=== PATIENT | female | born 1945 | race Caucasian/White ===

== ENCOUNTER 2016-05-30 06:30 | Emergency (ER) | payer OTHER ==
[~2016-05-30] VITALS: Ht 144.8 cm; Wt 53.5 kg
[~2016-05-30 06:30] MED LIST: AMLODIPINE BESY10 M1 PO; AMOXICILLI250 MG/51 PO; ARICEPT10 M1 PO; ATORVASTATIN CA20 MG PO; ATORVASTATIN CA40 MG PO; AUGMENTIN 500M500 MG PO; CLINDAMYCIN HC300 M1 PO; CLONAZEPAM0.5 MG PO; DEPAKENE250 MG/5 M PO; DONEPEZIL HYDRO10 MG PO; DONEPEZIL HYDROC5 MG PO; ESCITALOPRAM20 MG PO; FLONASE ALLERG9.9 ML NAS; HALDOL 1MG TABLE1 MG PO; HALOPERIDOL1 M1 PO; HALOPERIDOL2 M1 PO; HCTZ; HYZAAR 12.5 MG-1 TAB PO; KEFLEX500 MG PO; KLONOPIN0.5 M1 PO; LEXAPRO10 M1 PO; LEXAPRO5 MG/5 ML PO; LIORESAL 10MG T10 MG PO; LIPITOR40 M1 PO; LOSARTAN; MIRALAX17 G1 PO; NORTRIPTYLINE H25 MG; OXYCODONE5 M1 PO; PERCOCET 325 MG1 TA2 PO; PERI-COLACE 501 TAB PO; RISPERIDONE0.25 MG; SENNOSIDES-DOC1 EACH PO; VITAMIN B122500 MC1 PO; VITAMIN B12500 MCG PO; VITAMIN D3400 UNI1 PO
[2016-05-30] MEDS ORDERED: TRAMADOL HCL50 M1 PO (08:04)
[2016-05-30] MEDS ORDERED: LINZESS145 MC1 PO (08:05)
--- NOTE | 2016-05-30 09:05 | RADIOLOGY REPORT ---
EXAMINATION: XR PORTABLE CHEST CLINICAL INFORMATION: 71-year-old female with cough. Symptoms of bronchitis. COMPARISON: Chest x-ray done 04/12/2016. TECHNIQUE: AP portable semierect view of the chest. Exam is somewhat limited by the fact the patient could not lift her head which overlies one half of the left hemithorax. FINDINGS: The heart is top normal in size. The visualized lungs are clear of active disease. There is no apparent pleural effusion. IMPRESSION: Limited exam. No active disease.
[2016-05-30 09:18] VITALS: BP 115/56
[2016-05-30] MEDS ORDERED: AMOXICILLI400 MG/51 PO (09:29)
[2016-05-30] MEDS ORDERED: AFRIN30 ML NASB (09:29)
[2016-05-30] MEDS ORDERED: ROBITUSSIN COU118 M1 PO (09:29)
--- NOTE | 2016-05-30 09:29 | ED INFLUENZA/URI COMPLAINT ---
History of Present Illness General Chief Complaint: General Adult Stated Complaint: BIBA BAD COUGH Source: family, old records Exam Limitations: not alert/orientated, clinical condition Vital Signs & Intake/Output Vital Signs & Intake/Output Vital Signs Date Time Temp Pulse Resp B/P Pulse O2 O2 Flow FiO2 Ox Delivery Rate 05/30 0918 96.5 57 16 115/56 95 Room Air 05/30 0639 97.1 63 16 142/65 95 Room Air Allergies Coded Allergies: NO KNOWN ALLERGIES (04/12/16) Reconcile Medications Amlodipine Besylate (Amlodipine) 10 MG TABLET 1 TAB PO DAILY HEART HEALTH ( Reported) Amoxicillin 400 MG/5 ML SUSP.RECON 10 ML PO BID sinusitis Atorvastatin Calcium (Lipitor) 40 MG TABLET 1 TAB PO QPM CHOLESTEROL ( Reported) CHOLECALCIFEROL (VITAMIN D3) (Vitamin D3) 400 UNIT TAB.CHEW 1 TAB PO DAILY SUPPLEMENT (Reported) Clonazepam (Klonopin) 0.5 MG TABLET 1 TAB PO BID ANXIETY (Reported) Cyanocobalamin (Vitamin B12) 500 MCG TAB 1 TAB PO DAILY SUPPLEMENT (Reported) Donepezil HCl (Aricept) 10 MG TABLET 1 TAB PO QPM DEMENTIA (Reported) Escitalopram Oxalate (Lexapro) 10 MG TABLET 1 TAB PO QAM DEPRESSION/ANXIETY ( Reported) Guaifenesin/Dextromethorphan (Robitussin Cough-Chest Dm Liq) 200 MG-10 MG/5 ML LIQUID 10 ML PO Q6P PRN cough Haloperidol 1 MG TABLET 1 TAB PO BID AGITATION (Reported) Linaclotide (Linzess) 145 MCG CAPSULE 1 CAP PO DAILY GI (Reported) Oxymetazoline HCl (Afrin) 0.05 % SPRAY 2 SPRAY NASB BID sinusitis Sennosides/Docusate Sodium (Sennosides-Docusate Sodium Tab) 8.6 MG-50 MG TABLET 1 TAB PO QPM CONSTIPATION (Reported) Tramadol HCl 50 MG TABLET 1 TAB PO BIDP PRN PAIN (Reported) Valproic Acid (Depakene 250MG/5ML UNIT DOSE CUP) 250 MG/5 ML (5 ML) SOLUTION 1 TSP PO BID SEIZURES (Reported) Triage Note: PT BIBA FROM HOME FOR COUGH THAT HAS LASTED A COUPLE WEEKS NOW BUT HAS WORSENED OVER THE LAST COUPLE DAYS. PT HAS HX OF CVA AND PARALYZED ON LEFT SIDE. UPON ARRIVAL PT ALERT, ANSWERS TO SOME QUESTIONS. Triage Nurses Notes Reviewed? yes Onset: 1 month Duration: week(s):, waxing and waning Timing: recent history Severity: moderate Prior Episodes/Possible Cause: illness exposure No Modifying Factors: none Associated Symptoms: cough, nasal congestion, nasal drainage LMP (ages 10-50): post menopausal : No Patient currently breastfeeds: No HPI: 1 month prior to admission reports patient is had episodic cough worse at night preceded by nasal congestion and sneezing. There has been no fever chills nausea vomiting diarrhea abdominal pain chest pain shortness breath headache dysuria rash bleeding. Past History Travel History Traveled to [place] past 21 day No Medical History Any Pertinent Medical History? see below for history Neurological: CVA, dementia, seizure, CVA, LEFT HEMIPARESIS EENT: NONE Cardiovascular: hypertension, hyperlipidemia Respiratory: NONE Gastrointestinal: constipation Hepatic: NONE Renal: NONE Musculoskeletal: NONE Psychiatric: anxiety, depression Endocrine: NONE Blood Disorders: NONE Cancer(s): NONE INTER COM SERVICER/Reproductive: NONE History of MRSA: No History of VRE: No History of CDIFF: No Surgical History Surgical History: non-contributory Psychosocial History Who do you live with Spouse Services at Home Home Health Aide, Nursing What is your primary language Latvian Tobacco Use: Never used Family History Family History, If Any: BROTHER (pilonidal abscess). Hx Contributory? No Review of Systems Review of Systems Constitutional: Reports: no symptoms. EENTM: Reports: no symptoms. Respiratory: Reports: see HPI, cough. Cardiovascular: Reports: no symptoms. GI: Reports: no symptoms. Genitourinary: Reports: no symptoms. Musculoskeletal: Reports: no symptoms. Skin: Reports: no symptoms. Neurological/Psychological: Reports: no symptoms. Hematologic/Endocrine: Reports: no symptoms. Immunologic/Allergic: Reports: no symptoms. All Other Systems: Reviewed and Negative Physical Exam Physical Exam General Appearance: well developed/nourished, awake, comfortable Head: atraumatic, normal appearance Eyes: Bilateral: normal appearance, PERRL, EOMI. Ears, Nose, Throat: moist mucous membrane, nasal congestion Neck: normal inspection, supple, full range of motion, trachea midline, no midline tenderness Respiratory: normal breath sounds, chest non-tender, no respiratory distress, quiet respiration, lungs clear Cardiovascular: regular rate/rhythm, normal peripheral pulses, norml femoral pulses equa Peripheral Pulses: 4+ carotid (R), 4+ carotid (L) Gastrointestinal: normal bowel sounds, soft, non-tender, no organomegaly Back: normal inspection, normal range of motion Extremities: normal inspection, normal capillary refill, normal range of motion, no edema Neurologic/Psych: no motor/sensory deficits, awake, alert, nutritionist public health II-XII nml as tested, motor/sensory deficits Reflexes: 2+: bicep (R), bicep (L). Skin: intact, normal color, warm/dry Lymphatic: no anterior cervical clovis Core Measures Severe Sepsis Present: No Septic Shock Present: No Progress Differential Diagnosis: influenza, otitis, pneumonia, pharyngitis, sinusitis Plan of Care: antibiotics afrin antitussive Diagnostic Imaging: Viewed by Me: Radiology Read. Discussed w/RAD: Radiology Read. CXR Impression: no acute abnormality Initial ED EKG: none Departure Departure Time of Disposition: 923 Disposition: HOME OR SELF CARE Condition: Stable Clinical Impression Primary Impression: Sinusitis Qualifiers: Sinusitis location: unspecified location Chronicity: acute Recurrence: not specified as recurrent Qualified Code: J01.90 - Acute sinusitis, unspecified Referrals: JESSICA PULIDO MD (PCP/Family) Departure Forms: Customer Survey General Discharge Information Prescriptions: Current Visit Scripts Amoxicillin 10 ML PO BID #200 ML Oxymetazoline HCl (Afrin) 2 SPRAY NASB BID #30 ML Guaifenesin/Dextromethorphan (Robitussin Cough-Chest Dm Liq) 10 ML PO Q6P PRN cough #240 ML Ref 1
== END 2016-05-30 09:41 ==
LOC: ERH 06:30
DX: J32.9 Chronic sinusitis, unspecified (principal)

== ENCOUNTER 2016-07-07 22:24 | Inpatient (IN) | payer OTHER ==
[~2016-07-07] VITALS: Ht 157.5 cm; Wt 45.4 kg
[~2016-07-07 22:24] MED LIST changes: +AFRIN30 ML NASB; +AMOXICILLI400 MG/51 PO; +LINZESS145 MC1 PO; +ROBITUSSIN COU118 M1 PO; +TRAMADOL HCL50 M1 PO
--- NOTE | 2016-07-07 22:40 | ED DYSPNEA/ASTHMA COMPLAINT ---
History of Present Illness General Chief Complaint: General Adult Stated Complaint: BIBA, COUGH, VOMITING Source: patient, EMS Exam Limitations: clinical condition Vital Signs & Intake/Output Vital Signs & Intake/Output Vital Signs Date Time Temp Pulse Resp B/P Pulse O2 O2 Flow FiO2 Ox Delivery Rate 07/08 0241 98.3 63 20 113/53 98 Room Air 07/07 2304 95 Nasal 2.0L Cannula 07/07 2250 97 Nasal 2.0L Cannula 07/077 99.8 84 20 164/70 94 Nasal 2.0L Cannula Allergies Coded Allergies: NO KNOWN ALLERGIES (04/12/16) Reconcile Medications Amlodipine Besylate (Amlodipine) 10 MG TABLET 1 TAB PO DAILY HEART HEALTH ( Reported) Amoxicillin 400 MG/5 ML SUSP.RECON 10 ML PO BID sinusitis Atorvastatin Calcium (Lipitor) 40 MG TABLET 1 TAB PO QPM CHOLESTEROL ( Reported) CHOLECALCIFEROL (VITAMIN D3) (Vitamin D3) 400 UNIT TAB.CHEW 1 TAB PO DAILY SUPPLEMENT (Reported) Clonazepam (Klonopin) 0.5 MG TABLET 1 TAB PO BID ANXIETY (Reported) Cyanocobalamin (Vitamin B12) 500 MCG TAB 1 TAB PO DAILY SUPPLEMENT (Reported) Donepezil HCl (Aricept) 10 MG TABLET 1 TAB PO QPM DEMENTIA (Reported) Escitalopram Oxalate (Lexapro) 10 MG TABLET 1 TAB PO QAM DEPRESSION/ANXIETY ( Reported) Guaifenesin/Dextromethorphan (Robitussin Cough-Chest Dm Liq) 200 MG-10 MG/5 ML LIQUID 10 ML PO Q6P PRN cough Haloperidol 1 MG TABLET 1 TAB PO BID AGITATION (Reported) Linaclotide (Linzess) 145 MCG CAPSULE 1 CAP PO DAILY GI (Reported) Oxymetazoline HCl (Afrin) 0.05 % SPRAY 2 SPRAY NASB BID sinusitis Sennosides/Docusate Sodium (Sennosides-Docusate Sodium Tab) 8.6 MG-50 MG TABLET 1 TAB PO QPM CONSTIPATION (Reported) Tramadol HCl 50 MG TABLET 1 TAB PO BIDP PRN PAIN (Reported) Valproic Acid (Depakene 250MG/5ML UNIT DOSE CUP) 250 MG/5 ML (5 ML) SOLUTION 1 TSP PO BID SEIZURES (Reported) Triage Nurses Notes Reviewed? yes Onset: Gradual Duration: day(s): Timing: recent history Severity: moderate Activities at Onset: none Prior Episodes/Possible Cause: occasional episodes Modifying Factors: Improves With: rest. Associated Symptoms: cough HPI: 71-year-old woman history of stroke and aspiration pneumonia presents with cough dyspnea and hypoxia. Her son states that she has been to the emergency department 3 times. She has been on oral antibiotics. She continues to cough to the point where she becomes short of breath. 911 was called. Her O2 sat was 90% in the field. Her son states that she has been increasingly lethargic, with decreased oral intake. She also has a cough productive of some phlegm. She has no fever, nausea, vomiting, diarrhea. Past History Travel History Traveled to [place] past 21 day No Medical History Any Pertinent Medical History? 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 Hx Contributory? No Review of Systems Review of Systems Constitutional: Reports: no symptoms. EENTM: Reports: no symptoms. Respiratory: Reports: no symptoms. Cardiovascular: Reports: no symptoms. GI: Reports: no symptoms. Genitourinary: Reports: no symptoms. Musculoskeletal: Reports: no symptoms. Skin: Reports: no symptoms. Neurological/Psychological: Reports: no symptoms. Hematologic/Endocrine: Reports: no symptoms. Immunologic/Allergic: Reports: no symptoms. All Other Systems: Reviewed and Negative Physical Exam Physical Exam General Appearance: well developed/nourished, mild distress Head: atraumatic, normal appearance Eyes: Bilateral: normal appearance. Ears, Nose, Throat: normal pharynx Neck: normal inspection Respiratory: rhonchi Cardiovascular: regular rate/rhythm Gastrointestinal: normal bowel sounds, soft, non-tender, no organomegaly Extremities: normal inspection, normal capillary refill, normal range of motion, no edema Neurologic/Psych: left-sided milagros-paracystic with contraction of the left hand. Skin: intact, normal color, warm/dry Core Measures ACS in differential dx? No Severe Sepsis Present: No Septic Shock Present: No Progress Differential Diagnosis: asthma, AMI, bronchitis, CHF, COPD, pneumonia Plan of Care: Orders Procedure Date/time Status Nothing by Mouth 07/08 B Active CBC WITHOUT DIFFERENTIAL 07/08 06 Active BASIC ELECTROLYTES PLUS BUN&CR 07/08 06 Active URINALYSIS 07/08 0221 Active Patient Data 07/08 0217 Active Pathway - chart 07/08 0206 Active House Staff 07/08 0206 Active Patient Data 07/08 0206 Active RAPID VIRAL INFLUENZA A 07/08 0206 Active STREP PNEUMO URINARY ANTIGEN 07/08 0206 Active LEGIONELLA URINARY ANTIGEN 07/08 0206 Active LOWER RESPIRATORY CULTURE 07/08 0206 Active Patient Data 07/08 0131 Active Saline Lock 07/08 0129 Active Misc Message 07/08 0129 Active ED Holding Orders 07/08 0129 Active Admit to inpatient 07/08 0129 Active Vital Signs 07/08 0129 Active Code Status 07/08 0129 Active SWALLOW EVALUATION 07/08 UNK Active VTE Mechanical Prophylaxis 07/[address] CHEST W IV CONTRAST 07/08 UNK Active BLOOD CULTURE 07/07 2245 Active BLOOD CULTURE 07/07 2241 Active TROPONIN LEVEL 07/07 2241 Complete COMPREHENSIVE METABOLIC PANEL 07/07 2241 Complete CBC WITHOUT DIFFERENTIAL 07/07 2241 Complete Current Medications Sig/Claudette Start time Last Medication Dose Stop Time Status Admin Atorvastatin Calcium 40 MG QPM 07/08 2200 AC (Lipitor) Donepezil HCl 10 MG QPM 07/08 2200 UNVr (Aricept) Senna/Docusate Sodium 1 TAB QPM 07/08 2200 AC (Senokot S) Amlodipine Besylate 10 MG DAILY 07/08 1000 UNVr (Norvasc) Enoxaparin Sodium 40 MG DAILY 07/08 1000 UNVr (Lovenox) Escitalopram Oxalate 10 MG QAM 07/08 1000 UNVr (Lexapro) Sodium Chloride 1,000 ML Q13H 07/08 0230 UNVr (Normal Saline 0.9%) Acetaminophen 1,000 MG Q6P PRN 07/08 0215 AC (Ofirmev) N/A 1 UNIT (No Carrier) Acetaminophen 650 MG Q6P PRN 07/08 0145 AC (Tylenol) Docusate Sodium 100 MG DAILY NEEDED PRN 07/08 144 AC (Colace) Ibuprofen 600 MG Q6P PRN 07/08 144 UNVr (Motrin) Clonazepam 0.5 MG BID 07/08 140 AC (KlonoPIN) 07/16 139 Valproic Acid 250 MG BID 07/08 140 UNVr (Depakene) Laboratory Tests 07/08/16 0014: Anion Gap 10, Estimated GFR 55 L, BUN/Creatinine Ratio 24.0, Glucose 98, Calcium 9.1, Total Bilirubin 0.5, AST 17, ALT 20, Alkaline Phosphatase 97, Troponin I < 0.01, Total Protein 7.4, Albumin 3.5, Globulin 3.9, Albumin/ Globulin Ratio 0.9 L 07/07/16 2345: CBC w Diff NO MAN DIFF REQ, RBC 4.50, MCV 94.7, MCH 32.5 H, RDW 14.1, MPV 9.3, Gran % 85.8 H, Lymphocytes % 6.5 L, Monocytes % 7.4, Eosinophils % 0.3, Basophils % 0 L, Absolute Granulocytes 13.1 H, Absolute Lymphocytes 1.0 L, Absolute Monocytes 1.1 H, Absolute Eosinophils 0, Absolute Basophils 0, PUBS MCHC 34.3 Microbiology 07/08 0249 NASOPHARYN: Influenza Virus A & B Rapid Smear - RECD 07/08 020 URINE ROUT: Legionella Antigen - ORD 07/08 020 URINE ROUT: Streptococcus pneumoniae Antigen (M - ORD 07/08 0206 LOWER RESP: Respiratory Culture - COLB 07/08 020 LOWER RESP: Gram Stain - COLB 07/07 2345 BLOOD: Blood Culture - RECD 07/07 2241 BLOOD: Blood Culture - ORD Diagnostic Imaging: Viewed by Me: Radiology Read. Discussed w/RAD: Radiology Read. CXR Impression: no acute abnormality, no infiltrates, normal size heart, normal mediastinum Initial ED EKG: normal axis, normal intervals, normal p-waves, normal QRS complex, normal sinus rhythm Departure Departure Disposition: STILL A PATIENT Condition: Stable Clinical Impression Primary Impression: Hypoxia Secondary Impressions: Pneumonia Referrals: JESSICA PULIDO MD (PCP/Family) Departure Forms: Customer Survey General Discharge Information Admission Note Spoke With: JESSICA PULIDO MD Documentation of Exam: Documentation of any treatments & extenuating circumstances including Concerns Regarding Discharge (functional status, medication knowledge or non-compliance, living conditions, etc.) that warrant an admission rather than observation: pt with hypoxia to 89-90% on room air, corrects to 95% on 2-3l nc... pt with significant phlegmatous cough. Although cxr is benign, I believe she has aspiration pneumonia vs community acquired pneumonia... pt safe for gen med, iv abx, 02 support. Critical Care Note Critical Care Note Critical Care Time: non-applicable
--- NOTE | 2016-07-07 22:42 | NUR ---
71 YEAR OLD FEMALE BIBA FROM HOME C/O COUGH AND CONGESTION WORSENING THE PAST FEW DAYS. PER EMS PT WAS FOUND TO BE 88% ON RA. PT ARRIVES TO ED ALERT BUT NONVERBAL PER BASELINE. O2 95% ON NC 2L. PT SPOUSE TO BEDSIDE, DR. JIMENEZ IN FOR EVAL.
--- NOTE | 2016-07-07 23:03 | NUR ---
RT TO BEDSIDE FOR DUONEB.
--- NOTE | 2016-07-07 23:12 | RADIOLOGY REPORT ---
EXAMINATION: XR PORTABLE CHEST CLINICAL INFORMATION: Dyspnea. COMPARISON: Chest x-ray 04/12/2016. 05/30/2016 TECHNIQUE: Portable AP portable view of the chest was obtained. 10:47 PM FINDINGS: Lung apices are obscured centrally by the patient's chin. The visualized lungs are normally aerated. No infiltrate. No pleural effusion. The cardiac and the mediastinal contours are normal. There is no pulmonary vascular congestion. IMPRESSION: No acute change of the chest.
--- NOTE | 2016-07-07 23:51 | NUR ---
IV INSERTED. LABS DRAWN-SST,LAV,BLUE 1ST SET BL CULT ALL SENT
[2016-07-08 00:01] LABS: ABSOLUTE BASOPHIL COUNT 0 /CUMM (0.0-0.2); ABSOLUTE EOSINOPHIL COUNT 0 /CUMM (0.0-0.7); ABSOLUTE GRANULOCYTE CT 13.1 /CUMM (1.4-6.5); ABSOLUTE MONOCYTE COUNT 1.1 /CUMM (0.10-0.60); BASOPHIL % 0 % (0.0-2.0); EOSINOPHIL % 0.3 % (0-5); HEMATOCRIT 42.6 % (37-47); MEAN CORPUSCULAR HGB 32.5 PG (27.0-31.0); MEAN CORPUSCULAR HGB CONC 34.3 G/DL (33.0-37.0); MEAN CORPUSCULAR VOLUME 94.7 FL (81.0-99.0); MEAN PLATELET VOLUME 9.3 FL (7.4-10.4); PLATELET COUNT 282 /CUMM (130-400); RBC DISTRIBUTION WIDTH 14.1 % (11.5-14.5); WHITE BLOOD CELL COUNT 15.2 /CUMM (4.8-10.8)
[2016-07-08 00:12] LABS: GRANULOCYTE % 85.8 % (42.2-75.2)
--- NOTE | 2016-07-08 00:15 | NUR ---
SST REDRAWN AND SENT TO LAB.
--- NOTE | 2016-07-08 00:37 | NUR ---
NON PRODUCTIVE COUGH PRESENT TIARA W/PHILLIPIENE GIVE PO
--- NOTE | 2016-07-08 01:30 | NUR ---
HOUSE STAFF HERE TO KAYLIN
--- NOTE | 2016-07-08 02:03 | NUR ---
PT GOING TO ROOM [id number]
--- NOTE | 2016-07-08 02:09 | History & Physical ---
See Addendum KLAUS LONG,MELIZA 07/08/16 0208: General Information and HPI MD Statement: I have seen and personally examined VERONICA TRENT and documented this H&P. The patient is a 71 year old F who presented with a patient stated chief complaint of cough. Source of Information: family Exam Limitations: unable to give history History of Present Illness: This is a 71-year-old lady with a past medical history of CVA with residual left -sided hemiparesis, hypertension, seizures, and depression, dementia, hyperlipidemia is BIBA for evaluation of worsening chronic cough. Patient is nonverbal at baseline and unable to give history, or for the entire history was obtained from her . Patient is reported to have had a 1- month-old chronic cough that has required 2-3 ED visits recently that resulted in patient being sent home on Augmentin and promethazine with codeine. Patient' s pulse reports that her cough today progressively worsened to a point that he decided to activate her Life Alert button. Patient's spouse also reports that he was recently ill with upper respiratory infection required antibiotic treatment. He also reports noticing patient's recent decrease in oral intake and increase weakness/lethargy. He denies noticing the patient having any chills, fevers, choking upon eating, nausea, or vomiting. At baseline, patient is not independent with her ADLs and is mostly bedridden and uses a wheelchair formulation. Patient's pulse reporting feeding patient with only pureed diet. Allergies/Medications Allergies: Coded Allergies: NO KNOWN ALLERGIES (04/12/16) Home Med list Amlodipine Besylate (Amlodipine) 10 MG TABLET 1 TAB PO DAILY HEART HEALTH ( Reported) Amoxicillin 400 MG/5 ML SUSP.RECON 10 ML PO BID sinusitis Atorvastatin Calcium (Lipitor) 40 MG TABLET 1 TAB PO QPM CHOLESTEROL ( Reported) CHOLECALCIFEROL (VITAMIN D3) (Vitamin D3) 400 UNIT TAB.CHEW 1 TAB PO DAILY SUPPLEMENT (Reported) Clonazepam (Klonopin) 0.5 MG TABLET 1 TAB PO BID ANXIETY (Reported) Cyanocobalamin (Vitamin B12) 500 MCG TAB 1 TAB PO DAILY SUPPLEMENT (Reported) Donepezil HCl (Aricept) 10 MG TABLET 1 TAB PO QPM DEMENTIA (Reported) Escitalopram Oxalate (Lexapro) 10 MG TABLET 1 TAB PO QAM DEPRESSION/ANXIETY ( Reported) Guaifenesin/Dextromethorphan (Robitussin Cough-Chest Dm Liq) 200 MG-10 MG/5 ML LIQUID 10 ML PO Q6P PRN cough Haloperidol 1 MG TABLET 1 TAB PO BID AGITATION (Reported) Linaclotide (Linzess) 145 MCG CAPSULE 1 CAP PO DAILY GI (Reported) Oxymetazoline HCl (Afrin) 0.05 % SPRAY 2 SPRAY NASB BID sinusitis Sennosides/Docusate Sodium (Sennosides-Docusate Sodium Tab) 8.6 MG-50 MG TABLET 1 TAB PO QPM CONSTIPATION (Reported) Tramadol HCl 50 MG TABLET 1 TAB PO BIDP PRN PAIN (Reported) Valproic Acid (Depakene 250MG/5ML UNIT DOSE CUP) 250 MG/5 ML (5 ML) SOLUTION 1 TSP PO BID SEIZURES (Reported) Past History Travel History Traveled to [place] past 21 day No Medical History Neurological: CVA, dementia, seizure, CVA, LEFT HEMIPARESIS EENT: NONE Cardiovascular: hypertension, hyperlipidemia Respiratory: NONE Gastrointestinal: constipation Hepatic: NONE Renal: NONE Musculoskeletal: NONE Psychiatric: anxiety, depression Endocrine: NONE Blood Disorders: NONE Cancer(s): NONE HEAD OF HISTORY/Reproductive: NONE History of MRSA: No History of VRE: No History of CDIFF: No Surgical History Surgical History: non-contributory Past Family/Social History Family History Relations & Conditions if any BROTHER (pilonidal abscess). Psychosocial History Services at Home: Home Health Aide, Nursing Review of Systems Review of Systems Constitutional: Reports: see HPI (full ROS Unobtainable). Exam & Diagnostic Data Last 24 Hrs of Vital Signs/I&O Vital Signs Date Time Temp Pulse Resp B/P Pulse O2 O2 Flow FiO2 Ox Delivery Rate 07/09 799 99.4 52 20 92/60 96 Nasal Cannula 07/08 0416 97.7 64 20 100/60 96 Nasal 2.0L Cannula 07/08 0411 96 Nasal 2.0L Cannula 07/08 0241 98.3 63 20 113/53 98 Nasal 2.0L Cannula 07/07 2304 95 Nasal 2.0L Cannula 07/07 2250 97 Nasal 2.0L Cannula 07/07 2236 99.8 84 20 164/70 94 Nasal 2.0L Cannula Intake & Output 07/08 1600 07/08 0800 07/08 0000 Intake Total 680 Output Total 250 Balance 430 Intake, IV 650 Intake, Oral 30 Number 1 Bowel Movements Output, Urine 250 Patient 45.359 kg Weight Physical Exam General Appearance Alert, minimally verbal,unable to access orientation Skin No Significant Lesion HEENT dry oral mucosa Neck Supple, No JVD Lymphatic Cervical nl Cardiovascular Regular Rate, Normal S1, Normal S2 Lungs Clear to Auscultation, Normal Air Movement Abdomen Normal Bowel Sounds, Soft, No Tenderness Neurological right sided hemiparesis Extremities No Clubbing, No Cyanosis, No Edema Vascular Pulses Symmetrical Assessment/Plan Assessment: This is a 71-year-old lady with a past medical history of CVA with residual left hemiparesis, hypertension, mood disorder, dementia, depression is brought in for evaluation of a progressively worsening cough. Impression Progressively worsening cough (onset 1 month ago) History of CVA with residual hemiparesis History of mood disorder History of Birchleaf's disease Plan * Will admit to general medicine floor * Will keep off antibiotic for now, as she needs afebrile, does not have any leukocytosis, and chest x-ray is unremarkable for any acute finding of pneumonia. * Will obtain blood cultures * Will obtain rapid influenza test * Will obtain sputum culture * Will obtain urine Legionella and strep pneumo antigen * Will obtain formal swallow eval, as patient had a recent history of aspiration and is currently on pure diet at home As Ranked By This Provider Problem List: 1. Cough Core Measures/Miscellaneous Acute Coronary Syndrome ACS Diagnosis: No Cerebrovascular Accident CVA/TIA Diagnosis: No Congestive Heart Failure CHF Diagnosis: No Venous Thromboembolism VTE Risk Factors: Age > 40 VTE Prophylaxis Ordered Inpt: Mechanical (ALPS[facility]TEDS) [facility] prophylaxis d/t: No contraindications No VTE Pharm Prophylaxis d/t: Active bleeding VTE Diagnosis: No VTE Type: NONE VTE Confirmed by (Test): NONE Severe Sepsis Severe Sepsis Present: No Septic Shock Septic Shock Present: No Miscellaneous Documentation Attending Case Discussed With: NOVA PRAKASH MD Primary Care Physician: JESSICA PULIDO MD Patient sees these Specialists SERVER Level of Patient Care: General Medicine GINAGUILAR 07/08/16 0209: Resident Review Statement Resident Statement: examined this patient, discussed with advertising intern, agreed with advertising intern Other Findings: Patient is a 71-year-old female with a past medical history of hypertension, dementia, CVA left-sided hemiparesis, seizures, depression, hyperlipidemia, was brought in by an ambulance for the evaluation of worsening cough for the last 1 month. Patient is nonverbal and bedbound at baseline so most of the history was obtained from the . As per ,Patient has been seen in the ER for couple of times in the last 6 weeks with a similar complaints.She has been on Augmentin without any improvement in her symptoms. Tonight she was coughing a lot, could not able to sleep, so was brought in to the ER for further evaluation. 911 was called and she was saturating in the [address] to the hospital. also reported reported worsening lethargic she with decreased oral intake. Denied any fever or chills. Vitals on admission Debridement again 0.8, pulse 84, respiratory rate 20, blood pressure 164/70 saturating more than 92% on 2 L. General Appearance: Alert , nonverbal . Skin: Grossly normal HEENT: PEERLA Neck: Supple, No JVD Cardiovascular: Regular Rate, Normal S1, Normal S2, No Murmurs Lungs: Normal respirations bilaterally without any rhonchi or wheeze Abdomen: Normal Bowel Sounds, without any tenderness Extremities: No Clubbing, No Cyanosis, No Edema Vascular: Normal Pulses Pertinent labs: WBC count 15.2 with granulocytosis of 85.8, normal H&H, elevated BUN with normal creatinine. Chest x-ray :No acute change of the chest. Assessment and plan: 1. Chronic cough worsening for the last couple of days possible bronchitis/ aspiration: * We'll admit the patient to [facility] floor * Patient already received one-time dose of IV ceftriaxone and azithromycin in the ED, will hold off any antibiotics for now, as chest x-ray did not show any evidence of aspiration or pneumonia.If patient spikes a fever will consider starting the patient on IV Unasyn. * Will do CAT scan of the chest with IV contrast. For further evaluation * Blood cultures have been sent will send sputum culture, urine Legionella and strep pneumo antigens check rapid flu. * Monitor vitals every 4 hours * Watch for any hemodynamic instability * Continue oxygen to keep saturations above 92%. * Continue Robitussin with codeine. * Keep the patient nothing by mouth for now continue gentle hydration will do formal swallow elevation the morning 2. History of CVA left-sided hemiparesis: * Continue atorvastatin. 3. History of Alzheimer's disease * Continue Aricept. 4. History of mood disorder: * Continue home dose of valproic acid. 5. Mild to moderate pain controlled with Tylenol 6. DVT prophylaxis with subcutaneous Lovenox 7. Patient is full
--- NOTE | 2016-07-08 03:04 | NUR ---
FLU SWAB OBTAINED AND SENT CATH UA OBTAINED AND SPEC X 3 SENT INCONTINENT OF SM AMT OF SOFT BROWN STOOL.
--- NOTE | 2016-07-08 03:40 | NUR ---
REPORT CALLED TO PAWEL CHRISTINE
[2016-07-08 04:16] VITALS: BP 100/60
[2016-07-08 08:00] VITALS: BP 92/60
[2016-07-08 08:07] LABS: ABSOLUTE BASOPHIL COUNT 0 /CUMM (0.0-0.2); ABSOLUTE EOSINOPHIL COUNT 0 /CUMM (0.0-0.7); ABSOLUTE LYMPH COUNT 0.8 /CUMM (1.2-3.4); MEAN CORPUSCULAR HGB CONC 34.3 G/DL (33.0-37.0)
[2016-07-08 08:15] LABS: ABSOLUTE GRANULOCYTE CT 13.8 /CUMM (1.4-6.5); ABSOLUTE MONOCYTE COUNT 1.3 /CUMM (0.10-0.60); BASOPHIL % 0.1 % (0.0-2.0); EOSINOPHIL % 0.1 % (0-5); MEAN CORPUSCULAR HGB 32.6 PG (27.0-31.0); MEAN CORPUSCULAR VOLUME 94.9 FL (81.0-99.0); MEAN PLATELET VOLUME 9.3 FL (7.4-10.4); PLATELET COUNT 245 /CUMM (130-400); RBC DISTRIBUTION WIDTH 14.4 % (11.5-14.5); RED BLOOD CELL CT 3.47 /CUMM (4.20-5.40); WHITE BLOOD CELL COUNT 15.9 /CUMM (4.8-10.8)
[2016-07-08 08:22] LABS: HEMATOCRIT 32.9 % (37-47)
[2016-07-08 08:45] LABS: GRANULOCYTE % 86.7 % (42.2-75.2)
--- NOTE | 2016-07-08 10:18 | NUR ---
SPEECH THERAPY: ATTEMPTED TO SEE PT FOR SWALLOW EVALUATION. PER RN, PT HAS BEEN LETHARGIC. RN SPOKE TO PT'S WHO INDICATED PT WAS TOLERATING A PUREE DIET AT HOME. AT BEDSIDE, PT WAS SLEEPING; LEANING TOWARDS THE LEFT SIDE. GIVEN VERBAL AND TACTILE STIMULI; PT WAS ABLE TO OPEN HER EYES FOR APPROX. 5 SECONDS. PT UNABLE TO MAINTAIN AROUSAL. ST TO RETURN AT A LATER TIME FOR SWALLOW EVALUATION CLINICALLY INDICATED. D/W RN.
--- NOTE | 2016-07-08 12:36 | Admission Certification ---
Admission Certification Certification Statement - As attending physician, I certify that at the time of - admission, based on clinical presentation, severity of - symptoms, need for further diagnostic testing and - therapeutic interventions, and risk of adverse outcomes - without in-hospital treatment, in my clinical assessment, - this patient requires an acute hospital stay for a minimum - of two nights or longer. I have also considered psychsocial - factors such as support system, advanced age, financial - issues, cognitive issues, and failed out-patient treatments, - past re-admission history, safety of patient, and lack of - compliance as applicable. Specific rationale supporting this admission is: Cough, vomiting, slight hypoxemia low-grade fever with probably aspiration pneumonia
--- NOTE | 2016-07-08 12:38 | PN- Att Addend ---
Attending Addendum Attending Brief Note 71-year-old white female previous history of CVA and aspiration pneumonias. Has been on oral antibiotics and lives at home with her and visiting nurses with her has been sick with a cold patient got worse with cough to the point of maximal vomit came to the ER, with a low-grade temperature and leukocytosis, the chest x-ray showed no acute infiltrates at this time. Repeat x-ray may show any infiltrate, a BUN was slightly elevated Laboratory Tests 07/08 07/08 0710 0304 Chemistry Sodium (137 - 145 mmol/L) 143 Potassium (3.5 - 5.1 mmol/L) 4.1 Chloride (98 - 107 mmol/L) 108 H Carbon Dioxide (22 - 30 mmol/L) 27 Anion Gap (5 - 16) 8 BUN (7 - 17 mg/dL) 24 H Creatinine (0.5 - 1.0 mg/dL) 0.9 Estimated GFR (>60 ml/min) > 60 BUN/Creatinine Ratio (7 - 25 %) 26.7 H Hematology CBC w Diff NO MAN DIFF REQ WBC (4.8 - 10.8 /CUMM) 15.9 H RBC (4.20 - 5.40 /CUMM) 3.47 L Hgb (12.0 - 16.0 G/DL) 11.3 L Hct (37 - 47 %) 32.9 L MCV (81.0 - 99.0 FL) 94.9 MCH (27.0 - 31.0 PG) 32.6 H RDW (11.5 - 14.5 %) 14.4 Plt Count (130 - 400 /CUMM) 245 MPV (7.4 - 10.4 FL) 9.3 Gran % (42.2 - 75.2 %) 86.7 H Lymphocytes % (20.5 - 51.1 %) 5.1 L Monocytes % (1.7 - 9.3 %) 8.0 Eosinophils % (0 - 5 %) 0.1 Basophils % (0.0 - 2.0 %) 0.1 Absolute Granulocytes (1.4 - 6.5 /CUMM) 13.8 H Absolute Lymphocytes (1.2 - 3.4 /CUMM) 0.8 L Absolute Monocytes (0.10 - 0.60 /CUMM) 1.3 H Absolute Eosinophils (0.0 - 0.7 /CUMM) 0 Absolute Basophils (0.0 - 0.2 /CUMM) 0 PUBS MCHC (33.0 - 37.0 G/DL) 34.3 Urines Urinalysis MOD H Urine Color (YEL,AMB,STR) YEL Urine Clarity (CLEAR) CLEAR Urine pH (5.0 - 8.0) 7.0 Ur Specific [place] (1.001 - 1.035) 1.020 Urine Protein (NEG,<30 MG/DL) TRACE H Urine Ketones (NEG) NEG Urine Nitrite (NEG) NEG Urine Bilirubin (NEG) NEG Urine Urobilinogen (0.1 - 1.0 EU/dl) 0.2 Ur Leukocyte Esterase (NEG) NEG Ur Microscopic SEDIMENT EXAMINED Urine RBC (0 - 5 /HPF) RARE Urine WBC (0 - 2 /HPF) RARE Ur Epithelial Cells (NONE,FEW) FEW Urine Bacteria (NEG/NONE) RARE H Urine Mucus (FEW,NONE) FEW Urine Hemoglobin (NEG) NEG Urine Glucose (N MG/DL) NEG 07/08 07/07 0014 2345 Chemistry Sodium (137 - 145 mmol/L) 144 Potassium (3.5 - 5.1 mmol/L) 4.1 Chloride (98 - 107 mmol/L) 104 Carbon Dioxide (22 - 30 mmol/L) 30 Anion Gap (5 - 16) 10 BUN (7 - 17 mg/dL) 24 H Creatinine (0.5 - 1.0 mg/dL) 1.0 Estimated GFR (>60 ml/min) 55 L BUN/Creatinine Ratio (7 - 25 %) 24.0 Glucose (65 - 99 mg/dL) 98 Calcium (8.4 - 10.2 mg/dL) 9.1 Total Bilirubin (0.2 - 1.3 mg/dL) 0.5 AST (14 - 36 U/L) 17 ALT (9 - 52 U/L) 20 Alkaline Phosphatase (<127 U/L) 97 Troponin I (< 0.11 ng/ml) < 0.01 Total Protein (6.3 - 8.2 g/dL) 7.4 Albumin (3.5 - 5.0 g/dL) 3.5 Globulin (1.9 - 4.2 gm/dL) 3.9 Albumin/Globulin Ratio (1.1 - 2.2 %) 0.9 L Hematology CBC w Diff NO MAN DIFF REQ WBC (4.8 - 10.8 /CUMM) 15.2 H RBC (4.20 - 5.40 /CUMM) 4.50 Hgb (12.0 - 16.0 G/DL) 14.6 Hct (37 - 47 %) 42.6 MCV (81.0 - 99.0 FL) 94.7 MCH (27.0 - 31.0 PG) 32.5 H RDW (11.5 - 14.5 %) 14.1 Plt Count (130 - 400 /CUMM) 282 MPV (7.4 - 10.4 FL) 9.3 Gran % (42.2 - 75.2 %) 85.8 H Lymphocytes % (20.5 - 51.1 %) 6.5 L Monocytes % (1.7 - 9.3 %) 7.4 Eosinophils % (0 - 5 %) 0.3 Basophils % (0.0 - 2.0 %) 0 L Absolute Granulocytes (1.4 - 6.5 /CUMM) 13.1 H Absolute Lymphocytes (1.2 - 3.4 /CUMM) 1.0 L Absolute Monocytes (0.10 - 0.60 /CUMM) 1.1 H Absolute Eosinophils (0.0 - 0.7 /CUMM) 0 Absolute Basophils (0.0 - 0.2 /CUMM) 0 PUBS MCHC (33.0 - 37.0 G/DL) 34.3
--- NOTE | 2016-07-08 14:21 | CT SCAN REPORT ---
EXAMINATION: CT CHEST WITH CONTRAST CLINICAL INFORMATION: Cough with fever. Evaluate for lung pathology. COMPARISON: Portable chest 07/07/2016. CT of the chest 01/05/2013. TECHNIQUE: Multidetector volumetric CT imaging of the chest was obtained after the administration of 53 mL of Optiray 320 intravenous contrast without immediate adverse reactions. Axial MIP volume rendering provided. Sagittal and coronal reformatted images were obtained. DLP: 202.33 mGy-cm FINDINGS: [employer] BETTING [employer]GER: Unremarkable. LUNGS: There are dependent subsegmental opacities in both lower lung zepeda, particularly posteriorly and on the left, most likely representing atelectasis. Consolidation or pneumonia cannot be entirely excluded but appear less likely. The lungs are otherwise unremarkable. MEDIASTINUM: There is no mediastinal adenopathy. There are scattered calcifications in the thoracic aorta and coronary arteries. There is a trace posterior pericardial effusion. PLEURA: There is a trace left pleural effusion. AXILLA: No lymphadenopathy. UPPER ABDOMEN: Unremarkable. OSSEOUS STRUCTURES: Unremarkable. IMPRESSION: 1. Probable dependent atelectasis in both lower lung zepeda, left greater than right. Focal consolidation or pneumonia cannot be entirely excluded but appear less likely. 2. Trace left pleural effusion.
[2016-07-08 16:23] VITALS: BP 118/58
[2016-07-08 19:18] VITALS: BP 120/64
[2016-07-08 23:26] VITALS: BP 110/68
--- NOTE | 2016-07-09 05:56 | PN- Housestaff ---
Subjective Follow-up For: Leukocytosis ?Aspiration Pneumonia Subjective: Ms Gonzalez was seen and examined this morning. She is resting comfortably in bed. She reports no acute issues overnight and states that she does feel better. She endorses a mild cough. Cough is nonproductive in nature. Patient is alert however not oriented to time and place. Patient denies any fever, chills, nausea, vomiting. Patient's was at bedside and expressed concern multiple remissions at the hospital over the last 4 weeks. Review of Systems Constitutional: Reports: see HPI. Objective Last 24 Hrs of Vital Signs/I&O Vital Signs Date Time Temp Pulse Resp B/P Pulse O2 O2 Flow FiO2 Ox Delivery Rate 07/09 0919 Nasal 2.5L Cannula 07/09 0906 150/70 07/09 0800 Nasal 2.0L Cannula 07/09 0600 97.4 59 20 150/70 93 Nasal Cannula 07/09 0000 Nasal 2.0L Cannula 07/08 2326 98.0 58 20 110/68 99 Nasal 2.5L Cannula 07/08 1918 99.1 64 20 120/64 20 Nasal 2.0L Cannula 07/08 1623 98.5 59 18 118/58 94 Nasal 2.0L Cannula 07/08 1600 Nasal 2.0L Cannula 07/08 1154 60 118/54 Intake & Output 07/09 1600 07/09 0800 07/09 0000 Intake Total 845 420 Output Total Balance 845 420 Intake, IV 725 300 Intake, Oral 120 120 Number 1 Bowel Movements Physical Exam General Appearance: Alert, Oriented X3, Cooperative Cardiovascular: Normal S1, Normal S2, No Murmurs Lungs: Bilaterral Rhonchi Abdomen: Normal Bowel Sounds, Soft, No Tenderness Extremities: No Edema, Limited movement of Lower Extremities Current Medications: Current Medications Sig/Claudette Start time Last Medication Dose Route Stop Time Status Admin Acetaminophen 1,000 MG Q6P PRN 07/08 0215 AC N/A 1 UNIT IV Acetaminophen 650 MG Q6P PRN 07/08 0145 AC PO Amlodipine Besylate 10 MG DAILY 07/08 1000 AC 07/09 PO 0906 Ampicillin Sodium/ 1,500 MG Q6 07/08 1530 AC 07/09 Sulbactam Sodium IV 0542 Sodium Chloride 100 ML Atorvastatin Calcium 40 MG QPM 07/08 2200 AC 07/08 PO 2253 Clonazepam 0.5 MG BID 07/08 0141 AC 07/09 PO 07/15 0140 0941 Docusate Sodium 100 MG DAILY NEEDED PRN 07/08 0145 AC PO Donepezil HCl 10 MG QPM 07/08 2200 AC 07/08 PO 2253 Enoxaparin Sodium 40 MG DAILY 07/08 1000 AC 07/09 SC 0906 Escitalopram Oxalate 10 MG QAM 07/08 1000 AC 07/09 PO 0906 Guaifenesin 10 ML Q6P PRN 07/09 0145 AC 07/09 PO 0941 Haloperidol 1 MG BID 07/08 1000 AC 07/09 PO 0906 Ibuprofen 600 MG Q6P PRN 07/08 0145 AC PO Linaclotide 145 MCG DAILY 07/08 1000 AC 07/09 PO 0906 Patient Medication 1 ED .STK-MED ONE 07/08 1349 DC Teaching ED 07/08 1350 Senna/Docusate Sodium 1 TAB QPM 07/08 2200 AC 07/08 PO 2253 Sodium Chloride 1,000 ML Q13H 07/08 0230 AC 07/09 IV 0137 Valproic Acid 250 MG BID 07/08 0141 AC 07/09 PO 0906 Assessment/Plan Assessment: This is a 71-year-old female with multiple admissions at [facility] over the last 4 weeks who presented to the emergency department after experiencing worsening cough which has been present for the last 1 month. Chronic cough in the setting of non-resolving symptoms and elevated white count Continue the patient on IV antibiotics. Today is IV Unasyn day 2. White cell count has been trending down and the patient is currently afebrile. If patient's oxygen, is continues to increase consider repeat imaging studies. Initial chest x-ray done on 07/07/2016 showed no changes of chest. If white count continues to trend down patient might be wanted to switch to oral antibiotics. Maintain oxygen saturations above 92%. Legionella and strep Antigen both negative. Follow-up lower respiratory cultures. Patient spikes a fever consider panculture. Repeat CBC in a.m. General deconditioning Ensure electrolytes are within normal limits. Repeat BEP and magnesium in a.m. Lethargy and decreased mentation. Could be accommodation of infection as well as history of CVA. History of Alzheimer disease Continue Aricept. History of subclinical seizures Continue valproic acid. May consider checking reported level the patient continues to experience seizures. DVT prophylaxis Lovenox Code Full code Problem List: 1. Dehydration 2. DECONDITIONING 3. Disorder of urinary bladder 4. Pneumonia 5. Cough Pain Ratin Pain Location: No Pain Pain Goal: Remain pain free Pain Plan: Tylenol PRN Tomorrow's Labs & Rationales: cbc: Monitor WBC in the setting of Antibiotics for aspiration Pneumonia bep: Monitoring Electrolytes, due to deconditioning.
[2016-07-09 06:00] VITALS: BP 150/70
[2016-07-09 11:41] LABS: ABSOLUTE BASOPHIL COUNT 0 /CUMM (0.0-0.2); ABSOLUTE EOSINOPHIL COUNT 0 /CUMM (0.0-0.7); ABSOLUTE GRANULOCYTE CT 8.3 /CUMM (1.4-6.5); HEMATOCRIT 32.9 % (37-47); MEAN CORPUSCULAR HGB CONC 33.5 G/DL (33.0-37.0); MEAN CORPUSCULAR VOLUME 95.7 FL (81.0-99.0); MEAN PLATELET VOLUME 9.3 FL (7.4-10.4); PLATELET COUNT 229 /CUMM (130-400); RBC DISTRIBUTION WIDTH 13.6 % (11.5-14.5); RED BLOOD CELL CT 3.44 /CUMM (4.20-5.40); WHITE BLOOD CELL COUNT 10.3 /CUMM (4.8-10.8)
[2016-07-09 11:53] LABS: BASOPHIL % 0.2 % (0.0-2.0); EOSINOPHIL % 0.2 % (0-5); GRANULOCYTE % 80.4 % (42.2-75.2)
--- NOTE | 2016-07-09 13:07 | PN- Att Addend ---
Attending Addendum Attending Brief Note Patient feeling and looking a little better today. at the bedside. Now that having a little difficulty with the liquids, will use thickened for the fluids. Patient is febrile. No major changes physical will continue respiratory treatments IV antibiotics follow-up chest x-ray and blood work Current Medications Sig/Claudette Start time Last Medication Dose Route Stop Time Status Admin Acetaminophen 1,000 MG Q6P PRN 07/08 0215 AC N/A 1 UNIT IV Acetaminophen 650 MG Q6P PRN 07/08 0145 AC PO Amlodipine Besylate 10 MG DAILY 07/08 1000 AC 07/09 PO 0906 Ampicillin Sodium/ 1,500 MG Q6 07/08 1530 AC 07/09 Sulbactam Sodium IV 1240 Sodium Chloride 100 ML Atorvastatin Calcium 40 MG QPM 07/08 2200 AC 07/08 PO 2253 Clonazepam 0.5 MG BID 07/08 0141 AC 07/09 PO 07/15 0140 0941 Docusate Sodium 100 MG DAILY NEEDED PRN 07/08 0145 AC PO Donepezil HCl 10 MG QPM 07/08 2200 AC 07/08 PO 2253 Enoxaparin Sodium 40 MG DAILY 07/08 1000 AC 07/09 SC 0906 Escitalopram Oxalate 10 MG QAM 07/08 1000 AC 07/09 PO 0906 Guaifenesin 10 ML Q6P PRN 07/09 0145 AC 07/09 PO 0941 Haloperidol 1 MG BID 07/08 1000 AC 07/09 PO 0906 Ibuprofen 600 MG Q6P PRN 07/08 0145 AC PO Linaclotide 145 MCG DAILY 07/08 1000 AC 07/09 PO 0906 Patient Medication 1 ED .[facility] 07/08 1349 NM Teaching ED 07/08 1350 Senna/Docusate Sodium 1 TAB QPM 07/08 2200 AC 07/08 PO 2253 Sodium Chloride 1,000 ML Q13H 07/08 0230 AC 07/09 IV 0137 Valproic Acid 250 MG BID 07/08 0141 AC 07/09 PO 0906 Laboratory Tests 07/09/16 1100: Anion Gap 12, Estimated GFR > 60, BUN/Creatinine Ratio 25.0, Magnesium 1.8, CBC w Diff NO MAN DIFF REQ, RBC 3.44 L, MCV 95.7, MCH 32.0 H, RDW 13.6, MPV 9.3, Gran % 80.4 H, Lymphocytes % 9.9 L, Monocytes % 9.3, Eosinophils % 0.2, Basophils % 0.2, Absolute Granulocytes 8.3 H, Absolute Lymphocytes 1.0 L, Absolute Monocytes 1.0 H, Absolute Eosinophils 0, Absolute Basophils 0, PUBS MCHC 33.5 Vital Signs Date Time Temp Pulse Resp B/P Pulse O2 O2 Flow FiO2 Ox Delivery Rate 07/09 0919 Nasal 2.5L Cannula 07/09 0906 150/70 07/09 0800 Nasal 2.0L Cannula 07/09 0600 97.4 59 20 150/70 93 Nasal Cannula 07/09 0000 Nasal 2.0L Cannula 07/08 2326 98.0 58 20 110/68 99 Nasal 2.5L Cannula 07/08 1918 99.1 64 20 120/64 20 Nasal 2.0L Cannula 07/08 1623 98.5 59 18 118/58 94 Nasal 2.0L Cannula 07/08 1600 Nasal 2.0L Cannula Intake & Output 07/09 1600 07/09 0800 07/09 0000 Intake Total 845 420 Output Total Balance 845 420 Intake, IV 725 300 Intake, Oral 120 120 Number 1 Bowel Movements
[2016-07-09 14:13] VITALS: BP 100/60
[2016-07-09 22:08] VITALS: BP 134/56
[2016-07-10 06:55] VITALS: BP 150/70
--- NOTE | 2016-07-10 07:09 | NUR ---
PT GROSSLY INCONTINENT x 2, NO STRAIGHT CATH THIS SHIFT.
--- NOTE | 2016-07-10 08:02 | PN- Housestaff ---
Subjective Follow-up For: worsening cough urinary retention Subjective: I saw the patient today morning She is still coughing, had urinary retention last night in addition to incontinence. she had some bloody mucus discharge upon suctioning her nares and very congested. Had a BM today morning. She is less communicative at baseline. Review of Systems Constitutional: Reports: see HPI. Comments: ROS cannot be appreciated as per the patients condition. Objective Last 24 Hrs of Vital Signs/I&O Vital Signs Date Time Temp Pulse Resp B/P Pulse O2 O2 Flow FiO2 Ox Delivery Rate 07/10 0655 96.3 50 20 150/70 100 Nasal 2.5L Cannula 07/09 2310 95 Nasal 2.0L Cannula 07/09 2208 99.2 53 20 134/56 95 Nasal 3.0L Cannula 07/09 1413 97.0 59 18 100/60 93 Nasal 2.0L Cannula 07/09 0919 Nasal 2.5L Cannula 07/09 0906 150/70 Intake & Output 07/10 1600 07/10 0800 07/10 0000 Intake Total 660 840 Output Total Balance 660 840 Intake, IV 600 600 Intake, Oral 60 240 Physical Exam General Appearance: Alert, Cooperative, No Acute Distress Skin: No Rashes, No Breakdown HEENT: Atraumatic, PERRLA, EOMI Neck: Supple Cardiovascular: Normal S1, Normal S2 Lungs: Clear to Auscultation, Normal Air Movement Abdomen: Normal Bowel Sounds, Soft, No Tenderness Neurological: Normal Tone Extremities: No Clubbing, No Cyanosis Vascular: Normal Pulses, Pulses Symmetrical Current Medications: Current Medications Sig/Claudette Start time Last Medication Dose Route Stop Time Status Admin Acetaminophen 1,000 MG Q6P PRN 07/08 0215 AC N/A 1 UNIT IV Acetaminophen 650 MG Q6P PRN 07/08 0145 AC PO Amlodipine Besylate 10 MG DAILY 07/08 1000 AC 07/09 PO 0906 Ampicillin Sodium/ 1,500 MG Q6 07/08 1530 AC 07/10 Sulbactam Sodium IV 0516 Sodium Chloride 100 ML Atorvastatin Calcium 40 MG QPM 07/08 2199 AC 07/09 PO 2004 Clonazepam 0.5 MG BID 07/08 0141 AC 07/09 PO 07/15 0140 2004 Docusate Sodium 100 MG DAILY NEEDED PRN 07/08 0145 AC PO Donepezil HCl 10 MG QPM 07/08 2199 AC 07/09 PO 2005 Enoxaparin Sodium 40 MG DAILY 07/08 1000 AC 07/09 SC 0906 Escitalopram Oxalate 10 MG QAM 07/08 1000 AC 07/09 PO 0906 Guaifenesin 10 ML Q6P PRN 07/09 0145 AC 07/09 PO 1621 Haloperidol 1 MG BID 07/08 1000 AC 07/09 PO 2005 Ibuprofen 600 MG Q6P PRN 07/08 0145 AC PO Linaclotide 145 MCG DAILY 07/08 1000 AC 07/09 PO 0906 Senna/Docusate Sodium 1 TAB QPM 07/08 2200 AC 07/09 PO 2005 Sodium Chloride 1,000 ML Q13H 07/08 0230 AC 07/10 IV 0612 Valproic Acid 250 MG BID 07/08 0141 AC 07/09 PO 2005 Last 24 Hrs of Lab/Britton Results Last 24 Hrs of Labs/Mics: Laboratory Tests 07/10/16 0610: Sodium Pending, Potassium Pending, Chloride Pending, Carbon Dioxide Pending, Anion Gap Pending, BUN Pending, Creatinine Pending, BUN/Creatinine Ratio Pending , Magnesium Pending, CBC w Diff Pending, WBC Pending, RBC Pending, Hgb Pending, Hct Pending, MCV Pending, MCH Pending, RDW Pending, Plt Count Pending, MPV Pending, PUBS MCHC Pending 07/09/16 1100: Anion Gap 12, Estimated GFR > 60, BUN/Creatinine Ratio 25.0, Magnesium 1.8, CBC w Diff NO MAN DIFF REQ, RBC 3.44 L, MCV 95.7, MCH 32.0 H, RDW 13.6, MPV 9.3, Gran % 80.4 H, Lymphocytes % 9.9 L, Monocytes % 9.3, Eosinophils % 0.2, Basophils % 0.2, Absolute Granulocytes 8.3 H, Absolute Lymphocytes 1.0 L, Absolute Monocytes 1.0 H, Absolute Eosinophils 0, Absolute Basophils 0, PUBS MCHC 33.5 Lines/Diet/Fluids Lines: peripheral lines Assessment/Plan Assessment: This is a 71-year-old female with multiple admissions at [facility] over the last 4 weeks who presented to the emergency department after experiencing worsening cough which has been present for the last 1 month. Chronic cough in the setting of non-resolving symptoms and elevated white count Started patient on Augmentin 875mg BID. White cell count has been trending down and the patient is currently afebrile. If patient's oxygen, is continues to increase consider repeat imaging studies. Initial chest x-ray done on 07/07/2016 showed no changes of chest. Legionella and strep Antigen both negative. Follow-up lower respiratory cultures - negative so far. Patient spikes a fever consider panculture. Repeat CBC in a.m. General deconditioning Ensure electrolytes are within normal limits. Repeat BEP and magnesium in a.m. Please repleat tomorrow. Lethargy and decreased mentation. Could be secondary to infection as well as history of CVA. History of Alzheimer disease Continue Aricept. History of subclinical seizures Continue valproic acid and linzess. May consider checking reported level the patient continues to experience seizures. DVT prophylaxis Lovenox Code Full code Problem List: 1. Bronchitis Pain Ratin Pain Location: n/a Pain Goal: Pain 4 or less Pain Plan: Tylenol PRN Tomorrow's Labs & Rationales: BEP to monitor electrolytes - potassium and mag are low.
[2016-07-10 08:44] LABS: ABSOLUTE BASOPHIL COUNT 0 /CUMM (0.0-0.2); ABSOLUTE EOSINOPHIL COUNT 0.1 /CUMM (0.0-0.7); ABSOLUTE GRANULOCYTE CT 5.3 /CUMM (1.4-6.5); ABSOLUTE LYMPH COUNT 1.7 /CUMM (1.2-3.4); BASOPHIL % 0.3 % (0.0-2.0); GRANULOCYTE % 64.9 % (42.2-75.2); HEMATOCRIT 34.4 % (37-47); MEAN CORPUSCULAR HGB 32.4 PG (27.0-31.0); MEAN CORPUSCULAR VOLUME 95.4 FL (81.0-99.0); MEAN PLATELET VOLUME 9.2 FL (7.4-10.4); PLATELET COUNT 222 /CUMM (130-400); RBC DISTRIBUTION WIDTH 14.1 % (11.5-14.5); RED BLOOD CELL CT 3.61 /CUMM (4.20-5.40); WHITE BLOOD CELL COUNT 8.1 /CUMM (4.8-10.8)
--- NOTE | 2016-07-10 11:02 | NUR ---
PT MOVING FROM 220 BED 2 TO RM 221. [employer] TANESHA, NOTIFIED.
--- NOTE | 2016-07-10 13:33 | PN- Att Addend ---
Attending Addendum Attending Brief Note Patient laying comfortably in bed oxygen still on last O2 saturation was 90-93% on oxygen, we'll continue to monitor saturations and see if she would be able to come out of her oxygen. Patient is febrile today vital signs are stable. No major changes physical her white count is down to normal urine will recheck chest x-ray in the morning. If stable in a.m. then start disposition plans. Current Medications Sig/Claudette Start time Last Medication Dose Route Stop Time Status Admin Acetaminophen 1,000 MG Q6P PRN 07/08 0215 AC N/A 1 UNIT IV Acetaminophen 650 MG Q6P PRN 07/08 0145 AC PO Albuterol Sulfate 3 ML Q4P PRN 07/10 1030 AC INH Albuterol Sulfate 3 ML Q6 PRN 07/10 0930 AC 07/10 INH 1026 Amlodipine Besylate 10 MG DAILY 07/08 1000 AC 07/10 PO 0838 Ampicillin Sodium/ 1,500 MG Q6 07/08 1530 AC 07/10 Sulbactam Sodium IV 1220 Sodium Chloride 100 ML Atorvastatin Calcium 40 MG QPM 07/08 2200 AC 07/09 PO 2005 Clonazepam 0.5 MG BID 07/08 0141 AC 07/10 PO 07/15 0140 0839 Docusate Sodium 100 MG DAILY NEEDED PRN 07/08 0145 AC PO Donepezil HCl 10 MG QPM 07/08 2200 AC 07/09 PO 2005 Enoxaparin Sodium 40 MG DAILY 07/08 1000 AC 07/10 SC 0839 Escitalopram Oxalate 10 MG QAM 07/08 1000 AC 07/10 PO 0837 Guaifenesin 10 ML Q6P PRN 07/10 0915 DC PO Guaifenesin 10 ML Q6P PRN 07/09 0145 AC 07/10 PO 1132 Haloperidol 1 MG BID 07/08 1000 AC 07/10 PO 0837 Ibuprofen 600 MG Q6P PRN 07/08 0145 AC PO Linaclotide 145 MCG DAILY 07/08 1000 AC 07/10 PO 0837 Potassium Chloride 40 MEQ ONCE ONE 07/10 0915 DC /04 PO / 0916 1132 Senna/Docusate Sodium 1 TAB QPM 07/08 2200 AC 07/09 PO 2005 Sodium Chloride 1,000 ML Q13H 07/08 0230 AC 07/10 IV 0612 Valproic Acid 250 MG BID 07/08 0141 AC 07/10 PO 0839 Laboratory Tests 07/10/16 0610: Anion Gap 8, Estimated GFR > 60, BUN/Creatinine Ratio 22.9, Magnesium 1.7, CBC w Diff NO MAN DIFF REQ, RBC 3.61 L, MCV 95.4, MCH 32.4 H, RDW 14.1, MPV 9.2, Gran % 64.9, Lymphocytes % 21.4, Monocytes % 12.4 H, Eosinophils % 1.0, Basophils % 0.3, Absolute Granulocytes 5.3, Absolute Lymphocytes 1.7, Absolute Monocytes 1.0 H, Absolute Eosinophils 0.1, Absolute Basophils 0, PUBS MCHC 34.0 Vital Signs Date Time Temp Pulse Resp B/P Pulse O2 O2 Flow FiO2 Ox Delivery Rate 07/10 1030 98 Nasal 2.5L Cannula 07/10 0838 60 150/70 07/10 0800 93 Nasal 2.0L Cannula 07/10 0655 96.3 50 20 150/70 100 Nasal 2.5L Cannula
[2016-07-10 14:07] VITALS: BP 138/62
[2016-07-10 22:06] VITALS: BP 150/72
[2016-07-11 05:49] VITALS: BP 130/64
--- NOTE | 2016-07-11 08:00 | PN- Housestaff ---
Subjective Follow-up For: worsening cough urinary retention Subjective: Patient seen and examined at bedside. She voided multipe times this morning. Cough almost resolved per patient's family and nurse. Patient is alert and awake , denies any pain. Review of Systems Constitutional: Reports: see HPI. Objective Last 24 Hrs of Vital Signs/I&O Vital Signs Date Time Temp Pulse Resp B/P Pulse O2 O2 Flow FiO2 Ox Delivery Rate 07/11 0549 97.1 51 20 130/64 92 Room Air 07/10 220 97.9 60 20 150/72 95 / 1407 96.9 53 20 138/62 97 Nasal 2.0L Cannula 07/10 1030 98 Nasal 2.5L Cannula 07/10 0838 60 150/70 Intake & Output 07/11 1600 07/11 0800 07/11 0000 Intake Total 660 840 Output Total Balance 660 840 Intake, IV 600 600 Intake, Oral 60 240 Physical Exam General Appearance: Alert, Cooperative, No Acute Distress Other Physical Findings: Skin: No Rashes, No Breakdown HEENT: Atraumatic, PERRLA, EOMI Neck: Supple Cardiovascular: Normal S1, Normal S2 Lungs: Clear to Auscultation, Normal Air Movement Abdomen: Normal Bowel Sounds, Soft, No Tenderness Neurological: Normal Tone Extremities: No Clubbing, No Cyanosis Vascular: Normal Pulses, Pulses Symmetrical Current Medications: Current Medications Sig/Claudette Start time Last Medication Dose Route Stop Time Status Admin Acetaminophen 1,000 MG Q6P PRN 07/08 0215 AC N/A 1 UNIT IV Acetaminophen 650 MG Q6P PRN 07/08 0145 AC PO Albuterol Sulfate 3 ML Q4P PRN 07/10 1030 AC INH Albuterol Sulfate 3 ML Q6 PRN 07/10 0930 AC 04 INH 1026 Amlodipine Besylate 10 MG DAILY 07/08 1000 AC 07/10 PO 0838 Amoxicillin/ 875 MG Q12 07/10 2200 AC 07/10 Clavulanate Potassium PO 2134 Ampicillin Sodium/ 1,500 MG Q6 07/08 1530 DC 03/ Sulbactam Sodium IV 1220 Sodium Chloride 100 ML Atorvastatin Calcium 40 MG QPM 07/08 2200 AC 03/04 PO 2134 Clonazepam 0.5 MG BID 07/08 0141 AC 07/10 PO 07/15 0140 2134 Docusate Sodium 100 MG DAILY NEEDED PRN 07/08 0145 AC PO Donepezil HCl 10 MG QPM 07/08 2200 AC 07/10 PO 2134 Enoxaparin Sodium 40 MG DAILY 07/08 1000 AC 07/10 SC 0839 Escitalopram Oxalate 10 MG QAM 07/08 1000 AC 07/10 PO 0837 Guaifenesin 10 ML Q6P PRN 07/10 0915 DC PO Guaifenesin 10 ML Q6P PRN 07/09 0145 AC 07/10 PO 1132 Haloperidol 1 MG BID 07/08 1000 AC 07/10 PO 2134 Ibuprofen 600 MG Q6P PRN 07/08 0145 AC PO Linaclotide 145 MCG DAILY 07/08 1000 AC 07/10 PO 0837 Potassium Chloride 40 MEQ ONCE ONE 07/10 0915 DC 07/10 PO 07/10 0916 1132 Senna/Docusate Sodium 1 TAB QPM 07/08 2200 AC 07/09 PO 2005 Sodium Chloride 1,000 ML Q13H 07/08 0230 AC 07/10 IV 2151 Valproic Acid 250 MG BID 07/08 0141 AC 07/10 PO 2134 Last 24 Hrs of Lab/Britton Results Last 24 Hrs of Labs/Mics: Laboratory Tests 07/11/16 0610: Anion Gap 7, Estimated GFR > 60, BUN/Creatinine Ratio 15.7, Magnesium 1.7 Assessment/Plan Assessment: This is a 71-year-old female with multiple admissions at [facility] over the last 4 weeks who presented to the emergency department after experiencing worsening cough which has been present for the last 1 month. Chronic cough in the setting of non-resolving symptoms and elevated white count Started patient on Augmentin 875mg BID. White cell count has been trending down and the patient is currently afebrile. If patient's oxygen, is continues to increase consider repeat imaging studies. Initial chest x-ray done on 07/07/2016 showed no changes of chest. Legionella and strep Antigen both negative. Follow-up lower respiratory cultures - negative so far. Patient spikes a fever consider panculture. Repeat CBC in a.m. General deconditioning Ensure electrolytes are within normal limits. Repeat BEP and magnesium in a.m. Please repleat tomorrow. Lethargy and decreased mentation. Could be secondary to infection as well as history of CVA. History of Alzheimer disease Continue Aricept. History of subclinical seizures Continue valproic acid and linzess. May consider checking reported level the patient continues to experience seizures. DVT prophylaxis Lovenox Code Full code Problem List: 1. ACUTE ON CHRONIC RENAL FAILURE 2. ACUTE RENAL FAILURE 3. Benign essential hypertension 4. CVA 5. Constipation 6. Craniotomy 7. DECONDITIONING 8. Dehydration 9. Dementia 10. Disorder of urinary bladder 11. NIDDM 12. Seizure 13. Subdural hemorrhage 14. perianal boil 15. s/p I&D 16. Contusion of rib 17. Functional constipation 18. Abdominal pain 19. Leukocytosis 20. Strain of lumbar region 21. Pressure sore 22. Abscess 23. Urinary retention 24. Ingrowing nail, right great toe 25. Cellulitis 26. Cutaneous abscess of groin 27. Constipation 28. UTI (lower urinary tract infection) 29. Syncope 30. Dehydration 31. Weakness generalized 32. Decubitus ulcer, stage 2 with infection 33. Full code status 34. DVT prophylaxis 35. Hypertension 36. Seizure 37. Lactic acidosis 38. Bronchitis 39. Acute hypoxemic respiratory failure 40. Sinusitis 41. Hypoxia 42. Pneumonia 43. Cough Pain Ratin Pain Location: n/a Pain Goal: Remain pain free Pain Plan: Tylenol PRN Tomorrow's Labs & Rationales: BEP to monitor electrolytes - potassium and mag are low.
--- NOTE | 2016-07-11 08:49 | NUR ---
Pt is W/C and bedbound at baseline. After discussing with nursing, pt is not appropriate for PT consult however night splints recommned for B foot drop to prevent continued worsening.
[2016-07-11] MEDS ORDERED: FLUTICASONE PRO16 GM NAS ×2 (09:42→10:10)
[2016-07-11] MEDS ORDERED: AMOX-CLAV 875-1 EACH PO ×2 (09:43→10:10)
--- NOTE | 2016-07-11 09:43 | Patient Discharge Instructions ---
Discharge Instructions General Discharge Information You were seen/treated for: cough possible aspiration Special Instructions: 1. FOllow up with PCP in a week up discharge 2. Follow-up puree Diet with honey thick liquid consistency diet Diet Recommended Diet: Puree diet with honey thick liquid Activity Activity Self Limited: Yes Acute Coronary Syndrome Inclusion Criteria At DC or during hospital stay patient has or had the following: ACS DIAGNOSIS No Discharge Core Measures Meds if any: Prescribed or Continued at Discharge Meds if any: NOT Prescribed or Continued at Discharge Congestive Heart Failure Inclusion Criteria At DC or during hospital stay patient has or had the following: CHF DIAGNOSIS No Discharge Core Measures Meds if any: Prescribed or Continued at Discharge Meds if any: NOT Prescribed or Continued at Discharge Cerebrovascular accident Inclusion Criteria At DC or during hospital stay patient has or had the following: CVA/TIA Diagnosis No Discharge Core Measures Meds if any: Prescribed or Continued at Discharge Meds if any: NOT Prescribed or Continued at Discharge Venous thromboembolism Inclusion Criteria VTE Diagnosis No VTE Type NONE VTE Confirmed by (Test) NONE Discharge Core Measures - Per Current guidelines, there needs to be overlap - treatment for the first 5 days of Warfarin therapy. - If discharged on Warfarin prior to 5 days of - overlap therapy, the patient will need to be - assessed for post discharge needs including - *Post discharge parental anticoagulation - *Warfarin and/or parental anticoagulation education - *Follow up date to check INR post discharge At least 5 days overlap therapy as Inpatient No Meds if any: Prescribed or Continued at Discharge Note: Overlap Therapy is Warfarin and Anticoagulant Meds if any: NOT Prescribed or Continued at Discharge
[2016-07-11 10:41] VITALS: BP 138/60
--- NOTE | 2016-07-11 12:05 | PN- Att Addend ---
Attending Addendum Attending Brief Note Patient stable today she is a febrile, in no acute distress, urinating okay now. We'll start disposition plans to go home with home care. See the discharge summary and W 10 and CMR Current Medications Sig/Claudette Start time Last Medication Dose Route Stop Time Status Admin Acetaminophen 1,000 MG Q6P PRN 07/08 0215 AC N/A 1 UNIT IV Acetaminophen 650 MG Q6P PRN / 0145 AC PO Albuterol Sulfate 3 ML Q4P PRN 07/10 1030 AC INH Albuterol Sulfate 3 ML Q6 PRN 07/10 0930 AC 07/10 INH 1026 Amlodipine Besylate 10 MG DAILY 07/08 1000 AC 07/11 PO 1041 Amoxicillin/ 875 MG Q12 07/10 2200 AC 07/11 Clavulanate Potassium PO 1039 Ampicillin Sodium/ 1,500 MG Q6 07/08 1530 DC / Sulbactam Sodium IV 1220 Sodium Chloride 100 ML Atorvastatin Calcium 40 MG QPM 07/08 2200 AC 07/10 PO 2134 Clonazepam 0.5 MG BID 07/08 0141 AC 07/11 PO 07/15 0140 1040 Docusate Sodium 100 MG DAILY NEEDED PRN 07/08 0145 AC PO Donepezil HCl 10 MG QPM 07/08 2200 AC 07/10 PO 2134 Enoxaparin Sodium 40 MG DAILY 07/08 1000 AC 07/11 SC 1041 Escitalopram Oxalate 10 MG QAM 07/08 1000 AC 07/11 PO 1040 Fluticasone 1 SPRAY BID 07/11 1000 AC 07/11 Propionate BRANDON 1040 Guaifenesin 10 ML Q6P PRN 07/09 0145 AC 07/10 PO 1132 Haloperidol 1 MG BID 07/08 1000 AC 07/11 PO 1040 Ibuprofen 600 MG Q6P PRN 07/08 0145 AC PO Linaclotide 145 MCG DAILY 07/08 1000 AC 07/11 PO 1041 Senna/Docusate Sodium 1 TAB QPM 07/08 2200 AC 07/09 PO 2005 Sodium Chloride 1,000 ML Q13H 07/08 0230 AC 03 IV 0952 Valproic Acid 250 MG BID 07/08 0141 AC 07/11 PO 1040 Laboratory Tests 07/11/16 0610: Anion Gap 7, Estimated GFR > 60, BUN/Creatinine Ratio 15.7, Magnesium 1.7 Vital Signs Date Time Temp Pulse Resp B/P Pulse O2 O2 Flow FiO2 Ox Delivery Rate 07/11 1041 60 138/60 07/11 0800 Room Air 07/11 0549 97.1 51 20 130/64 92 Room Air 07/10 2206 97.9 60 20 150/72 95 07/10 1407 96.9 53 20 138/62 97 Nasal 2.0L Cannula Intake & Output 07/11 1600 07/11 0800 07/11 0000 Intake Total 660 840 Output Total Balance 660 840 Intake, IV 600 600 Intake, Oral 60 240
[2016-07-11] MEDS ORDERED: AUGMENTIN600 MG/5 M PO (12:23)
--- NOTE | 2016-07-20 15:42 | Discharge Summary ---
Visit Information Visit Dates Admission Date: 07/08/16 Discharge Date: 07/11/16 Hospital Course Course Attending Physician: JESSICA SALDIVAR MD Primary Care Physician: JESSICA SALDIVAR MD Hospital Course: 71-year-old white female being cared at home by and visiting nurses shyness homebound still having some difficulties coughing not bringing up much sputum. Was treated with antibiotics for an outpatient but did not comes to the emergency room found to be slightly Hypoxemic. His blood work showed some elevation of the white count. Patient was treated with antibiotics oxygen respiratory therapy she had a swallowing evaluation having some difficulty with the liquids which were after that the patient slowly improved white count Went back to normal and arrangements were made for the patient to be discharged on July 11 again with home care Complications: None Allergies: Coded Allergies: NO KNOWN ALLERGIES (04/12/16) Significant Procedures: SERVICE DATE: 07/07/16-2240 EXAM TYPE: RAD - XRY-PORTABLE CHEST XRAY EXAMINATION: XR PORTABLE CHEST CLINICAL INFORMATION: Dyspnea. COMPARISON: Chest x-ray 04/12/2016. 05/30/2016 TECHNIQUE: Portable AP portable view of the chest was obtained. 10:47 PM FINDINGS: Lung apices are obscured centrally by the patient's chin. The visualized lungs are normally aerated. No infiltrate. No pleural effusion. The cardiac and the mediastinal contours are normal. There is no pulmonary vascular congestion. IMPRESSION: No acute change of the chest. SERVICE DATE: 07/08/16- EXAM TYPE: CAT - CT CHEST W IV CONTRAST EXAMINATION: CT CHEST WITH CONTRAST CLINICAL INFORMATION: Cough with fever. Evaluate for lung pathology. COMPARISON: Portable chest 07/07/2016. CT of the chest 01/05/2013. TECHNIQUE: Multidetector volumetric CT imaging of the chest was obtained after the administration of 53 mL of Optiray 320 intravenous contrast without immediate adverse reactions. Axial MIP volume rendering provided. Sagittal and coronal reformatted images were obtained. DLP: 202.33 mGy-cm FINDINGS: BUSINESS ADMINISTRATION TEACHER: Unremarkable. LUNGS: There are dependent subsegmental opacities in both lower lung zepeda, particularly posteriorly and on the left, most likely representing atelectasis. Consolidation or pneumonia cannot be entirely excluded but appear less likely. The lungs are otherwise unremarkable. MEDIASTINUM: There is no mediastinal adenopathy. There are scattered calcifications in the thoracic aorta and coronary arteries. There is a trace posterior pericardial effusion. PLEURA: There is a trace left pleural effusion. AXILLA: No lymphadenopathy. UPPER ABDOMEN: Unremarkable. OSSEOUS STRUCTURES: Unremarkable. IMPRESSION: 1. Probable dependent atelectasis in both lower lung zepeda, left greater than right. Focal consolidation or pneumonia cannot be entirely excluded but appear less likely. 2. Trace left pleural effusion. SERVICE DATE: 07/18/16 EXAM TYPE: RAD - XRY-CHEST XRAY, ONE VIEW ONLY EXAMINATION:\H\ \N\XR CHEST CLINICAL INFORMATION: Cough, shortness of breath. Evaluate for pneumonia. COMPARISON: Portable chest x-ray 07/07/2016. TECHNIQUE: Single AP view of the chest was obtained. FINDINGS: The lungs are hypoinflated but clear without focal airspace consolidation. No pleural effusions or pneumothoraces are identified. Cardiomediastinal contours are stable. Soft tissues are unremarkable. No acute osseous abnormality is identified. IMPRESSION: Pulmonary hypoinflation. No acute pulmonary process. Pertinent Lab Results: 07/09/16 1100: Anion Gap 12, Estimated GFR > 60, BUN/Creatinine Ratio 25.0, Magnesium 1.8, CBC w Diff NO MAN DIFF REQ, RBC 3.44 L, MCV 95.7, MCH 32.0 H, RDW 13.6, MPV 9.3, Gran % 80.4 H, Lymphocytes % 9.9 L, Monocytes % 9.3, Eosinophils % 0.2, Basophils % 0.2, Absolute Granulocytes 8.3 H, Absolute Lymphocytes 1.0 L, Absolute Monocytes 1.0 H, Absolute Eosinophils 0, Absolute Basophils 0, PUBS MCHC 33.5 07/10/16 0610: Anion Gap 8, Estimated GFR > 60, BUN/Creatinine Ratio 22.9, Magnesium 1.7, CBC w Diff NO MAN DIFF REQ, RBC 3.61 L, MCV 95.4, MCH 32.4 H, RDW 14.1, MPV 9.2, Gran % 64.9, Lymphocytes % 21.4, Monocytes % 12.4 H, Eosinophils % 1.0, Basophils % 0.3, Absolute Granulocytes 5.3, Absolute Lymphocytes 1.7, Absolute Monocytes 1.0 H, Absolute Eosinophils 0.1, Absolute Basophils 0, PUBS MCHC 34.0 07/11/16 0610: Anion Gap 7, Estimated GFR > 60, BUN/Creatinine Ratio 15.7, Magnesium 1.7 Disposition Summary Disposition Principal Diagnosis: Aspiration pneumonia with hypoxemia Cough Additional Diagnosis: CVA with left-sided weakness Dysphagia Hypertension Seizures Dementia Or lipidemia Discharge Disposition: home health services Discharge Instructions General Discharge Information Code Status: Full Code Patient's Diet: Healthy heart with thickened fluids Patient's Activity: Self-limited Follow-Up Instructions/Appts: Follow with Dr. Saldivar Medications at Discharge Discharge Medications: Stop taking the following medications: Amoxicillin (Amoxicillin) 400 MG/5 ML SUSP.RECON ORAL TWICE DAILY Qty = 200 Continue taking these medications: Clonazepam (Klonopin) 0.5 MG TABLET 1 Tablet ORAL TWICE DAILY Comments: Last Taken: 08/10/15 Time: 10 AM Atorvastatin Calcium (Lipitor) 40 MG TABLET 1 Tablet ORAL Every night Comments: Last Taken: 08/10/15 Time: 9PM Sennosides/Docusate Sodium (Sennosides-Docusate Sodium Tab) 8.6 MG-50 MG TABLET 1 Tablet ORAL Every night Comments: Last Taken: 08/10/15 Time: 10AM Donepezil HCl (Aricept) 10 MG TABLET 1 Tablet ORAL Every night Qty = 30 Comments: Last Taken: 08/10/15 Time: 10AM Haloperidol (Haloperidol) 1 MG TABLET 1 Tablet ORAL TWICE DAILY Qty = 60 Tramadol HCl (Tramadol HCl) 50 MG TABLET 1 Tablet ORAL as needed for PAIN Qty = 30 Comments: PER PT MED LIST Linaclotide (Linzess) 145 MCG CAPSULE 1 Capsule ORAL DAILY Qty = 30 Start taking the following new medications: Fluticasone Propionate (Fluticasone Propionate) 50 MCG/ACTUATION SPRAY.SUSP 2 Hallie In the nose TWICE DAILY as needed for nasal congestion Qty = 1 No Refills Instructions: do not use it for more then 5 days straight Copies To: JESSICA SALDIVAR MD Attending MD Review Statement Documenting Attending: JESSICA SALDIVAR MD
== END 2016-07-11 14:40 | disposition home health service (06) | DRG 202 ==
LOC: ENRESERVTM → ENRESERVDT → ERH 22:24 → ERHI 07-08 01:29 → DELPENDDIS 07-08 01:29 → 1NO 07-08 01:29 → ENPENDDIS 07-08 01:29 → 2NA 07-08 01:29 → 1NO 07-08 04:05 → 2NA 07-08 19:10
PROVIDERS: Pediatrics; Radiology Diagnostic Radiology; Student in an Organized Health Care Education/Training Program; ADMIT Internal Medicine
DX: J40 Bronchitis, not specified as acute or chronic (principal); I69.354 Hemiplegia and hemiparesis following cerebral infarction affecting left non-dominant side; R56.9 Unspecified convulsions; G30.9 Alzheimer's disease, unspecified; F02.80 Dementia in other diseases classified elsewhere, unspecified severity, without behavioral disturbance, psychotic disturbance, mood disturbance, and anxiety; R33.9 Retention of urine, unspecified; I10 Essential (primary) hypertension; E78.5 Hyperlipidemia, unspecified; F32.9 Major depressive disorder, single episode, unspecified; F41.9 Anxiety disorder, unspecified; F39 Unspecified mood [affective] disorder
CPT/HCPCS: 2NAP; 36415; 81001; 82436; 87040; 87070; 87449; 87450; 87804; 87804-59; 96374; 96375; J0456; J0696; J1650; J2930; J7060

== ENCOUNTER 2016-07-18 14:39 | Emergency (ER) | payer OTHER ==
[~2016-07-18] VITALS: Ht 154.9 cm; Wt 63.5 kg
[~2016-07-18 14:39] MED LIST changes: +AMOX-CLAV 875-1 EACH PO; +AUGMENTIN600 MG/5 M PO; +FLUTICASONE PRO16 GM NAS
--- NOTE | 2016-07-18 15:00 | ED INFLUENZA/URI COMPLAINT ---
History of Present Illness General Chief Complaint: Upper Respiratory Sx/Fever Stated Complaint: COUGH, RECENT ADMISSION FOR PNA/BRONCHITIS Source: patient Exam Limitations: no limitations Vital Signs & Intake/Output Vital Signs & Intake/Output Vital Signs Date Time Temp Pulse Resp B/P Pulse O2 O2 Flow FiO2 Ox Delivery Rate 07/18 1557 96 07/18 1456 97.4 60 18 122/60 98 Room Air 07/18 1455 98 Room Air Allergies Coded Allergies: NO KNOWN ALLERGIES (04/12/16) Reconcile Medications Albuterol Sulfate 2.5 MG/3 ML (0.083 %) VIAL.NEB 1 Vial INH/MELANIE AD PRN RESPIRATORY (Reported) Albuterol Sulfate (Proair Hfa) 90 MCG HFA.AER.AD 1-2 PUF INH AD RESPIRATORY ( Reported) Amlodipine Besylate 10 MG TABLET 1 TAB PO QAM HEART/BP (Reported) Atorvastatin Calcium (Lipitor) 40 MG TABLET 1 TAB PO QPM CHOLESTEROL ( Reported) Cholecalciferol (Vitamin D3) (Vitamin D3) 400 UNIT TABLET 1 TAB PO QAM SUPPLEMENT (Reported) Clonazepam (Klonopin) 0.5 MG TABLET 1 TAB PO BID ANXIETY (Reported) Cyanocobalamin (Vitamin B-12) 1,000 MCG TABLET 1 TAB PO DAILY SUPPLEMENT ( Reported) Donepezil HCl (Aricept) 10 MG TABLET 1 TAB PO QPM DEMENTIA (Reported) Fluticasone Propionate 50 MCG/ACTUATION SPRAY.SUSP 2 SPRAY BRANDON BID PRN nasal congestion do not use it for more then 5 days straight Haloperidol 1 MG TABLET 1 TAB PO BID AGITATION (Reported) Linaclotide (Linzess) 145 MCG CAPSULE 1 CAP PO DAILY GI (Reported) Robitussin AC (Guaifenesin-Codeine Syrup) 200 MG-20 MG/10 ML LIQUID 1 TSP PO Q6 PRN COUGH Sennosides/Docusate Sodium (Sennosides-Docusate Sodium Tab) 8.6 MG-50 MG TABLET 1 TAB PO QPM CONSTIPATION (Reported) Tramadol HCl 50 MG TABLET 1 TAB PO PRN PAIN (Reported) Valproic Acid (Depakene) 250 MG/5 ML SOLUTION 5 ML PO BID SEIZURES (Reported) Triage Note: 71 YO FEMALE BIBA FROM HOME. PT HX OF DEMENTIA AND CVA WITH L SIDED PARALYSIS. PER PTS PT WAS D/C FROM [place] [facility] 1 WEEK AGO, PT WAS ADMITTED WITH PNA. PER PT HAS HAD PERSISTANT COUGH SINCE D/C, STATES SHE IS NOT ABLE TO BRING ANYTHING UP WIHT THE COUGH, DENIES FEVERS AT HOME. PT ALERT BUT NOT ABLE TO COMMUNICATE, PER PT IS AT BASELINE AT THIS TIME. Triage Nurses Notes Reviewed? yes Onset: FEW MONTHS, PERSISTENT Duration: week(s): (SEVERAL WEEKS) Timing: recent history Severity: mild No Modifying Factors: none Associated Symptoms: DRY COUGH, RHINORRHEA HPI: 71 year old female with history of dementia, CVA, left sided hemiparesis who presnts via EMS from home accompanied by her for runny nose, congestion and coughing spells. She was recently admitted to the hospital for pneumonia. This is the 4th visit to the ER in the last severeal months. He states that her doctor has added nasal sprays, that she has a nebulizer at home but states that nothing is helping. Her head tends to hang down which seems to make things worse. Past History Travel History Traveled to [place] past 21 day No Medical History Any Pertinent Medical History? see below for history Neurological: CVA, dementia, seizure, CVA, LEFT HEMIPARESIS EENT: NONE Cardiovascular: hypertension, hyperlipidemia Respiratory: NONE Gastrointestinal: constipation Hepatic: NONE Renal: NONE Musculoskeletal: NONE Psychiatric: anxiety, depression Endocrine: NONE Blood Disorders: NONE Cancer(s): NONE SUPERINTENDENT CONSTRUCTION/Reproductive: NONE History of MRSA: No History of VRE: No History of CDIFF: No Surgical History Surgical History: non-contributory Psychosocial History Who do you live with Spouse Services at Home Home Health Aide, Nursing What is your primary language Ukrainian Tobacco Use: Cognitive Impairment Family History Family History, If Any: BROTHER (pilonidal abscess). Hx Contributory? No Review of Systems Review of Systems Constitutional: Denies: chills, fever. EENTM: Reports: nasal congestion. Respiratory: Reports: cough, short of breath. Denies: sputum production. Cardiovascular: Denies: chest pain. GI: Denies: abdominal pain. Genitourinary: Reports: no symptoms. Musculoskeletal: Reports: no symptoms. Skin: Reports: no symptoms. Neurological/Psychological: Reports: no symptoms. Hematologic/Endocrine: Denies: bruising, bleeding, polyuria, polydipsia. Immunologic/Allergic: Denies: splenectomy. All Other Systems: Reviewed and Negative Physical Exam Physical Exam General Appearance: well developed/nourished, alert, awake Head: atraumatic Eyes: Bilateral: normal appearance, PERRL, EOMI. Ears, Nose, Throat: normal ENT inspection, hearing grossly normal Neck: normal inspection, supple, full range of motion Respiratory: decreased breath sounds, wheezing Cardiovascular: regular rate/rhythm Peripheral Pulses: 2+ radial (R), 2+ radial (L) Neurologic/Psych: awake, alert, nonverbal, head hanging down Skin: intact, normal color, warm/dry Core Measures Severe Sepsis Present: No Septic Shock Present: No Progress Differential Diagnosis: influenza, pneumonia, bronchitis, sinusitis, rhinorrhea Plan of Care: Orders Procedure Date/time Status RT ED ORDERS 07/18 1654 Active RT ED ORDERS 07/18 1515 Active COMPREHENSIVE METABOLIC PANEL 07/18 1515 Complete CBC WITHOUT DIFFERENTIAL 07/18 1515 Complete Laboratory Tests 07/18/16 1600: Anion Gap 11, Estimated GFR 49 L, BUN/Creatinine Ratio 22.7, Glucose 131 H, Calcium 8.9, Total Bilirubin 0.5, AST 11 L, ALT 19, Alkaline Phosphatase 83, Total Protein 7.6, Albumin 3.1 L, Globulin 4.5 H, Albumin/Globulin Ratio 0.7 L, CBC w Diff MAN DIFF ORDERED, RBC 3.37 L, MCV 95.2, MCH 31.5 H, RDW 14.1, MPV 8.3, Gran % 85.8 H, Lymphocytes % 7.1 L, Monocytes % 6.9, Eosinophils % 0.1, Basophils % 0.1, Absolute Granulocytes 10.8 H, Segmented Neutrophils 81 H , Band Neutrophils 5, Absolute Lymphocytes 0.9 L, Lymphocytes 8 L, Monocytes 5 , Absolute Monocytes 0.9 H, Absolute Eosinophils 0, Basophils 1, Absolute Basophils 0, Platelet Estimate ADEQUATE, Polychromasia 1+, Hypochromic- Microcytic 1+, Anisocytosis 1+, Macrocytic Cells 1+, PUBS MCHC 33.1 LABX, CXR, DUONEB ORDERED. IMPROVED AERATION AFTER DUONEB. NO PNEUMONIA. (KAROL LONG,YAMILEX) Diagnostic Imaging: Viewed by Me: Radiology Read. Discussed w/RAD: Radiology Read. CXR Impression: PATIENT: VERONICA TRENT PRESENT AGE: 71 PATIENT ACCOUNT NO: [id number] : 44 LOCATION: [facility] ORDERING PHYSICIAN: YAMILEX ROBERSON MD SERVICE DATE: 07/18/16 EXAM TYPE: RAD - XRY -CHEST XRAY, ONE VIEW ONLY EXAMINATION:\H\ \N\XR CHEST CLINICAL INFORMATION: Cough, shortness of breath. Evaluate for pneumonia. COMPARISON: Portable chest x -ray 07/07/2016. TECHNIQUE: Single AP view of the chest was obtained. FINDINGS: The lungs are hypoinflated but clear without focal airspace consolidation. No pleural effusions or pneumothoraces are identified. Cardiomediastinal contours are stable. Soft tissues are unremarkable. No acute osseous abnormality is identified. IMPRESSION: Pulmonary hypoinflation. No acute pulmonary process. DICTATED BY: PILAR SALCEDO MD DATE/TIME DICTATED:07/18/161612 TOOL AND DIE MAKER:ANTON DATE/TIME TRANSCRIBED:07/18/161612 CONFIDENTIAL, DO NOT COPY WITHOUT APPROPRIATE AUTHORIZATION. <Electronically signed in Other Vendor System> SIGNED BY: PILAR SALCEDO MD 07/18/161618 Initial ED EKG: none Departure Departure Time of Disposition: 1712 Disposition: HOME OR SELF CARE Condition: Stable Clinical Impression Primary Impression: COLLIN (acute kidney injury) Secondary Impressions: Allergic rhinitis Referrals: JESSICA MOORE MD (PCP/Family) Additional Instructions: use the cough medication sparingly. increase the oral fluid intake at home. follow up with dr. moore in the office. return if worse to the er. Departure Forms: Customer Survey General Discharge Information Prescriptions: Current Visit Scripts Robitussin AC (Guaifenesin-Codeine Syrup) 1 TSP PO Q6 PRN COUGH #150 ML
--- NOTE | 2016-07-18 16:19 | RADIOLOGY REPORT ---
EXAMINATION:\H\ \N\XR CHEST CLINICAL INFORMATION: Cough, shortness of breath. Evaluate for pneumonia. COMPARISON: Portable chest x-ray 07/07/2016. TECHNIQUE: Single AP view of the chest was obtained. FINDINGS: The lungs are hypoinflated but clear without focal airspace consolidation. No pleural effusions or pneumothoraces are identified. Cardiomediastinal contours are stable. Soft tissues are unremarkable. No acute osseous abnormality is identified. IMPRESSION: Pulmonary hypoinflation. No acute pulmonary process.
[2016-07-18 16:22] LABS: ABSOLUTE BASOPHIL COUNT 0 /CUMM (0.0-0.2); ABSOLUTE EOSINOPHIL COUNT 0 /CUMM (0.0-0.7); ABSOLUTE GRANULOCYTE CT 10.8 /CUMM (1.4-6.5); ABSOLUTE LYMPH COUNT 0.9 /CUMM (1.2-3.4); ABSOLUTE MONOCYTE COUNT 0.9 /CUMM (0.10-0.60); BASOPHIL % 0.1 % (0.0-2.0); EOSINOPHIL % 0.1 % (0-5); GRANULOCYTE % 85.8 % (42.2-75.2); HEMATOCRIT 32.1 % (37-47); MEAN CORPUSCULAR HGB 31.5 PG (27.0-31.0); MEAN CORPUSCULAR HGB CONC 33.1 G/DL (33.0-37.0); MEAN CORPUSCULAR VOLUME 95.2 FL (81.0-99.0); MEAN PLATELET VOLUME 8.3 FL (7.4-10.4); PLATELET COUNT 403 /CUMM (130-400); RBC DISTRIBUTION WIDTH 14.1 % (11.5-14.5); RED BLOOD CELL CT 3.37 /CUMM (4.20-5.40); WHITE BLOOD CELL COUNT 12.6 /CUMM (4.8-10.8)
[2016-07-18] MEDS ORDERED: VITAMIN B-121000 MC3 PO (16:46)
[2016-07-18] MEDS ORDERED: ALBUTEROL2.5 MG/3 M INH/SOL (16:49)
[2016-07-18] MEDS ORDERED: PROAIR HFA8.5 GM INH (16:50)
[2016-07-18] MEDS ORDERED: GUAIFENESIN-COD10 ML PO (17:12)
[2016-07-18 17:15] VITALS: BP 158/70
== END 2016-07-18 17:35 ==
LOC: ERH 14:39
PROVIDERS: Emergency Medicine
DX: N17.9 Acute kidney failure, unspecified (principal); J30.9 Allergic rhinitis, unspecified
CPT/HCPCS: 1263

== ENCOUNTER 2017-09-09 10:03 | Inpatient (IN) | payer OTHER ==
[~2017-09-09] VITALS: Ht 157.5 cm; Wt 57.3 kg
[~2017-09-09 10:03] MED LIST changes: +ALBUTEROL2.5 MG/3 M INH/SOL; +GUAIFENESIN-COD10 ML PO; +PROAIR HFA8.5 GM INH; +VITAMIN B-121000 MC3 PO
[2017-09-09 10:50] LABS: ABSOLUTE BASOPHIL COUNT 0 /CUMM (0.0-0.2); ABSOLUTE EOSINOPHIL COUNT 0 /CUMM (0.0-0.7); ABSOLUTE LYMPH COUNT 1.1 /CUMM (1.2-3.4); ABSOLUTE MONOCYTE COUNT 0.8 /CUMM (0.10-0.60); BASOPHIL % 0.3 % (0.0-2.0); EOSINOPHIL % 0.1 % (0-5); GRANULOCYTE % 86.6 % (42.2-75.2); MEAN CORPUSCULAR HGB 31.6 PG (27.0-31.0); MEAN CORPUSCULAR HGB CONC 33.9 G/DL (33.0-37.0); MEAN CORPUSCULAR VOLUME 93.3 FL (81.0-99.0); MEAN PLATELET VOLUME 7.9 FL (7.4-10.4); PLATELET COUNT 457 /CUMM (130-400); RBC DISTRIBUTION WIDTH 14.2 % (11.5-14.5); RED BLOOD CELL CT 3.86 /CUMM (4.20-5.40)
--- NOTE | 2017-09-09 10:55 | ED GENERAL ADULT ---
See Addendum History of Present Illness General Chief Complaint: General Adult Stated Complaint: BIBA, R/O UTI Source: patient, family, old records Exam Limitations: no limitations Vital Signs & Intake/Output Vital Signs & Intake/Output Vital Signs Date Time Temp Pulse Resp B/P B/P Pulse O2 O2 Flow FiO2 Mean Ox Delivery Rate 09/09 1343 97.1 58 18 104/72 98 09/09 1139 95 09/09 1006 98.2 66 16 128/67 98 Room Air Allergies Coded Allergies: NO KNOWN ALLERGIES (04/12/16) Triage Note: PT BIBA FROM HOME C/C "DARK COFFEE-LOOKING" URINE UPON CATHERIZATION BY HOME HEALTH NURSE THIS MORNING. PER EMS PT HAD TEMP YESTERDAY 102. AFEBRILE TODAY. PT ALERT, MINIMAL VERBAL RESPONSE TO BASELINE SECONDARY TO CVA. LEFT SIDED PARALYSIS. Triage Nurses Notes Reviewed? yes Onset: Abrupt Duration: day(s): (1-2), constant Timing: single episode today Injury Environment: home Severity: mild, moderate No Modifying Factors: none LMP (ages 10-50): post menopausal, unknown : No Patient currently breastfeeds: No HPI: 72-year-old female past medical history of CVA with left-sided deficit, dementia , seizure disorder, hypertension, hyperlipidemia presents for evaluation of possible UTI. Family reports that patient had a fever of 102 yesterday. The nurse came today and did a straight cath was noted that her urine was very dark and thick. Patient's mental status is at baseline. She has not been complaining of any pain. She had a normal bowel movement today and usually goes every day. No nausea vomiting or diarrhea and no chest pain or shortness of breath no coughing. No rashes. Patient does not ambulate at baseline she is bedbound. (Jensen PEÑA,Wyatt) Reconcile Medications Albuterol Sulfate 2.5 MG/3 ML (0.083 %) VIAL.NEB 1 Vial INH/MELANIE AD PRN RESPIRATORY (Reported) Amlodipine Besylate 10 MG TABLET 1 TAB PO QAM HEART/BP (Reported) Atorvastatin Calcium (Lipitor) 40 MG TABLET 1 TAB PO QPM CHOLESTEROL ( Reported) Cholecalciferol (Vitamin D3) (Vitamin D3) 400 UNIT TABLET 1 TAB PO QAM SUPPLEMENT (Reported) Clonazepam (Klonopin) 0.5 MG TABLET 1 TAB PO BID ANXIETY (Reported) Cyanocobalamin (Vitamin B-12) 1,000 MCG TABLET 1 TAB PO DAILY SUPPLEMENT ( Reported) Donepezil HCl (Aricept) 10 MG TABLET 1 TAB PO QPM DEMENTIA (Reported) Fluticasone Propionate 50 MCG/ACTUATION SPRAY.SUSP 2 SPRAY BRANDON BID PRN nasal congestion do not use it for more then 5 days straight Haloperidol 1 MG TABLET 1 TAB PO BID AGITATION (Reported) Linaclotide (Linzess) 145 MCG CAPSULE 1 CAP PO DAILY PRN GI (Reported) Tramadol HCl 50 MG TABLET 1 TAB PO PRN PAIN (Reported) Valproic Acid (Depakene) 250 MG/5 ML SOLUTION 5 ML PO BID SEIZURES (Reported) (Savannah LONG,Rafa Trevizo) Past History Travel History Traveled to [place] past 21 day No Medical History Any Pertinent Medical History? 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 Hx Contributory? No (Wyatt Aguero) Review of Systems Review of Systems Constitutional: Reports: fever, malaise. EENTM: Reports: no symptoms. Respiratory: Reports: no symptoms. Cardiovascular: Reports: no symptoms. GI: Reports: no symptoms. Genitourinary: Reports: see HPI. Musculoskeletal: Reports: no symptoms. Skin: Reports: no symptoms. Neurological/Psychological: Reports: no symptoms. Hematologic/Endocrine: Reports: no symptoms. Immunologic/Allergic: Reports: no symptoms. All Other Systems: Reviewed and Negative (Wyatt Aguero) Physical Exam Physical Exam General Appearance: well developed/nourished, no apparent distress, alert, awake Head: atraumatic, normal appearance Eyes: Bilateral: normal appearance, PERRL, EOMI. Ears, Nose, Throat: hearing grossly normal, LEFT FACIAL DROOP BASELINE Neck: normal inspection, supple, full range of motion Respiratory: normal breath sounds, chest non-tender, no respiratory distress, lungs clear Cardiovascular: regular rate/rhythm, normal peripheral pulses Peripheral Pulses: 2+ radial (R), 2+ radial (L) Gastrointestinal: normal bowel sounds, soft, non-tender, no organomegaly Back: normal inspection, normal range of motion, no vertebral tenderness Extremities: normal inspection, normal range of motion, no edema Neurologic/Psych: no motor/sensory deficits, awake, alert, oriented x 3, normal gait Skin: intact, normal color, warm/dry Lymphatic: no anterior cervical clovis Core Measures ACS in differential dx? No CVA/TIA Diagnosis: No Sepsis Present: No Sepsis Focused Exam Completed? No (Jensen PEÑA,Wyatt) Progress Differential Diagnoses I considered the following diagnoses in my evaluation of the patient: [UTI, sepsis, intracranial hemorrhage, pneumonia, SBO, malignancy, kidney stone, polynephritis] Diagnostic Imaging: Viewed by Me: CT Scan. Discussed w/RAD: CT Scan. Radiology Impression: PATIENT: VERONICA TRENT PRESENT AGE: 72 PATIENT ACCOUNT NO: [id number] : 44 LOCATION: [facility] ORDERING PHYSICIAN: Wyatt PEÑA SERVICE DATE: 09/09/17 EXAM TYPE: CAT - CT HEAD WO IV CONTRAST EXAMINATION: CT HEAD WITHOUT CONTRAST CLINICAL INFORMATION: Altered mental status. Evaluate for intracranial hemorrhage or mass. COMPARISON: CT scan of the head 10/16/2017. TECHNIQUE: Contiguous axial imaging was performed from the skull base to vertex without intravenous administration of contrast. DLP: 616.06 mGy-cm FINDINGS: There are chronic changes of a right craniotomy. There is a small surgical resection cavity within the right middle frontal gyrus and more extensive gliotic changes within the right cerebral hemisphere. There are ill-defined foci of hypoattenuation within the periventricular white matter and global parenchymal volume loss with ex vacuo expansion of the lateral ventricles. Asymmetric loss of volume within the right cerebral peduncle consistent with Wallerian degeneration of the corticospinal tract. No acute intracranial hemorrhage. Grossly no evidence of acute territorial infarct. Mastoid air cells and middle ear cavities are well- aerated. Visualized paranasal sinuses are well-aerated. IMPRESSION: Stable examination with no evidence of acute territorial infarct or hemorrhage. Chronic postoperative changes within the right supratentorial compartment. There is relatively extensive volume loss and periventricular white matter changes that either represent a manifestation of posttreatment effects or chronic small vessel ischemia. DICTATED BY: Christophe Daniels MD DATE/TIME DICTATED:09/09/171345 AUTOCUTTER:ANTON DATE/TIME TRANSCRIBED:09/09/171345 CONFIDENTIAL, DO NOT COPY WITHOUT APPROPRIATE AUTHORIZATION., PATIENT: VERONICA TRENT PRESENT AGE: 72 PATIENT ACCOUNT NO: [id number] : 44 LOCATION: [facility] ORDERING PHYSICIAN: Wyatt PEÑA SERVICE DATE: 09/09/17 EXAM TYPE: CAT - CT ABD & PELVIS W/O IV CONTRAS EXAMINATION: CT ABDOMEN AND PELVIS WITHOUT CONTRAST CLINICAL INFORMATION: Diffuse abdominal pain. UTI. COMPARISON: CT of the abdomen and pelvis 2013. TECHNIQUE: Multidetector volumetric imaging was performed from the superior aspect of the liver through the pubic symphysis. Sagittal and coronal reformatted images were obtained on the technologist's workstation. DLP: 363 mGy -cm FINDINGS: LUNG BASES: Trace subsegmental atelectasis at the left base. LIVER , GALLBLADDER, AND BILIARY TREE: The liver is normal in size, shape, and attenuation. No focal hepatic lesion or biliary ductal dilatation is present. The gallbladder is unremarkable with no evidence of radiopaque gallstones, gallbladder wall thickening, or obvious pericholecystic inflammatory changes. PANCREAS: Unremarkable. SPLEEN: Unremarkable. ADRENAL GLANDS: Unremarkable. KIDNEYS AND URETERS: Vascular calcifications are present bilaterally. No nephrolithiasis, mass, or hydroureteronephrosis. There is minimal fullness in the right pelvis is new since 07/23/2013. There is a subcentimeter exophytic cyst arising from the upper pole of the right kidney. BLADDER: Only partly distended but within normal limits. GASTROINTESTINAL TRACT: The rectal vault is markedly distended but there is no perirectal inflammatory change to suggest stercoral colitis. The appendix is normal. There is a small hiatal hernia. The stomach appears normal. The small bowel is nondistended. ABDOMINAL WALL: No significant hernia is appreciated. LYMPH NODES: Normal. VASCULAR: Atheromatous changes in the abdominal aorta and its branch vessels. PELVIC VISCERA: There is a new 2.8 cm hypodense lesion within the uterine fundus which is new since 11/09. A small amount of nondependent air is also present within the uterine body and at the fundus. There is no evidence of adnexal mass. OSSEOUS STRUCTURES : There is grade 1 anterolisthesis of L4 on L5 related to advanced degenerative facet arthropathy. There is no acute fracture or destructive lesion within the osseous structures. IMPRESSION: - The rectal vault is markedly distended with stool compatible with fecal impaction. No evidence of stercoral colitis or bowel obstruction. - No nephrolithiasis or hydronephrosis. There is mild fullness of the right renal pelvis. - There is new 2.8 cm hypodensity within the uterine fundus in addition to small amount of air in the uterine body and fundus. This finding is of uncertain etiology. Correlation for any prior intervention is recommended. There are no findings to suggest fistulization. A pelvic exam may be helpful. DICTATED BY: Tiffanie Becker MD DATE/TIME DICTATED:09/09/171352 AUTOCUTTER:ANTON DATE/TIME TRANSCRIBED:09/09/171352 CONFIDENTIAL, DO NOT COPY WITHOUT APPROPRIATE AUTHORIZATION. CXR Impression: PATIENT: VERONICA TRENT PRESENT AGE: 72 PATIENT ACCOUNT NO: [id number] : 44 LOCATION: [facility] ORDERING PHYSICIAN: Wyatt PEÑA SERVICE DATE: 09/09/17 EXAM TYPE: RAD - XRY- PORTABLE CHEST XRAY EXAMINATION: XR PORTABLE CHEST CLINICAL INFORMATION: Pneumonia. CHF. Altered mental status. COMPARISON: Chest radiograph 07/18/2016. TECHNIQUE: Portable frontal view of the chest was obtained. FINDINGS: The right hemidiaphragm is elevated. The lungs are otherwise clear without consolidation, edema, or effusion. No pneumothorax. The heart is normal in size. There are atheromatous calcifications in the aorta. There are degenerative changes at both shoulder joints. IMPRESSION: No active disease in the chest. DICTATED BY: Tiffanie Becker MD DATE/TIME DICTATED:09/09/171128 AUTOCUTTER:ANTON DATE/TIME TRANSCRIBED:09/09/171128 CONFIDENTIAL, DO NOT COPY WITHOUT APPROPRIATE AUTHORIZATION. Initial ED EKG: normal sinus rhythm, no ST T wave changes (Wyatt Aguero) Plan of Care: Orders Procedure Date/time Status US-PELVIC MASS DIAG 09/09 1458 Active LACTIC ACID 09/09 1314 Active EKG 09/09 1108 Active TROPONIN LEVEL 09/09 1014 Complete LACTIC ACID 09/09 1014 Complete COMPREHENSIVE METABOLIC PANEL 09/09 1014 Complete CBC WITHOUT DIFFERENTIAL 09/09 1014 Complete CULTURE,URINE 09/09 1012 Active URINALYSIS 09/09 1012 Complete Laboratory Tests 09/09/17 1253: Anion Gap 11, Estimated GFR > 60, BUN/Creatinine Ratio 18.6, Glucose 151 H, Lactic Acid 1.6, Calcium 7.9 L, Total Bilirubin 0.5, AST 13 L, ALT 11, Alkaline Phosphatase 109, Troponin I < 0.01, Total Protein 7.2, Albumin 3.1 L, Globulin 4.1, Albumin/Globulin Ratio 0.8 L 09/09/17 1042: CBC w Diff NO MAN DIFF REQ, RBC 3.86 L, MCV 93.3, MCH 31.6 H, MCHC 33.9, RDW 14.2, MPV 7.9, Gran % 86.6 H, Lymphocytes % 7.5 L, Monocytes % 5.5, Eosinophils % 0.1, Basophils % 0.3, Absolute Granulocytes 13.0 H, Absolute Lymphocytes 1.1 L, Absolute Monocytes 0.8 H, Absolute Eosinophils 0, Absolute Basophils 0 09/09/17 1000: Urine Color BROWN H, Urine Clarity TURBD H, Urine pH 7.0, Ur Specific [place] 1.025, Urine Protein >=300 H, Urine Ketones 15 H, Urine Nitrite NEG, Urine Bilirubin NEG@ICTO, Urine Urobilinogen 0.2, Ur Leukocyte Esterase LARGE H, Ur Microscopic SEDIMENT EXAMINED, Urine RBC >75 H, Urine WBC PACKD H, Ur Epithelial Cells OCCAS, Urine Bacteria PACKD H, Hyaline Casts RARE H, Micro UA Comment MORE INFO: H, Urine Hemoglobin LARGE H, Urine Glucose 100 H Microbiology 09/09 UNK URINE ROUT: Urine Culture - RECD Patient seen and evaluated. She reports fevers and dark urine at home. She has a history of UTIs. Her mental status is at baseline according to the family who is at the bedside. She has a left sided pre-existing deficit. Her vital signs are stable. Urinalysis shows brown thick purulent urine. Culture added. Check basic labs and CT scan of the abdomen and pelvis to look for hydronephrosis/ kidney stones. IV fluids ordered. Blood work shows white blood cell count of 15,[address] scan of the abdomen and pelvis does not show any evidence of hydronephrosis or kidney stones. There is a hypodensity in the uterine fundus and a large amount of stool in the rectal vault. Patient has had a normal bowel movement today according to the family. A gram of IV ceftriaxone was ordered. Ultrasound ordered to further evaluate the uterus. Patient will require admission to the hospital. She is an elderly woman who is bedbound. She is at risk for sepsis if discharged on oral antibiotics. 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 Case discussed with Dr. Nuñez he agrees. (Wyatt Aguero) (Savannha LONG,Rafa Trevizo) Departure Departure Disposition: STILL A PATIENT Condition: Stable Clinical Impression Primary Impression: Acute cystitis Qualifiers: Hematuria presence: with hematuria Qualified Code: N30.01 - Acute cystitis with hematuria Secondary Impressions: Leukocytosis Qualifiers: Leukocytosis type: unspecified Qualified Code: D72.829 - Elevated white blood cell count, unspecified Referrals: Catalino Saldivar MD (PCP/Family) Departure Forms: Customer Survey General Discharge Information Admission Note Spoke With: Catalino Saldivar MD Documentation of Exam: Documentation of any treatments & extenuating circumstances including Concerns Regarding Discharge (functional status, medication knowledge or non-compliance, living conditions, etc.) that warrant an admission rather than observation: Patient is a bedbound elderly woman. She reports high fevers at home she has a white count of 15,000. [IV fluids, IV antibiotics, follow-up cultures, serial labs, follow-up ultrasound, soapsuds enema, physical therapy, case management] (Wyatt Aguero) PA/NEWSPAPER STUFFER Co-Sign Statement Statement: ED Attending supervision documentation- [X] I saw and evaluated the patient. I have also reviewed all the pertinent lab results and diagnostic results. I agree with the findings and the plan of care as documented in the PA's/NEWSPAPER STUFFER's documentation. Patient presents for evaluation of possible urinary tract infection. Physical examination reveals chronic left hemiparesis. [] I have reviewed the ED Record and agree with the PA's/NEWSPAPER STUFFER's documentation. [] Additions or exceptions (if any) to the PAs/NEWSPAPER STUFFER's note and plan are summarized below: [] (Savannah LONG,Rafa Trevizo) Critical Care Note Critical Care Note Critical Care Time: non-applicable (Wyatt Aguero)
--- NOTE | 2017-09-09 11:35 | RADIOLOGY REPORT ---
EXAMINATION: XR PORTABLE CHEST CLINICAL INFORMATION: Pneumonia. CHF. Altered mental status. COMPARISON: Chest radiograph 07/18/2016. TECHNIQUE: Portable frontal view of the chest was obtained. FINDINGS: The right hemidiaphragm is elevated. The lungs are otherwise clear without consolidation, edema, or effusion. No pneumothorax. The heart is normal in size. There are atheromatous calcifications in the aorta. There are degenerative changes at both shoulder joints. IMPRESSION: No active disease in the chest.
--- NOTE | 2017-09-09 13:53 | CT SCAN REPORT ---
EXAMINATION: CT HEAD WITHOUT CONTRAST CLINICAL INFORMATION: Altered mental status. Evaluate for intracranial hemorrhage or mass. COMPARISON: CT scan of the head 10/16/2017. TECHNIQUE: Contiguous axial imaging was performed from the skull base to vertex without intravenous administration of contrast. DLP: 616.06 mGy-cm FINDINGS: There are chronic changes of a right craniotomy. There is a small surgical resection cavity within the right middle frontal gyrus and more extensive gliotic changes within the right cerebral hemisphere. There are ill-defined foci of hypoattenuation within the periventricular white matter and global parenchymal volume loss with ex vacuo expansion of the lateral ventricles. Asymmetric loss of volume within the right cerebral peduncle consistent with Wallerian degeneration of the corticospinal tract. No acute intracranial hemorrhage. Grossly no evidence of acute territorial infarct. Mastoid air cells and middle ear cavities are well-aerated. Visualized paranasal sinuses are well-aerated. IMPRESSION: Stable examination with no evidence of acute territorial infarct or hemorrhage. Chronic postoperative changes within the right supratentorial compartment. There is relatively extensive volume loss and periventricular white matter changes that either represent a manifestation of posttreatment effects or chronic small vessel ischemia.
--- NOTE | 2017-09-09 14:13 | CT SCAN REPORT ---
EXAMINATION: CT ABDOMEN AND PELVIS WITHOUT CONTRAST CLINICAL INFORMATION: Diffuse abdominal pain. UTI. COMPARISON: CT of the abdomen and pelvis 07/23/2013. TECHNIQUE: Multidetector volumetric imaging was performed from the superior aspect of the liver through the pubic symphysis. Sagittal and coronal reformatted images were obtained on the technologist's workstation. DLP: 363 mGy-cm FINDINGS: LUNG BASES: Trace subsegmental atelectasis at the left base. LIVER, GALLBLADDER, AND BILIARY TREE: The liver is normal in size, shape, and attenuation. No focal hepatic lesion or biliary ductal dilatation is present. The gallbladder is unremarkable with no evidence of radiopaque gallstones, gallbladder wall thickening, or obvious pericholecystic inflammatory changes. PANCREAS: Unremarkable. SPLEEN: Unremarkable. ADRENAL GLANDS: Unremarkable. KIDNEYS AND URETERS: Vascular calcifications are present bilaterally. No nephrolithiasis, mass, or hydroureteronephrosis. There is minimal fullness in the right pelvis is new since 07/23/2013. There is a subcentimeter exophytic cyst arising from the upper pole of the right kidney. BLADDER: Only partly distended but within normal limits. GASTROINTESTINAL TRACT: The rectal vault is markedly distended but there is no perirectal inflammatory change to suggest stercoral colitis. The appendix is normal. There is a small hiatal hernia. The stomach appears normal. The small bowel is nondistended. ABDOMINAL WALL: No significant hernia is appreciated. LYMPH NODES: Normal. VASCULAR: Atheromatous changes in the abdominal aorta and its branch vessels. PELVIC VISCERA: There is a new 2.8 cm hypodense lesion within the uterine fundus which is new since 11/09/2013. A small amount of nondependent air is also present within the uterine body and at the fundus. There is no evidence of adnexal mass. OSSEOUS STRUCTURES: There is grade 1 anterolisthesis of L4 on L5 related to advanced degenerative facet arthropathy. There is no acute fracture or destructive lesion within the osseous structures. IMPRESSION: - The rectal vault is markedly distended with stool compatible with fecal impaction. No evidence of stercoral colitis or bowel obstruction. - No nephrolithiasis or hydronephrosis. There is mild fullness of the right renal pelvis. - There is new 2.8 cm hypodensity within the uterine fundus in addition to small amount of air in the uterine body and fundus. This finding is of uncertain etiology. Correlation for any prior intervention is recommended. There are no findings to suggest fistulization. A pelvic exam may be helpful.
--- NOTE | 2017-09-09 15:33 | History & Physical ---
See Addendum Carolina LONG,Erika 09/09/17 1532: General Information and HPI MD Statement: I have seen and personally examined VERONICA TRENT and documented this H&P. The patient is a 72 year old F who presented with a patient stated chief complaint of [urinary discolouration]. Source of Information: patient, family Exam Limitations: unable to give history, dementia History of Present Illness: 72 yo F with PMH of hypertension, hyperlipidemia, depression, CVA with left sided deficits, seizures was brought to the ED for evaluation of UTI. History has been obtained from the family as the patient has dementia at baseline and unable to give any history. The states that for the past month or so the patient has been voiding very little on her own. She has been having greenish- brown discharge in her urine with each void. Today the visiting nurse came and obtained a urine sample via straight cath and drained dark urine. The nurse requested the family members to bring the patient to the ED for further tests. The states that the patient has been bedridden for the past year. Her diet is comprised of baby food (water, fruits and protein shakes). Her review of system per family is negative. Of note, the mentions that the patient had a fever of 101.2 last week for which he gave the patient some tylenol which helped resolve her fever. No chills, shortness of breath, sore throat, cough, chest pain or any other symptoms reported. Allergies/Medications Allergies: Coded Allergies: NO KNOWN ALLERGIES (04/12/16) Home Med list Albuterol Sulfate 2.5 MG/3 ML (0.083 %) VIAL.NEB 1 Vial INH/MELANIE AD PRN RESPIRATORY (Reported) Amlodipine Besylate 10 MG TABLET 1 TAB PO QAM HEART/BP (Reported) Atorvastatin Calcium (Lipitor) 40 MG TABLET 1 TAB PO QPM CHOLESTEROL ( Reported) Cholecalciferol (Vitamin D3) (Vitamin D3) 400 UNIT TABLET 1 TAB PO QAM SUPPLEMENT (Reported) Clonazepam (Klonopin) 0.5 MG TABLET 1 TAB PO BID ANXIETY (Reported) Cyanocobalamin (Vitamin B-12) 1,000 MCG TABLET 1 TAB PO DAILY SUPPLEMENT ( Reported) Donepezil HCl (Aricept) 10 MG TABLET 1 TAB PO QPM DEMENTIA (Reported) Fluticasone Propionate 50 MCG/ACTUATION SPRAY.SUSP 2 SPRAY BRANDON BID PRN nasal congestion do not use it for more then 5 days straight Haloperidol 1 MG TABLET 1 TAB PO BID AGITATION (Reported) Linaclotide (Linzess) 145 MCG CAPSULE 1 CAP PO DAILY PRN GI (Reported) Tramadol HCl 50 MG TABLET 1 TAB PO PRN PAIN (Reported) Valproic Acid (Depakene) 250 MG/5 ML SOLUTION 5 ML PO BID SEIZURES (Reported) Past History Travel History Traveled to [place] past 21 day No Medical History Neurological: CVA, dementia, seizure, CVA, LEFT HEMIPARESIS EENT: NONE Cardiovascular: hypertension, hyperlipidemia Respiratory: NONE Gastrointestinal: constipation Hepatic: NONE Renal: NONE Musculoskeletal: NONE Psychiatric: anxiety, depression Endocrine: NONE Blood Disorders: NONE Cancer(s): NONE HIDE DYER/Reproductive: NONE History of MRSA: No History of VRE: No History of CDIFF: No Surgical History Surgical History: non-contributory Past Family/Social History Family History Relations & Conditions if any BROTHER (pilonidal abscess). Psychosocial History Services at Home: Home Health Aide, Nursing Review of Systems Review of Systems Constitutional: Denies: chills, fever. EENTM: Reports: no symptoms. Cardiovascular: Reports: no symptoms. Respiratory: Reports: no symptoms. GI: Reports: no symptoms. Genitourinary: Reports: no symptoms. Musculoskeletal: Reports: no symptoms. Skin: Reports: no symptoms. Neurological/Psychological: Reports: no symptoms. Hematologic/Endocrine: Reports: no symptoms. Exam & Diagnostic Data Last 24 Hrs of Vital Signs/I&O Vital Signs Date Time Temp Pulse Resp B/P B/P Pulse O2 O2 Flow FiO2 Mean Ox Delivery Rate 09/09 1343 97.1 58 18 104/72 98 09/09 1139 95 09/09 1006 98.2 66 16 128/67 98 Room Air Intake & Output 09/09 1600 09/09 0800 09/09 0000 Intake Total Output Total 50 Balance -50 Output, Urine 50 Patient 140 lb Weight Weight Estimated Measurement Method Physical Exam General Appearance Cooperative, Mild Distress, lethargic, oriented x 1 Skin No Rashes, No Breakdown Skin Temp/Moisture Exam: Warm/Dry Sepsis Skin Exam (color): Normal for Ethnicity HEENT Atraumatic Cardiovascular Normal S1, Normal S2, No Murmurs Lungs Normal Air Movement Abdomen Soft, No Tenderness Neurological Normal Speech Extremities No Edema Last 24 Hrs of Labs/Britton: Laboratory Tests 09/09/17 1253: Anion Gap 11, Estimated GFR > 60, BUN/Creatinine Ratio 18.6, Glucose 151 H, Lactic Acid 1.6, Calcium 7.9 L, Total Bilirubin 0.5, AST 13 L, ALT 11, Alkaline Phosphatase 109, Troponin I < 0.01, Total Protein 7.2, Albumin 3.1 L, Globulin 4.1, Albumin/Globulin Ratio 0.8 L 09/09/17 1042: CBC w Diff NO MAN DIFF REQ, RBC 3.86 L, MCV 93.3, MCH 31.6 H, MCHC 33.9, RDW 14.2, MPV 7.9, Gran % 86.6 H, Lymphocytes % 7.5 L, Monocytes % 5.5, Eosinophils % 0.1, Basophils % 0.3, Absolute Granulocytes 13.0 H, Absolute Lymphocytes 1.1 L, Absolute Monocytes 0.8 H, Absolute Eosinophils 0, Absolute Basophils 0 09/09/17 1000: Urine Color BROWN H, Urine Clarity TURBD H, Urine pH 7.0, Ur Specific [place] 1.025, Urine Protein >=300 H, Urine Ketones 15 H, Urine Nitrite NEG, Urine Bilirubin NEG@ICTO, Urine Urobilinogen 0.2, Ur Leukocyte Esterase LARGE H, Ur Microscopic SEDIMENT EXAMINED, Urine RBC >75 H, Urine WBC PACKD H, Ur Epithelial Cells OCCAS, Urine Bacteria PACKD H, Hyaline Casts RARE H, Micro UA Comment MORE INFO: H, Urine Hemoglobin LARGE H, Urine Glucose 100 H Microbiology 09/09 1526 BLOOD: Blood Culture - ORD 09/09 1526 BLOOD: Blood Culture - ORD 09/09 UNK URINE ROUT: Urine Culture - RECD Assessment/Plan Assessment: 72 yo F with PMH of hypertension, hyperlipidemia, depression, CVA with left sided deficits, seizures was brought to the ED for evaluation of dark coloured urine. On admission, she is found to have an elevated white count and UA with high WBCs, large amount of leukocyte esterase conclusive for urinary tract infection. Assessment: 1. UTI 2. Stool impaction as seen on CT 3. 2.8 cm hypodensity within the uterine fundus 4. History of Hypertension 5. History of CVA with residual left sided deficits. Plan: * Admit to general medicine floor * Will start her on IV Unasyn 3g q6 * Follow up blood cultures * Follow up urine culture * Surgery consult with Dr Leonard for evaluation of enterovesicular fistula. * She has significant stool impaction in her rectum. Will require manual disimpaction followed by enemas and stool softners. * Professor Of Biblical Studies consult as outpatient. * Diet: Heart Healthy * DVT Prophylaxis: SC Lovenox * Code Status: Full Code * Please confirm code status in am from family As Ranked By This Provider Problem List: 1. UTI (urinary tract infection) Core Measures/Misc (01/23) Acute Coronary Syndrome ACS Diagnosis: No Congestive Heart Failure Congestive Heart Failure Diagnosis No Cerebrovascular Accident CVA/TIA Diagnosis: No VTE (View Protocol) VTE Risk Factors Age>40 No Mechanical VTE Prophylaxis d/t N/A MechProphylax Ordered No VTE Pharm Prophylaxis d/t NA PharmProphylax ordered Sepsis (View protocol) Sepsis Present: No Katherin Jorge MD 09/09/17 1556: Resident Review Statement Resident Statement: examined this patient, discussed with record label intern, agreed with record label intern Other Findings: 72 year old female with PMH of dementia, hypertension, stroke with left-sided hemiparalysis, seizures, T2 DM, depression, hyperlipidemia. 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 avoid benzo's. Check QTC before giving haldol -Avoid delirium triggers like noise, dehydration, constipation, pain etc -Keep hydrated, adequate pain control, frequent re-orientation -Avoid opiates due to increased delirium risk -Bowel regimen -Patient was made FC for now as there is no family at bedside. Please confirm code status in AM. -Regular diet-Puree, nectar thick liq for now; formal swallow eval in AM -Nutrition consult for dietary needs assessment -Call family for a more detailed history in AM and confirm home medications -Adequate pain mgt-Place magallanes for bladder decompression -Vitals Q shift -SQ lovenox for DVT ppx -Follow attending marlon Santacruz MD,[facility] 09/09/171939: Attending MD Review Statement Attending Statement Attending MD Statement: examined this patient, discuss w/resident/PA/LANDSCAPE TECHNICIAN, agreed w/resident/PA/LANDSCAPE TECHNICIAN, discussed with family, reviewed EMR data (avail), discussed with nursing, discussed with case mgmt, reviewed images, amended to note Attending Assessment/Plan: Seen and examined independently 72 year old female with PMH of dementia, hypertension, 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 Stevenson to rule out any fistula after disimpaction Magallanes advertising agent consult in the future Cont antiseizure meds, Agreesive stool softners DC tramadol WIll follow
--- NOTE | 2017-09-09 16:38 | ULTRASOUND REPORT ---
EXAMINATION: ULTRASOUND OF THE PELVIS CLINICAL INFORMATION: Hypodensity seen on pelvic CT scan. Presumptive diagnosis of uterine mass/fibroid. COMPARISON: CT scan of the abdomen and pelvis dated 09/09/2017. TECHNIQUE: Transabdominal pelvic ultrasound. FINDINGS: Evaluation is extremely limited due to a decompressed bladder (patient is incontinent and could therefore not be prepped for the transabdominal exam). Due to the high location of the uterus and the largely distended and fecal impacted rectum, transvaginal exam was not felt to be useful and was not attempted in this patient, who also appears to be unable to consent for the transvaginal procedure. Uterus: The uterus is anteverted and elongated, measuring 7.5 x 3.7 x 4.7 cm. Myometrial detail is completely obscured by extensive air within the uterine cavity, which produces a linear echogenic line with posterior dirty shadowing. Ovaries: Not seen. Other: Limited assessment reveals no definite adnexal mass or free fluid collection. IMPRESSION: 1. Extremely limited exam. 2. Redemonstrated is abnormal air within the uterine cavity. On CT scan, air within the endometrial cavity and abnormal thickening of the endometrial stripe versus large amount of endometrial free fluid was also demonstrated. Findings are nonspecific but raise the suspicion of pelvic inflammatory disease/endometritis. Alternatively, there may be subtle fistulous connection with the abnormally gas and fecal distended rectum and the uterus. Close clinical correlation is requested. 3. Ovaries not seen.
[2017-09-09 23:01] VITALS: BP 141/94
--- NOTE | 2017-09-10 05:08 | PN- Housestaff ---
Subjective Follow-up For: UTI Stool Impaction with ?enterovesicular fistula Subjective: Patient was seen and examined at bedside. She has dementia and is unable to give any history. However, denies being in pain. Review of Systems Constitutional: Reports: no symptoms. Objective Last 24 Hrs of Vital Signs/I&O Vital Signs Date Time Temp Pulse Resp B/P B/P Pulse O2 O2 Flow FiO2 Mean Ox Delivery Rate 09/09 2301 98.7 88 20 141/94 96 Room Air 09/09 1848 96 Room Air 09/09 1818 97.0 64 20 140/64 97 Room Air 09/09 1737 Room Air Room Air 09/09 1615 97.4 70 22 142/63 97 Room Air 09/09 1343 97.1 58 18 104/72 98 09/09 1139 95 09/09 1006 98.2 66 16 128/67 98 Room Air Intake & Output 09/10 0800 09/10 0000 09/09 1600 Intake Total 560 Output Total 150 50 Balance 410 -50 Intake, IV 260 Intake, Oral 300 Number 1 Bowel Movements Output, Urine 150 50 Patient 126 lb 140 lb Weight Weight Bed scale Estimated Measurement Method Physical Exam General Appearance: Cooperative, Mild Distress, awake Skin: No Rashes, No Breakdown Skin Temp/Moisture Exam: Warm/Dry Sepsis Skin Exam (color): Normal for Ethnicity Cardiovascular: Normal S1, Normal S2, ANA Lungs: Clear to Auscultation, Normal Air Movement Abdomen: Soft, No Tenderness Neurological: Normal Speech Extremities: No Edema Last 24 Hrs of Lab/Britton Results Last 24 Hrs of Labs/Mics: Laboratory Tests 09/09/17 1808: Lactic Acid 1.3 09/09/17 1253: Anion Gap 11, Estimated GFR > 60, BUN/Creatinine Ratio 18.6, Glucose 151 H, Lactic Acid 1.6, Calcium 7.9 L, Total Bilirubin 0.5, AST 13 L, ALT 11, Alkaline Phosphatase 109, Troponin I < 0.01, Total Protein 7.2, Albumin 3.1 L, Globulin 4.1, Albumin/Globulin Ratio 0.8 L 09/09/17 1042: CBC w Diff NO MAN DIFF REQ, RBC 3.86 L, MCV 93.3, MCH 31.6 H, MCHC 33.9, RDW 14.2, MPV 7.9, Gran % 86.6 H, Lymphocytes % 7.5 L, Monocytes % 5.5, Eosinophils % 0.1, Basophils % 0.3, Absolute Granulocytes 13.0 H, Absolute Lymphocytes 1.1 L, Absolute Monocytes 0.8 H, Absolute Eosinophils 0, Absolute Basophils 0 09/09/17 1000: Urine Color BROWN H, Urine Clarity TURBD H, Urine pH 7.0, Ur Specific [place] 1.025, Urine Protein >=300 H, Urine Ketones 15 H, Urine Nitrite NEG, Urine Bilirubin NEG@ICTO, Urine Urobilinogen 0.2, Ur Leukocyte Esterase LARGE H, Ur Microscopic SEDIMENT EXAMINED, Urine RBC >75 H, Urine WBC PACKD H, Ur Epithelial Cells OCCAS, Urine Bacteria PACKD H, Hyaline Casts RARE H, Micro UA Comment MORE INFO: H, Urine Hemoglobin LARGE H, Urine Glucose 100 H Microbiology 09/09 1808 BLOOD: Blood Culture - RECD 09/09 1526 BLOOD: Blood Culture - COLB 09/09 UNK URINE ROUT: Urine Culture - RECD Assessment/Plan Assessment: 72 yo F with PMH of hypertension, hyperlipidemia, depression, CVA with left sided deficits, seizures was brought to the ED for evaluation of dark coloured urine. On admission, she is found to have an elevated white count and UA with high WBCs, large amount of leukocyte esterase conclusive for urinary tract infection. Assessment: 1. UTI 2. Stool impaction 3. 2.8 cm hypodensity within the uterine fundus 4. History of Hypertension 5. History of CVA with residual left sided deficits. Plan: * Continue IV Unasyn 3g q6 for UTI. Should be covered for anaerobes while awaiting cultures. * Follow up blood cultures * Follow up urine culture * Gen surgery recommendations noted. * She had significant stool impaction in her rectum. She was manually disimpacted last night followed with a large bowel movement after enema. She will continue to require aggressive bowel regimen. * Wire Preparation Machine Tender consult as outpatient. * Diet: Regular (puree). Per family, the patient is on baby food (fruits, protein shake). * DVT Prophylaxis: SC Lovenox * Code Status: Full Code Problem List: 1. UTI (urinary tract infection) Pain Ratin Pain Location: none Pain Goal: Remain pain free Pain Plan: none Tomorrow's Labs & Rationales: CBC
[2017-09-10 06:23] VITALS: BP 133/82
--- NOTE | 2017-09-10 07:25 | PN- General Surgery ---
Subjective Subjective: Asked to see this patient by the primary medical team for the evaluation of colovesical fistula Patient is demented and cannot give history and therefore also has no complaints Patient was admitted yesterday. There were reports of dark stool and possibly fecal material within her stool Review of Systems: Cannot obtain Objective Vital Signs and I&Os Vital Signs Date Time Temp Pulse Resp B/P B/P Pulse O2 O2 Flow FiO2 Mean Ox Delivery Rate 09/10 622 98.1 76 20 133/82 96 Room Air 09/09 2301 98.7 88 20 141/94 96 Room Air 09/09 1848 96 Room Air 09/09 1818 97.0 64 20 140/64 97 Room Air 09/09 1737 Room Air Room Air 09/09 1615 97.4 70 22 142/63 97 Room Air 09/09 1343 97.1 58 18 104/72 98 / 1139 95 09/09 1006 98.2 66 16 128/67 98 Room Air Intake & Output 09/10 0800 09/10 0000 / 1600 09/09 0800 09/09 0000 09/08 1600 Intake Total 560 Output Total 500 150 50 Balance -500 410 -50 Intake, IV 260 Intake, Oral 300 Number 1 Bowel Movements Output, Urine 500 150 50 Patient 126 lb 126 lb 140 lb Weight Weight Bed scale Bed scale Estimated Measurement Method Physical Exam General Appearance: no apparent distress, awake Head: atraumatic Neck: normal inspection Respiratory: no respiratory distress Abdomen: soft, non-tender Neurologic/Psychiatric: awake, nonverbal Skin: intact Assessment/Plan Assessment/Plan This is a 72-year-old female with dementia and neuromotor deficits following CVA She was admitted to the hospital yesterday and there were reports of possibly fecal material within her urine. Patient did indeed have a urinary tract infection. CT scan shows no evidence of diverticulitis. The bladder appears normal and does not contain gas. Brasher catheter this morning is with completely clear yellow Patient has no evidence of colovesical fistula If she were to develop fecal urea recurrent UTI urology consult would be indicated for cystoscopy, however I do not believe that is necessary now Patient clearly has constipation and needs aggressive anticonstipation regimen. Nursing does report large volume of bowel movement following enema last night Attending MD Review Statement Attending Statement Attending MD Statement: examined this patient, reviewed EMR data (avail), reviewed images
[2017-09-10 08:22] LABS: ABSOLUTE BASOPHIL COUNT 0 /CUMM (0.0-0.2); ABSOLUTE MONOCYTE COUNT 0.7 /CUMM (0.10-0.60); MEAN CORPUSCULAR HGB 31.6 PG (27.0-31.0); MEAN CORPUSCULAR HGB CONC 33.6 G/DL (33.0-37.0); MEAN CORPUSCULAR VOLUME 94.1 FL (81.0-99.0)
[2017-09-10 08:58] LABS: ABSOLUTE EOSINOPHIL COUNT 0.1 /CUMM (0.0-0.7); BASOPHIL % 0.1 % (0.0-2.0); EOSINOPHIL % 0.6 % (0-5); GRANULOCYTE % 82.2 % (42.2-75.2); MEAN PLATELET VOLUME 8.6 FL (7.4-10.4); RBC DISTRIBUTION WIDTH 14.4 % (11.5-14.5); RED BLOOD CELL CT 3.26 /CUMM (4.20-5.40); WHITE BLOOD CELL COUNT 9.7 /CUMM (4.8-10.8)
[2017-09-10 09:12] LABS: HEMATOCRIT 30.6 % (37-47)
[2017-09-10 09:19] LABS: PLATELET COUNT 176 /CUMM (130-400)
--- NOTE | 2017-09-10 10:20 | PN- Pulmonary ---
Subjective HPI/Critical Care Issues: UTI Stool Impaction with ?enterovesicular fistula Subjective: Patient was seen and examined at bedside. She has dementia and is unable to give any history. However, denies being in pain. Review of Systems Constitutional: Reports: no symptoms. Large BM with disimpaction yesterday Objective Current Medications: Current Medications Sig/Claudette Start time Last Medication Dose Route Stop Time Status Admin Acetaminophen 650 MG Q6P PRN 09/09 1545 AC PO Amlodipine Besylate 10 MG QAM 09/10 0900 AC PO Ampicillin Sodium/ 3,000 MG Q6 09/09 194 AC 09/10 Sulbactam Sodium IV 0622 Sodium Chloride 100 ML Atorvastatin Calcium 40 MG QPM 09/09 2100 AC 09/09 PO 2311 Bisacodyl 10 MG ONCE ONE 09/[address] 09/10 0801 Ceftriaxone Sodium 1,000 MG DAILY 09/10 0900 CAN IV Ceftriaxone Sodium 1,000 MG ONCE ONE 09/09 1330 DC 09/09 IV 09/09 1331 1337 Docusate Sodium 100 MG DAILY NEEDED PRN 09/10 0800 AC PO Donepezil HCl 10 MG QPM 09/09 2100 AC 09/09 PO 2312 Enoxaparin Sodium 40 MG DAILY 09/10 0900 AC SC Haloperidol 1 MG BID PRN 09/09 2030 AC PO Polyethylene Glycol 17 GM DAILY 09/10 0900 CAN PO Polyethylene Glycol 17 GM DAILY 09/09 194 AC PO Senna 187 MG AT BEDTIME 09/10 2100 AC PO Senna/Docusate Sodium 2 TAB DAILY PRN 09/09 194 AC PO Sodium Chloride 1,000 ML .[id number] 09/09 1545 AC 09/09 IV 1624 Sodium Chloride 1,000 ML BOLUS ONE 09/09 1115 DC 09/09 IV 09/09 1214 1138 Sodium Phosphate 1 UNIT ONCE ONE 09/09 194 DC 09/09 CT 09/09 194 2123 Valproic Acid 250 MG BID 09/09 2100 AC 09/09 PO 2312 Vital Signs & I&O Last 24 Hrs of Vitals and I&O: Vital Signs Date Time Temp Pulse Resp B/P B/P Pulse O2 O2 Flow FiO2 Mean Ox Delivery Rate 09/10 622 98.1 76 20 133/82 96 Room Air 09/09 2301 98.7 88 20 141/94 96 Room Air 09/09 1848 96 Room Air 09/09 1818 97.0 64 20 140/64 97 Room Air 09/09 1737 Room Air Room Air 09/09 1615 97.4 70 22 142/63 97 Room Air 09/09 1343 97.1 58 18 104/72 98 09/09 1139 95 Intake & Output 09/10 1600 09/10 0800 05 0000 Intake Total 500 560 Output Total 500 150 Balance 0 410 Intake, IV 500 260 Intake, Oral 0 300 Number 1 Bowel Movements Output, Urine 500 150 Patient 126 lb 126 lb Weight Weight Bed scale Bed scale Measurement Method Impression/Plan Impression/Plan Impression/Plan: eneral Appearance: Cooperative, Mild Distress, awake Skin: No Rashes, No Breakdown Skin Temp/Moisture Exam: Warm/Dry Sepsis Skin Exam (color): Normal for Ethnicity Cardiovascular: Normal S1, Normal S2, ANA Lungs: Clear to Auscultation, Normal Air Movement Abdomen: Soft, No Tenderness Neurological: Normal Speech Extremities: No Edema 72 year old female with PMH of dementia, hypertension, 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, stroke with left-sided hemiparalysis , seizures, bedridden, recurrent pilonidal cyst, status post drainage, NIDDM, now with Sepsis of urological origin 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
--- NOTE | 2017-09-10 13:00 | Event Note ---
Event Note Event Note: Patient is growing gram +ve cocci in clusters 2 out of 1 culture. She is already on unasyn. We will follow final blood cultures.
[2017-09-10 14:05] VITALS: BP 142/74
[2017-09-10 23:48] VITALS: BP 123/79
[2017-09-11 06:50] VITALS: BP 142/70
[2017-09-11 08:41] LABS: ABSOLUTE BASOPHIL COUNT 0 /CUMM (0.0-0.2); ABSOLUTE EOSINOPHIL COUNT 0.1 /CUMM (0.0-0.7); EOSINOPHIL % 0.7 % (0-5); MEAN CORPUSCULAR VOLUME 92.7 FL (81.0-99.0); RBC DISTRIBUTION WIDTH 14.2 % (11.5-14.5)
--- NOTE | 2017-09-11 09:06 | PN- Housestaff ---
Subjective Follow-up For: UTI Subjective: No overnight events. Patient denies any dysuria, abdominal pain, chest pain, shortness of breath. She has no complaints. Review of Systems Constitutional: Reports: no symptoms. EENTM: Reports: no symptoms. Cardiovascular: Reports: no symptoms. Respiratory: Reports: no symptoms. Gastrointestinal: Reports: no symptoms. Genitourinary: Reports: no symptoms. Musculoskeletal: Reports: no symptoms. Skin: Reports: no symptoms. Neurological/Psychological: Reports: no symptoms. Hematologic/Endocrine: Reports: no symptoms. Immunologic/Allergic: Reports: no symptoms. Objective Last 24 Hrs of Vital Signs/I&O Vital Signs Date Time Temp Pulse Resp B/P B/P Pulse O2 O2 Flow FiO2 Mean Ox Delivery Rate 09/11 0820 63 126/74 09/11 0650 97.6 58 18 142/70 97 09/10 2348 98.9 62 20 123/79 99 Room Air 09/10 1405 98.0 71 20 142/74 95 Room Air 09/10 1029 78 162/86 Intake & Output 09/11 1600 09/11 0800 09/11 0000 Intake Total 490 70 Output Total 225 300 Balance 265 -230 Intake, IV 250 10 Intake, Oral 240 60 Number 0 1 Bowel Movements Output, Urine 225 300 Physical Exam General Appearance: Alert, Oriented X3, Cooperative, No Acute Distress Cardiovascular: Regular Rate, Normal S1, Normal S2 Lungs: Clear to Auscultation Abdomen: Normal Bowel Sounds, Soft, No Tenderness Extremities: No Edema, Normal Pulses, No Tenderness/Swelling Current Medications: Current Medications Sig/Claudette Start time Last Medication Dose Route Stop Time Status Admin Acetaminophen 650 MG Q6P PRN 09/09 1545 AC PO Amlodipine Besylate 10 MG QAM 09/10 0900 AC 09/11 PO 0820 Ampicillin Sodium/ 3,000 MG Q6 09/09 194 AC 09/11 Sulbactam Sodium IV 0522 Sodium Chloride 100 ML Atorvastatin Calcium 40 MG QPM 09/09 2100 AC 09/10 PO 2124 Docusate Sodium 100 MG DAILY NEEDED PRN 09/10 0800 AC PO Donepezil HCl 10 MG QPM / 2100 AC 09/10 PO 2124 Enoxaparin Sodium 40 MG DAILY 09/10 09 AC 09/11 SC 0820 Haloperidol 1 MG BID PRN 09/09 2030 AC PO Polyethylene Glycol 17 GM DAILY 09/10 1943 AC 09/11 PO 0814 Senna 187 MG AT BEDTIME 09/10 2100 AC 09/10 PO 2124 Senna/Docusate Sodium 2 TAB DAILY PRN 09/09 1944 AC 09/10 PO 1030 Sodium Chloride 1,000 ML .[id number] 09/09 1545 DC 09/10 IV 1028 Valproic Acid 250 MG BID 09/09 2099 AC 09/11 PO 0829 Last 24 Hrs of Lab/Britton Results Last 24 Hrs of Labs/Mics: Laboratory Tests 09/11/17 0635: CBC w Diff Pending, WBC Pending, RBC Pending, Hgb Pending, Hct Pending, MCV Pending, MCH Pending, MCHC Pending, RDW Pending, Plt Count Pending, MPV Pending Assessment/Plan Assessment: 72 yo F with PMH of hypertension, hyperlipidemia, depression, CVA with left sided deficits, seizures was brought to the ED for evaluation of dark coloured urine. On admission, she is found to have an elevated white count and UA with high WBCs, large amount of leukocyte esterase conclusive for urinary tract infection. Assessment: 1. UTI 2. Stool impaction 3. 2.8 cm hypodensity within the uterine fundus 4. History of Hypertension 5. History of CVA with residual left sided deficits. Plan: * Continue IV Unasyn 3g q6 for UTI. Should be covered for anaerobes while awaiting cultures. * Follow up blood cultures, coagulase-negative staph * Follow up urine culture negative so far * Gen surgery recommendations noted. * She had significant stool impaction in her rectum. She was manually disimpacted last night followed with a large bowel movement after enema. She will continue to require aggressive bowel regimen. * Molecular Physicist consult as outpatient. * Diet: Regular (puree). Per family, the patient is on baby food (fruits, protein shake). * DVT Prophylaxis: SC Lovenox * Code Status: Full Code Problem List: 1. UTI (urinary tract infection) Pain Ratin Pain Location: no Pain Goal: Remain pain free Pain Plan: see a/p Tomorrow's Labs & Rationales: cbc
[2017-09-11 09:07] LABS: ABSOLUTE GRANULOCYTE CT 8.8 /CUMM (1.4-6.5); ABSOLUTE LYMPH COUNT 1.2 /CUMM (1.2-3.4); ABSOLUTE MONOCYTE COUNT 0.6 /CUMM (0.10-0.60); BASOPHIL % 0 % (0.0-2.0); HEMATOCRIT 32.9 % (37-47); MEAN CORPUSCULAR HGB 31.2 PG (27.0-31.0); MEAN CORPUSCULAR HGB CONC 33.6 G/DL (33.0-37.0); RED BLOOD CELL CT 3.55 /CUMM (4.20-5.40); WHITE BLOOD CELL COUNT 10.7 /CUMM (4.8-10.8)
[2017-09-11 09:12] LABS: PLATELET COUNT 419 /CUMM (130-400)
[2017-09-11 09:28] LABS: GRANULOCYTE % 82.1 % (42.2-75.2)
--- NOTE | 2017-09-11 09:49 | PN- Pulmonary ---
Subjective HPI/Critical Care Issues: No overnight events. Patient denies any dysuria, abdominal pain, chest pain, shortness of breath. She has no complaints. Review of Systems Constitutional: Reports: no symptoms. EENTM: Reports: no symptoms. Cardiovascular: Reports: no symptoms. Respiratory: Reports: no symptoms. Gastrointestinal: Reports: no symptoms. Genitourinary: Reports: no symptoms. Musculoskeletal: Reports: no symptoms. Skin: Reports: no symptoms. Neurological/Psychological: Reports: no symptoms. Hematologic/Endocrine: Reports: no symptoms. Immunologic/Allergic: Reports: no symptoms. Objective Current Medications: Current Medications Sig/Claudette Start time Last Medication Dose Route Stop Time Status Admin Acetaminophen 650 MG Q6P PRN 09/09 1545 AC PO Amlodipine Besylate 10 MG QAM 09/10 0900 AC 09/11 PO 0820 Ampicillin Sodium/ 3,000 MG Q6 09/09 194 AC 09/11 Sulbactam Sodium IV 0522 Sodium Chloride 100 ML Atorvastatin Calcium 40 MG QPM 09/09 2100 AC 09/10 PO 2124 Docusate Sodium 100 MG DAILY NEEDED PRN 09/10 0800 AC PO Donepezil HCl 10 MG QPM / 2100 AC 09/10 PO 2124 Enoxaparin Sodium 40 MG DAILY 09/10 0900 AC 09/11 SC 0820 Haloperidol 1 MG BID PRN 09/09 2030 AC PO Polyethylene Glycol 17 GM DAILY 09/09 194 AC 09/11 PO 0814 Senna 187 MG AT BEDTIME 09/10 2100 AC 09/10 PO 2124 Senna/Docusate Sodium 2 TAB DAILY PRN 09/09 194 AC 09/10 PO 1030 Sodium Chloride 1,000 ML .[id number] 09/09 1545 DC 09/10 IV 1028 Valproic Acid 250 MG BID 09/09 2100 AC 09/11 PO 0829 Vital Signs & I&O Last 24 Hrs of Vitals and I&O: Vital Signs Date Time Temp Pulse Resp B/P B/P Pulse O2 O2 Flow FiO2 Mean Ox Delivery Rate 09/11 0820 63 126/74 / 0650 97.6 58 18 142/70 97 / 2348 98.9 62 20 123/79 99 Room Air 09/10 1405 98.0 71 20 142/74 95 Room Air 09/10 1029 78 162/86 Intake & Output 09/11 1600 05/06 0800 05/06 0000 Intake Total 490 70 Output Total 225 300 Balance 265 -230 Intake, IV 250 10 Intake, Oral 240 60 Number 0 1 Bowel Movements Output, Urine 225 300 Impression/Plan Impression/Plan Impression/Plan: IMPRESSION: 1. Extremely limited exam. 2. Redemonstrated is abnormal air within the uterine cavity. On CT scan, air within the endometrial cavity and abnormal thickening of the endometrial stripe versus large amount of endometrial free fluid was also demonstrated. Findings are nonspecific but raise the suspicion of pelvic inflammatory disease/endometritis. Alternatively, there may be subtle fistulous connection with the abnormally gas and fecal distended rectum and the uterus. Close clinical correlation is requested. 3. Ovaries not seen. 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, stroke with left-sided hemiparalysis , seizures, bedridden, recurrent pilonidal cyst, status post drainage, NIDDM, now with Sepsis of urological origin vs stercocolitis now resolved 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
[2017-09-11 14:53] VITALS: BP 122/56
[2017-09-11 14:54] VITALS: BP 122/56
[2017-09-11 22:04] VITALS: BP 164/80
[2017-09-12 05:57] VITALS: BP 138/97
--- NOTE | 2017-09-12 07:02 | PN- Housestaff ---
Subjective Follow-up For: UTI ?rectovaginal fistula Complaints: no complaints Subjective: Patient seen and examined at bedside. No overnight events. At baseline patient has dementia. She is alert, responsive somewhat to verbal commands. Denies pain/chest pain/shortness of breath/abdominal pain. Review of Systems Constitutional: Reports: no symptoms, see HPI. Objective Last 24 Hrs of Vital Signs/I&O Vital Signs Date Time Temp Pulse Resp B/P B/P Pulse O2 O2 Flow FiO2 Mean Ox Delivery Rate 09/12 825 70 142/62 09/12 0557 98.2 72 20 138/97 95 / 2204 98.7 79 20 164/80 97 Room Air Intake & Output 09/12 1600 09/12 0809/12 0000 Intake Total 640 610 Output Total 450 100 200 Balance 190 -100 410 Intake, IV 400 10 Intake, Oral 240 600 Number 1 Bowel Movements Output, Urine 450 100 200 Physical Exam General Appearance: Alert, Oriented X3, Cooperative, No Acute Distress Cardiovascular: Regular Rate, Normal S1, Normal S2, No Murmurs Lungs: Clear to Auscultation Abdomen: Soft, No Tenderness, No Hepatospenomegaly Neurological: Strength at 5/5 X4 Ext, Normal Tone, Sensation Intact, Cranial Nerves 3-12 NL Current Medications: Current Medications Sig/Claudette Start time Last Medication Dose Route Stop Time Status Admin Acetaminophen 650 MG Q6P PRN 09/09 1545 AC PO Amlodipine Besylate 10 MG QAM 09/10 0900 AC 09/12 PO 0826 Amoxicillin/ 875 MG Q12 09/11 2099 AC 09/12 Clavulanate Potassium PO 0820 Atorvastatin Calcium 40 MG QPM 09/09 2100 AC 09/11 PO 2148 Dextrose/Sodium 1,000 ML Q20H / 0800 AC 09/12 Chloride IV 0817 Docusate Sodium 100 MG DAILY NEEDED PRN 09/10 0800 AC PO Donepezil HCl 10 MG QPM 09/09 2100 AC 09/11 PO 214 Enoxaparin Sodium 40 MG DAILY 09/10 0900 AC 09/12 SC 0823 Haloperidol 1 MG BID PRN 09/09 2030 AC PO Polyethylene Glycol 17 GM DAILY 09/09 1944 AC 09/12 PO 0823 Senna 187 MG AT BEDTIME 09/10 2099 AC 09/11 PO 214 Senna/Docusate Sodium 2 TAB DAILY PRN 09/09 1944 AC 09/10 PO 1030 Valproic Acid 250 MG BID 09/09 2100 AC 09/12 PO 0820 Last 24 Hrs of Lab/Britton Results Last 24 Hrs of Labs/Mics: Laboratory Tests 09/12/17 0910: CBC w Diff NO MAN DIFF REQ, RBC 3.82 L, MCV 93.8, MCH 31.2 H, MCHC 33.3, RDW 13.9, MPV 7.8, Gran % 82.6 H, Lymphocytes % 10.8 L, Monocytes % 6.0, Eosinophils % 0.4, Basophils % 0.2, Absolute Granulocytes 11.2 H, Absolute Lymphocytes 1.5, Absolute Monocytes 0.8 H, Absolute Eosinophils 0.1, Absolute Basophils 0 Assessment/Plan Assessment: 72 yo F with PMH of hypertension, hyperlipidemia, depression, CVA with left sided deficits, seizures was brought to the ED for evaluation of dark coloured urine. On admission, she is found to have an elevated white count and UA with high WBCs, large amount of leukocyte esterase conclusive for urinary tract infection. Assessment: 1. UTI-on Augmentin 2. Stool impaction -had a bowel movement 3. 2.8 cm hypodensity within the uterine fundus-rule out rectovaginal fistula 4. History of Hypertension 5. History of CVA with residual left sided deficits. Plan: * Continue Augmentin for UTI. Urine cultures so far negative. * Follow up blood cultures, coagulase-negative staph-likely contaminant. * Awaiting Gen surgery recommendations noted. * She had significant stool impaction in her rectum. She was manually disimpacted last night followed with a large bowel movement after enema. She will continue to require aggressive bowel regimen. Patient is on Brasher. Decreased by mouth intake. Urine output a 625. Patient started on D5 half- normal saline at 50 mL per hour in view of decreased by mouth intake. 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 Patient is scheduled for MRA with and without gadolinium to rule out any rectovaginal fistula. Patient seen by urology who thinks there is no bladder fistula present. * Diet: Regular (puree). Per family, the patient is on baby food (fruits, protein shake). Nutrition consult. * DVT Prophylaxis: SC Lovenox * Code Status: Full Code Problem List: 1. UTI (urinary tract infection) Pain Ratin Pain Location: none Pain Goal: Remain pain free Pain Plan: tylenol Tomorrow's Labs & Rationales: gael garcíap
--- NOTE | 2017-09-12 07:51 | Cons- Urology ---
General Information and HPI Consulting Request Date of Consult: 09/11/17 Requested By: Catalino Saldivar MD Reason for Consult: fistula? Source of Information: patient, old records, resident md Exam Limitations: unable to give history, poor historian History of Present Illness: 72 yr old with question of gas in bladder on ultrasound: NOT seen on CT scan. by report:Pt. with PMH of hypertension, hyperlipidemia, depression, CVA with left sided deficits, seizures was brought to the ED for evaluation of UTI. History has been obtained from the family as the patient has dementia at baseline and unable to give any history. The states that for the past month or so the patient has been voiding very little on her own. She has been having greenish-brown discharge in her urine with each void. Today the visiting nurse came and obtained a urine sample via straight cath and drained dark urine. The nurse requested the family members to bring the patient to the ED for further tests. The states that the patient has been bedridden for the past year. Her diet is comprised of baby food (water, fruits and protein shakes) . Her review of system per family is negative. Of note, the mentions that the patient had a fever of 101.2 last week for which he gave the patient some tylenol which helped resolve her fever. No chills, shortness of breath, sore throat, cough, chest pain or any other symptoms reported Allergies/Medications Allergies: Coded Allergies: NO KNOWN ALLERGIES (NONE 09/11/17) Home Med List: Albuterol Sulfate 2.5 MG/3 ML (0.083 %) VIAL.NEB 1 Vial INH/MELANIE AD PRN RESPIRATORY (Reported) Amlodipine Besylate 10 MG TABLET 1 TAB PO QAM HEART/BP (Reported) Atorvastatin Calcium (Lipitor) 40 MG TABLET 1 TAB PO QPM CHOLESTEROL ( Reported) Cholecalciferol (Vitamin D3) (Vitamin D3) 400 UNIT TABLET 1 TAB PO QAM SUPPLEMENT (Reported) Clonazepam (Klonopin) 0.5 MG TABLET 1 TAB PO BID ANXIETY (Reported) Cyanocobalamin (Vitamin B-12) 1,000 MCG TABLET 1 TAB PO DAILY SUPPLEMENT ( Reported) Donepezil HCl (Aricept) 10 MG TABLET 1 TAB PO QPM DEMENTIA (Reported) Fluticasone Propionate 50 MCG/ACTUATION SPRAY.SUSP 2 SPRAY BRANDON BID PRN nasal congestion do not use it for more then 5 days straight Haloperidol 1 MG TABLET 1 TAB PO BID AGITATION (Reported) Linaclotide (Linzess) 145 MCG CAPSULE 1 CAP PO DAILY PRN GI (Reported) Tramadol HCl 50 MG TABLET 1 TAB PO PRN PAIN (Reported) Valproic Acid (Depakene) 250 MG/5 ML SOLUTION 5 ML PO BID SEIZURES (Reported) Current Medications: Current Medications Sig/Claudette Start time Last Medication Dose Route Stop Time Status Admin Acetaminophen 650 MG Q6P PRN 09/09 1545 AC PO Amlodipine Besylate 10 MG QAM 09/10 0900 AC 09/11 PO 0820 Amoxicillin/ 875 MG Q12 09/11 2099 AC 09/11 Clavulanate Potassium PO 2148 Ampicillin Sodium/ 3,000 MG Q6 09/09 194 DC 09/11 Sulbactam Sodium IV 0522 Sodium Chloride 100 ML Atorvastatin Calcium 40 MG QPM 09/09 2099 AC 09/11 PO 2148 Docusate Sodium 100 MG DAILY NEEDED PRN 09/10 0800 AC PO Donepezil HCl 10 MG QPM 09/09 2099 AC 09/11 PO 2148 Enoxaparin Sodium 40 MG DAILY 09/10 0900 AC 09/11 SC 0820 Haloperidol 1 MG BID PRN 09/09 2030 AC PO Polyethylene Glycol 17 GM DAILY 09/09 194 AC 09/11 PO 0814 Senna 187 MG AT BEDTIME 09/10 2099 AC 09/11 PO 2148 Senna/Docusate Sodium 2 TAB DAILY PRN 09/09 194 AC 09/10 PO 1030 Valproic Acid 250 MG BID 09/09 2099 AC 09/11 PO 2149 Past History Medical History Neurological: CVA, dementia, seizure, CVA, LEFT HEMIPARESIS EENT: NONE Cardiovascular: hypertension, hyperlipidemia Respiratory: NONE Gastrointestinal: constipation Hepatic: NONE Renal: NONE Musculoskeletal: NONE Psychiatric: anxiety, depression Endocrine: NONE Blood Disorders: NONE Cancer(s): NONE RECREATION DIRECTOR/Reproductive: NONE Surgical History Pertinent Surgical History: non-contributory Family History Relations & Conditions If Any: BROTHER (pilonidal abscess). Psychosocial History Services at Home: Home Health Aide, Nursing Smoking Status: Unknown If Ever Smoked Exam & Diagnostic Data Vital Signs and I&O Vital Signs Date Time Temp Pulse Resp B/P B/P Pulse O2 O2 Flow FiO2 Mean Ox Delivery Rate 05/07 0557 98.2 72 20 138/97 95 05/06 2204 98.7 79 20 164/80 97 Room Air / 1454 97.3 68 18 122/56 97 05/06 1453 97.3 68 18 122/56 97 05/06 0820 63 126/74 Intake & Output 05/07 0800 05/07 0000 05/06 1600 05/06 0800 05/06 0000 05/05 1600 Intake Total 610 320 490 70 100 Output Total 100 200 400 225 300 Balance -100 410 -80 265 -230 100 Intake, IV 10 250 10 Intake, Oral 600 320 240 60 100 Number 1 0 1 2 Bowel Movements Output, Urine 100 200 400 225 300 Patient 126 lb Weight Physical Exam General Appearance: well developed/nourished, contractures Head: atraumatic Eyes: Bilateral: normal appearance. Respiratory: normal breath sounds Cardiovascular: regular rate/rhythm Gastrointestinal: normal bowel sounds, soft Back: normal inspection Neurologic/Psych: depressed affect (responds only yes/no) Imaging Results: PATIENT: VERONICA TRENT PRESENT AGE: 72 PATIENT ACCOUNT NO: [id number] : 44 LOCATION: [facility] ORDERING PHYSICIAN: Wyatt PEÑA SERVICE DATE: 09/09/17 EXAM TYPE: CAT - CT ABD & PELVIS W/O IV CONTRAS EXAMINATION: CT ABDOMEN AND PELVIS WITHOUT CONTRAST CLINICAL INFORMATION: Diffuse abdominal pain. UTI. COMPARISON: CT of the abdomen and pelvis 07/23/2013. TECHNIQUE: Multidetector volumetric imaging was performed from the superior aspect of the liver through the pubic symphysis. Sagittal and coronal reformatted images were obtained on the technologist's workstation. DLP: 363 mGy-cm FINDINGS: LUNG BASES: Trace subsegmental atelectasis at the left base. LIVER, GALLBLADDER, AND BILIARY TREE: The liver is normal in size, shape, and attenuation. No focal hepatic lesion or biliary ductal dilatation is present. The gallbladder is unremarkable with no evidence of radiopaque gallstones, gallbladder wall thickening, or obvious pericholecystic inflammatory changes. PANCREAS: Unremarkable. SPLEEN: Unremarkable. ADRENAL GLANDS: Unremarkable. KIDNEYS AND URETERS: Vascular calcifications are present bilaterally. No nephrolithiasis, mass, or hydroureteronephrosis. There is minimal fullness in the right pelvis is new since 07/23/2013. There is a subcentimeter exophytic cyst arising from the upper pole of the right kidney. BLADDER: Only partly distended but within normal limits. GASTROINTESTINAL TRACT: The rectal vault is markedly distended but there is no perirectal inflammatory change to suggest stercoral colitis. The appendix is normal. There is a small hiatal hernia. The stomach appears normal. The small bowel is nondistended. ABDOMINAL WALL: No significant hernia is appreciated. LYMPH NODES: Normal. VASCULAR: Atheromatous changes in the abdominal aorta and its branch vessels. PELVIC VISCERA: There is a new 2.8 cm hypodense lesion within the uterine fundus which is new since 11/09/2013. A small amount of nondependent air is also present within the uterine body and at the fundus. There is no evidence of adnexal mass. OSSEOUS STRUCTURES: There is grade 1 anterolisthesis of L4 on L5 related to advanced degenerative facet arthropathy. There is no acute fracture or destructive lesion within the osseous structures. IMPRESSION: - The rectal vault is markedly distended with stool compatible with fecal impaction. No evidence of stercoral colitis or bowel obstruction. - No nephrolithiasis or hydronephrosis. There is mild fullness of the right renal pelvis. - There is new 2.8 cm hypodensity within the uterine fundus in addition to small amount of air in the uterine body and fundus. This finding is of uncertain etiology. Correlation for any prior intervention is recommended. There are no findings to suggest fistulization. A pelvic exam may be helpful. PELVIC US: EXAM TYPE: US - US-PELVIC MASS DIAG EXAMINATION: ULTRASOUND OF THE PELVIS CLINICAL INFORMATION: Hypodensity seen on pelvic CT scan. Presumptive diagnosis of uterine mass/fibroid. COMPARISON: CT scan of the abdomen and pelvis dated 09/09/2017. TECHNIQUE: Transabdominal pelvic ultrasound. FINDINGS: Evaluation is extremely limited due to a decompressed bladder (patient is incontinent and could therefore not be prepped for the transabdominal exam). Due to the high location of the uterus and the largely distended and fecal impacted rectum, transvaginal exam was not felt to be useful and was not attempted in this patient, who also appears to be unable to consent for the transvaginal procedure. Uterus: The uterus is anteverted and elongated, measuring 7.5 x 3.7 x 4.7 cm. Myometrial detail is completely obscured by extensive air within the uterine cavity, which produces a linear echogenic line with posterior dirty shadowing. Ovaries: Not seen. Other: Limited assessment reveals no definite adnexal mass or free fluid collection. IMPRESSION: 1. Extremely limited exam. 2. Redemonstrated is abnormal air within the uterine cavity. On CT scan, air within the endometrial cavity and abnormal thickening of the endometrial stripe versus large amount of endometrial free fluid was also demonstrated. Findings are nonspecific but raise the suspicion of pelvic inflammatory disease/endometritis. Alternatively, there may be subtle fistulous connection with the abnormally gas and fecal distended rectum and the uterus. Close clinical correlation is requested. 3. Ovaries not seen. Assessment/Plan Assessment/Plan pt with air in UTERUS vs bladder on US: not seen in bladder: recommend proceed with MRI with david, and contact RECREATION DIRECTOR Copies To: Alexandre Forbes MD Consult Acknowledgment - Thank you for your consult request. Attending MD Review Statement Attending Statement Attending MD Statement: examined this patient, discuss w/resident/PA/MACHINE SET UP TECHNICIAN Attending Assessment/Plan: Pt with no evidence of bladder fistula: primary problem for is mild hydronephrosis likely caused by LARGE stool impaction-recommend treatment for impaction: Question of fistula due to air in uterus on pelvic US-would recommend proceeding with MRI and contact RECREATION DIRECTOR for consult.
[2017-09-12 09:31] LABS: ABSOLUTE BASOPHIL COUNT 0 /CUMM (0.0-0.2); ABSOLUTE EOSINOPHIL COUNT 0.1 /CUMM (0.0-0.7); ABSOLUTE GRANULOCYTE CT 11.2 /CUMM (1.4-6.5); ABSOLUTE LYMPH COUNT 1.5 /CUMM (1.2-3.4); ABSOLUTE MONOCYTE COUNT 0.8 /CUMM (0.10-0.60); BASOPHIL % 0.2 % (0.0-2.0); EOSINOPHIL % 0.4 % (0-5); GRANULOCYTE % 82.6 % (42.2-75.2); HEMATOCRIT 35.8 % (37-47); MEAN CORPUSCULAR HGB 31.2 PG (27.0-31.0); MEAN CORPUSCULAR HGB CONC 33.3 G/DL (33.0-37.0); MEAN CORPUSCULAR VOLUME 93.8 FL (81.0-99.0); MEAN PLATELET VOLUME 7.8 FL (7.4-10.4); PLATELET COUNT 466 /CUMM (130-400); RBC DISTRIBUTION WIDTH 13.9 % (11.5-14.5); RED BLOOD CELL CT 3.82 /CUMM (4.20-5.40); WHITE BLOOD CELL COUNT 13.6 /CUMM (4.8-10.8)
--- NOTE | 2017-09-12 11:12 | PN- Att Addend ---
Attending Addendum Attending Brief Note Events over the weekend noted Vital signs are stable no fever but no major changes on physical patient would have more specific x-rays done today see if the patient has a fistula in the vaginal area a STRUCTURAL METAL FABRICATOR APPRENTICE consultation. Intake & Output 09/12 Intake Total 610 810 70 600 560 Output Total 100 200 625 300 500 150 Balance -100 410 185 -230 100 410 Intake, IV 10 250 10 500 260 Intake, Oral 600 560 60 100 300 Number 1 0 1 2 1 Bowel Movements Output, Urine 100 200 625 300 500 150 Patient 126 lb 126 lb Weight Weight Bed scale Bed scale Measurement Method Current Medications Sig/Claudette Start time Last Medication Dose Route Stop Time Status Admin Acetaminophen 650 MG Q6P PRN 09/09 1545 AC PO Amlodipine Besylate 10 MG QAM 09/10 0900 AC 09/12 PO 0826 Amoxicillin/ 875 MG Q12 09/11 2099 AC 09/12 Clavulanate Potassium PO 0820 Atorvastatin Calcium 40 MG QPM 09/09 2099 AC 09/11 PO 2148 Dextrose/Sodium 1,000 ML Q20H 09/12 08 AC 09/12 Chloride IV 0817 Docusate Sodium 100 MG DAILY NEEDED PRN 09/10 08 AC PO Donepezil HCl 10 MG QPM 09/09 2099 AC 09/11 PO 2148 Enoxaparin Sodium 40 MG DAILY 09/10 09 AC 09/12 SC 0823 Haloperidol 1 MG BID PRN 09/09 2030 AC PO Polyethylene Glycol 17 GM DAILY 09/09 194 AC 09/12 PO 0823 Senna 187 MG AT BEDTIME 09/10 2099 AC 09/11 PO 2148 Senna/Docusate Sodium 2 TAB DAILY PRN 09/09 1944 AC 09/10 PO 1030 Valproic Acid 250 MG BID 09/09 2099 AC 09/12 PO 0820 Laboratory Tests 09/12/17 0910: CBC w Diff NO MAN DIFF REQ, RBC 3.82 L, MCV 93.8, MCH 31.2 H, MCHC 33.3, RDW 13.9, MPV 7.8, Gran % 82.6 H, Lymphocytes % 10.8 L, Monocytes % 6.0, Eosinophils % 0.4, Basophils % 0.2, Absolute Granulocytes 11.2 H, Absolute Lymphocytes 1.5, Absolute Monocytes 0.8 H, Absolute Eosinophils 0.1, Absolute Basophils 0 09/11/17 0635: CBC w Diff NO MAN DIFF REQ, RBC 3.55 L, MCV 92.7, MCH 31.2 H, MCHC 33.6, RDW 14.2, MPV 8.0, Gran % 82.1 H, Lymphocytes % 11.5 L, Monocytes % 5.7, Eosinophils % 0.7, Basophils % 0, Absolute Granulocytes 8.8 H, Absolute Lymphocytes 1.2, Absolute Monocytes 0.6, Absolute Eosinophils 0.1, Absolute Basophils 0 09/10/17 0650: Anion Gap 13, Estimated GFR > 60, BUN/Creatinine Ratio 11.4, CBC w Diff NO MAN DIFF REQ, RBC 3.26 L, MCV 94.1, MCH 31.6 H, MCHC 33.6, RDW 14.4, MPV 8.6, Gran % 82.2 H, Lymphocytes % 10.0 L, Monocytes % 7.1, Eosinophils % 0.6, Basophils % 0.1, Absolute Granulocytes 8.0 H, Absolute Lymphocytes 1.0 L, Absolute Monocytes 0.7 H, Absolute Eosinophils 0.1, Absolute Basophils 0 09/09/17 180: Lactic Acid 1.3 09/09/17 1253: Anion Gap 11, Estimated GFR > 60, BUN/Creatinine Ratio 18.6, Glucose 151 H, Lactic Acid 1.6, Calcium 7.9 L, Total Bilirubin 0.5, AST 13 L, ALT 11, Alkaline Phosphatase 109, Troponin I < 0.01, Total Protein 7.2, Albumin 3.1 L, Globulin 4.1, Albumin/Globulin Ratio 0.8 L Microbiology 09/10 1807 BLOOD: Blood Culture - COMP STAPH COAGULASE NEGATIVE 09/09 1525 BLOOD: Blood Culture - CAN Cancelled: SPECIMEN NOT RECEIVED IN LABORATORY Microbiology 09/10 1807 BLOOD: Blood Culture - COMP STAPH COAGULASE NEGATIVE 09/09 1525 BLOOD: Blood Culture - CAN Cancelled: SPECIMEN NOT RECEIVED IN LABORATORY Vital Signs Date Time Temp Pulse Resp B/P B/P Pulse O2 O2 Flow FiO2 Mean Ox Delivery Rate 09/12 0826 70 142/62 09/12 0557 98.2 72 20 138/97 95 09/11 2204 98.7 79 20 164/80 97 Room Air 09/11 1454 97.3 68 18 122/56 97 / 1453 97.3 68 18 122/56 97
--- NOTE | 2017-09-12 14:33 | MRI REPORT ---
EXAMINATION: MR PELVIS WITHOUT AND WITH CONTRAST CLINICAL INFORMATION: Ultrasound showed air in the uterine fundus. Question rectovaginal fistula. COMPARISON: Ultrasound of the pelvis dated 09/09/2017. CT scan of the abdomen and pelvis dated 09/09/2017. TECHNIQUE: MRI scan of the pelvis was performed using multiple imaging sequences and imaging planes. 6 mL of intravenous gadolinium (Gadavist) was given and postcontrast enhanced evaluation was performed. FINDINGS: Uterus: Uterus is atrophic (4.7 x 2.1 x 3.3 cm) and deviated towards the right side. The uterus is retroverted on today's exam. As seen on the CT scan, the vagina as well as the endometrial cavity is filled with abnormal fluid. There is also a large locule of air seen in the uterine fundus. The uterus is otherwise unremarkable. No definite fistulous tract to the rectum can be confirmed on these images, though there is loss of the fat plane between the rectum and the vagina on several of the images. Ovaries: Both ovaries are atrophic with the left ovary measuring 1.7 x 0.9 x 2.0 cm and the right ovary 1.5 x 1.3 x 1.0 cm. No ovarian mass. No significant free fluid in the pelvis. Bowel loops: Again seen is a capacious rectum filled with fecal material. The degree of rectal distention has diminished when compared to the prior exam. Moderate sigmoid colonic diverticulosis is seen with no evidence of acute diverticulitis. Included small and large bowel loops are otherwise unremarkable. Lymphovascular structures: Unremarkable. No adenopathy or free fluid collection. Bones: Mild degenerative disc disease at L4-L5. No suspicious bone findings. Other: There is some edema seen in the gluteal muscles and adductor muscles bilaterally. IMPRESSION: 1. As seen on the CT scan, there is abnormal fluid filling the vagina and atrophic uterus. Small locule of air is also seen in the uterine fundus. Findings are similar to the CT scan. There is also continued loss of the fat plane between the rectum and the vagina, though no definite fistulous connection can be confirmed. 2. Ovaries bilaterally atrophic and unremarkable. 3. Rectal fecal impaction has improved. Sigmoid colonic diverticulosis is seen. 4. Mild edema in the gluteal muscles and adductor muscles.
[2017-09-12 15:27] VITALS: BP 138/62
[2017-09-12 23:08] VITALS: BP 159/81
[2017-09-13 06:51] VITALS: BP 147/75
--- NOTE | 2017-09-13 07:08 | PN- Housestaff ---
Subjective Follow-up For: UTI Stool Impaction with ? Rectovaginal fistula Complaints: no complaints Subjective: Patient seen and examined bedside. No overnight events. At baseline patient has dementia. She is alert, oriented 1. Able to follow some of the, as. Denies any pain or shortness of breath. Review of Systems Constitutional: Reports: no symptoms, see HPI. Objective Last 24 Hrs of Vital Signs/I&O Vital Signs Date Time Temp Pulse Resp B/P B/P Pulse O2 O2 Flow FiO2 Mean Ox Delivery Rate 09/14 815 147/75 / 0651 98.1 67 20 147/75 100 Room Air 09/12 2308 98.2 83 20 159/81 99 Room Air 09/12 1527 98.0 68 20 138/62 96 Room Air Intake & Output 09/13 1600 09/13 0809/13 0000 Intake Total 400 270 Output Total 600 950 Balance -200 -680 Intake, IV 400 150 Intake, Oral 120 Output, Urine 600 950 Physical Exam General Appearance: Alert, Oriented X3, Cooperative, No Acute Distress Cardiovascular: Normal S1, Normal S2, No Murmurs Lungs: Clear to Auscultation Abdomen: Soft, No Tenderness, No Hepatospenomegaly Neurological: Normal Speech, Strength at 5/5 X4 Ext, Normal Tone, Sensation Intact Extremities: No Edema, Normal Pulses Current Medications: Current Medications Sig/Claudette Start time Last Medication Dose Route Stop Time Status Admin Acetaminophen 650 MG Q6P PRN 09/09 1545 AC PO Amlodipine Besylate 10 MG QAM 09/10 09 AC 09/13 PO 0816 Amoxicillin/ 875 MG Q12 09/11 2099 AC 09/13 Clavulanate Potassium PO 08 Atorvastatin Calcium 40 MG QPM 09/09 2100 AC 09/12 PO 205 Dextrose/Sodium 1,000 ML Q20H 09/12 0800 AC 09/13 Chloride IV 0314 Docusate Sodium 100 MG DAILY NEEDED PRN 09/10 0800 AC PO Donepezil HCl 10 MG QPM 09/09 2099 AC 09/12 PO 205 Enoxaparin Sodium 40 MG DAILY 09/10 0900 AC 09/13 SC 0817 Haloperidol 1 MG BID PRN 09/09 2030 AC PO Patient Medication 1 ED ONE ONE 09/12 1545 DC Teaching ED 09/12 1546 Polyethylene Glycol 17 GM DAILY 05/1943 AC 09/13 PO 0817 Potassium Chloride 40 MEQ ONCE ONE 09/13 829 DC PO 09/13 830 Senna 187 MG AT BEDTIME 09/10 2099 AC 09/12 PO 2051 Senna/Docusate Sodium 2 TAB DAILY PRN 09/09 1944 AC 09/10 PO 103 Valproic Acid 250 MG BID 09/09 2099 AC 09/13 PO 816 Last 24 Hrs of Lab/Britton Results Last 24 Hrs of Labs/Mics: Laboratory Tests 09/13/17 0845: Anion Gap 18 H, Estimated GFR > 60, BUN/Creatinine Ratio 11.7, CBC w Diff NO MAN DIFF REQ, RBC 4.23, MCV 93.3, MCH 30.4, MCHC 32.6 L, RDW 13.9, MPV 7.8, Gran % 82.0 H, Lymphocytes % 11.8 L, Monocytes % 5.0, Eosinophils % 1.0, Basophils % 0.2, Absolute Granulocytes 11.8 H, Absolute Lymphocytes 1.7, Absolute Monocytes 0.7 H, Absolute Eosinophils 0.1, Absolute Basophils 0 Assessment/Plan Assessment: 72 yo F with PMH of hypertension, hyperlipidemia, depression, CVA with left sided deficits, seizures was brought to the ED for evaluation of dark coloured urine. On admission, she is found to have an elevated white count and UA with high WBCs, large amount of leukocyte esterase conclusive for urinary tract infection. Assessment: 1. UTI-on Augmentin 2. Stool impaction -had a bowel movement 3. 2.8 cm hypodensity within the uterine fundus-rule out rectovaginal fistula 4. History of Hypertension 5. History of CVA with residual left sided deficits. Plan: * Continue Augmentin for UTI. Urine cultures so far negative. Today WBC count 14.3 * Follow up blood cultures, coagulase-negative staph-likely contaminant. * Awaiting Gen surgery /MAXILLOFACIAL PROSTHODONTIST recommendations noted. * She had significant stool impaction in her rectum. She was manually disimpacted followed with a large bowel movement after enema. She will continue to require aggressive bowel regimen. Patient is on Brasher. Decreased by mouth intake. Urine output a 590. Patient started on D5 half-normal saline at 50 mL per hour in view of decreased by mouth intake. * Group Burner Machine consult. Patient MRI findings were similar to the CAT scan showing air in the uterine fundus. This was discussed with the on-call MAXILLOFACIAL PROSTHODONTIST yesterday who will see her today. Patient seen by urology who thinks there is no bladder fistula present. The same information was relayed to the patient's . * Diet: Regular (puree). Per family, the patient is on baby food (fruits, protein shake). Nutrition consult. * DVT Prophylaxis: SC Lovenox * Code Status: Full Code Problem List: 1. UTI (urinary tract infection) 2. Recto-vaginal fistula Pain Ratin Pain Location: none Pain Goal: Remain pain free Pain Plan: tylenol Tomorrow's Labs & Rationales: cbc
[2017-09-13 09:00] LABS: ABSOLUTE BASOPHIL COUNT 0 /CUMM (0.0-0.2); ABSOLUTE EOSINOPHIL COUNT 0.1 /CUMM (0.0-0.7); ABSOLUTE GRANULOCYTE CT 11.8 /CUMM (1.4-6.5); ABSOLUTE LYMPH COUNT 1.7 /CUMM (1.2-3.4); ABSOLUTE MONOCYTE COUNT 0.7 /CUMM (0.10-0.60); BASOPHIL % 0.2 % (0.0-2.0); HEMATOCRIT 39.5 % (37-47); MEAN CORPUSCULAR HGB 30.4 PG (27.0-31.0); MEAN CORPUSCULAR HGB CONC 32.6 G/DL (33.0-37.0); MEAN CORPUSCULAR VOLUME 93.3 FL (81.0-99.0); MEAN PLATELET VOLUME 7.8 FL (7.4-10.4); PLATELET COUNT 529 /CUMM (130-400); RBC DISTRIBUTION WIDTH 13.9 % (11.5-14.5); RED BLOOD CELL CT 4.23 /CUMM (4.20-5.40); WHITE BLOOD CELL COUNT 14.3 /CUMM (4.8-10.8)
--- NOTE | 2017-09-13 10:15 | PN- Att Addend ---
Attending Addendum Attending Brief Note No new issues vital signs are stable no fever, no changes on physical Patient had her MRI yesterday shows same abnormalities as a CAT scan, no definite fistula will have IT NETWORK ENGINEER consult today and after that will decide whether this has to be done and disposition plans. Her white count is 14,300 today continue antibiotic therapy. Intake & Output 09/13 0400 09/12 0400 09/11 1600 09/11 0400 Intake Total 400 270 640 610 810 70 Output Total 600 950 550 200 625 300 Balance -200 -680 90 410 185 -230 Intake, IV 400 150 400 10 250 10 Intake, Oral 120 240 600 560 60 Number 1 0 1 Bowel Movements Output, Urine 600 950 550 200 625 300 Current Medications Sig/Claudette Start time Last Medication Dose Route Stop Time Status Admin Acetaminophen 650 MG Q6P PRN 09/09 1545 AC PO Amlodipine Besylate 10 MG QAM 09/10 0900 AC 09/13 PO 0816 Amoxicillin/ 875 MG Q12 09/11 2099 AC 09/13 Clavulanate Potassium PO 08 Atorvastatin Calcium 40 MG QPM 09/09 2099 AC 09/12 PO 205 Dextrose/Sodium 1,000 ML Q20H 09/12 08 AC 09/13 Chloride IV 0314 Docusate Sodium 100 MG DAILY NEEDED PRN 09/10 0800 AC PO Donepezil HCl 10 MG QPM 09/09 2099 AC 09/12 PO 205 Enoxaparin Sodium 40 MG DAILY 09/10 0900 AC 09/13 SC 0817 Haloperidol 1 MG BID PRN 09/09 2030 AC PO Patient Medication 1 ED ONE ONE 09/12 1545 TN Teaching ED 09/12 1546 Polyethylene Glycol 17 GM DAILY 09/10 1943 AC 09/13 PO 0817 Potassium Chloride 40 MEQ ONCE ONE 09/13 0830 TN PO 09/13 0831 Senna 187 MG AT BEDTIME 09/10 2099 AC 09/12 PO 205 Senna/Docusate Sodium 2 TAB DAILY PRN 09/09 1944 AC 09/10 PO 1030 Valproic Acid 250 MG BID 09/09 2099 AC 09/13 PO 0817 Laboratory Tests 09/13/17 0845: Anion Gap 18 H, Estimated GFR > 60, BUN/Creatinine Ratio 11.7, CBC w Diff NO MAN DIFF REQ, RBC 4.23, MCV 93.3, MCH 30.4, MCHC 32.6 L, RDW 13.9, MPV 7.8, Gran % 82.0 H, Lymphocytes % 11.8 L, Monocytes % 5.0, Eosinophils % 1.0, Basophils % 0.2, Absolute Granulocytes 11.8 H, Absolute Lymphocytes 1.7, Absolute Monocytes 0.7 H, Absolute Eosinophils 0.1, Absolute Basophils 0 09/12/17 0910: CBC w Diff NO MAN DIFF REQ, RBC 3.82 L, MCV 93.8, MCH 31.2 H, MCHC 33.3, RDW 13.9, MPV 7.8, Gran % 82.6 H, Lymphocytes % 10.8 L, Monocytes % 6.0, Eosinophils % 0.4, Basophils % 0.2, Absolute Granulocytes 11.2 H, Absolute Lymphocytes 1.5, Absolute Monocytes 0.8 H, Absolute Eosinophils 0.1, Absolute Basophils 0 09/11/17 0635: CBC w Diff NO MAN DIFF REQ, RBC 3.55 L, MCV 92.7, MCH 31.2 H, MCHC 33.6, RDW 14.2, MPV 8.0, Gran % 82.1 H, Lymphocytes % 11.5 L, Monocytes % 5.7, Eosinophils % 0.7, Basophils % 0, Absolute Granulocytes 8.8 H, Absolute Lymphocytes 1.2, Absolute Monocytes 0.6, Absolute Eosinophils 0.1, Absolute Basophils 0 Vital Signs Date Time Temp Pulse Resp B/P B/P Pulse O2 O2 Flow FiO2 Mean Ox Delivery Rate 09/13 0816 147/75 09/13 0651 98.1 67 20 147/75 100 Room Air 09/12 2308 98.2 83 20 159/81 99 Room Air 09/12 1527 98.0 68 20 138/62 96 Room Air
--- NOTE | 2017-09-13 11:32 | Cons- OBGYN ---
General Information and HPI Consulting Request Date of Consult: 09/13/17 Requested By: Catalino Saldivar MD Reason for Consult: Incidential finding of small amount of fluid and air in uterus. Source of Information: old records Exam Limitations: unable to give history History of Present Illness: Pt is s/p CAVA with dementia and hemiparesis seen by home health aid who placed a riddle and saw discolored urine associated with temp of 102. Admitted to hospital treated for UTI noted to be impacted with stool along with TEST ENGINE OPERATOR findings some divitecula but no fistula or signs of infection. Now afebrile and having BM Allergies/Medications Allergies: Coded Allergies: NO KNOWN ALLERGIES (NONE 09/11/17) Home Med List: Albuterol Sulfate 2.5 MG/3 ML (0.083 %) VIAL.NEB 1 Vial INH/MELANIE AD PRN RESPIRATORY (Reported) Amlodipine Besylate 10 MG TABLET 1 TAB PO QAM HEART/BP (Reported) Atorvastatin Calcium (Lipitor) 40 MG TABLET 1 TAB PO QPM CHOLESTEROL ( Reported) Cholecalciferol (Vitamin D3) (Vitamin D3) 400 UNIT TABLET 1 TAB PO QAM SUPPLEMENT (Reported) Clonazepam (Klonopin) 0.5 MG TABLET 1 TAB PO BID ANXIETY (Reported) Cyanocobalamin (Vitamin B-12) 1,000 MCG TABLET 1 TAB PO DAILY SUPPLEMENT ( Reported) Donepezil HCl (Aricept) 10 MG TABLET 1 TAB PO QPM DEMENTIA (Reported) Fluticasone Propionate 50 MCG/ACTUATION SPRAY.SUSP 2 SPRAY BRANDON BID PRN nasal congestion do not use it for more then 5 days straight Haloperidol 1 MG TABLET 1 TAB PO BID AGITATION (Reported) Linaclotide (Linzess) 145 MCG CAPSULE 1 CAP PO DAILY PRN GI (Reported) Tramadol HCl 50 MG TABLET 1 TAB PO PRN PAIN (Reported) Valproic Acid (Depakene) 250 MG/5 ML SOLUTION 5 ML PO BID SEIZURES (Reported) Current Medications: Current Medications Sig/Claudette Start time Last Medication Dose Route Stop Time Status Admin Acetaminophen 650 MG Q6P PRN 09/09 1545 AC PO Amlodipine Besylate 10 MG QAM 09/10 0900 AC / PO 0816 Amoxicillin/ 875 MG Q12 09/11 2100 AC 09/13 Clavulanate Potassium PO 0816 Atorvastatin Calcium 40 MG QPM 09/09 2100 AC 09/12 PO 2052 Dextrose/Sodium 1,000 ML Q20H 09/12 08 AC 09/13 Chloride IV 0314 Docusate Sodium 100 MG DAILY NEEDED PRN 09/10 08 AC PO Donepezil HCl 10 MG QPM 09/09 2099 AC 09/12 PO 2051 Enoxaparin Sodium 40 MG DAILY 09/10 09 AC 09/13 SC 0817 Haloperidol 1 MG BID PRN 09/09 2030 AC PO Patient Medication 1 ED ONE ONE 09/12 1545 DC Teaching ED 09/12 1546 Polyethylene Glycol 17 GM DAILY 09/09 194 AC 09/13 PO 0817 Potassium Chloride 40 MEQ ONCE ONE 09/13 08 DC PO 09/13 0831 Senna 187 MG AT BEDTIME 09/10 2099 AC 09/12 PO 2051 Senna/Docusate Sodium 2 TAB DAILY PRN 09/09 1944 AC 09/10 PO 1030 Valproic Acid 250 MG BID 09/09 2099 AC 09/13 PO 816 Past History Medical History Neurological: CVA, dementia, seizure, CVA, LEFT HEMIPARESIS EENT: NONE Cardiovascular: hypertension, hyperlipidemia Respiratory: NONE Gastrointestinal: constipation Hepatic: NONE Renal: NONE Musculoskeletal: NONE Psychiatric: anxiety, depression Endocrine: NONE Blood Disorders: NONE Cancer(s): NONE TEST ENGINE OPERATOR/Reproductive: NONE Surgical History Pertinent Surgical History: non-contributory Family History Relations & Conditions If Any: BROTHER (pilonidal abscess). Psychosocial History Services at Home: Home Health Aide, Nursing Smoking Status: Unknown If Ever Smoked Review of Systems Review of Systems Constitutional: Reports: no symptoms. Exam & Diagnostic Data Vital Signs and I&O Vital Signs Date Time Temp Pulse Resp B/P B/P Pulse O2 O2 Flow FiO2 Mean Ox Delivery Rate 09/13 0816 147/75 09/13 0651 98.1 67 20 147/75 100 Room Air 09/12 2308 98.2 83 20 159/81 99 Room Air 09/12 1527 98.0 68 20 138/62 96 Room Air Intake & Output 09/13 1600 09/13 0000 09/12 1600 09/12 0000 Intake Total 400 270 640 610 Output Total 600 950 450 100 200 Balance -200 -680 190 -100 410 Intake, IV 400 150 400 10 Intake, Oral 120 240 600 Number 1 Bowel Movements Output, Urine 600 950 450 100 200 Physical Exam General Appearance: cachetic Head: atraumatic Eyes: Bilateral: normal appearance. Gastrointestinal: soft, non-tender Last 24 Hours of Labs: Laboratory Tests 09/13 0845 Chemistry Sodium (137 - 145 mmol/L) 143 Potassium (3.5 - 5.1 mmol/L) 3.6 Chloride (98 - 107 mmol/L) 103 Carbon Dioxide (22 - 30 mmol/L) 21 L Anion Gap (5 - 16) 18 H BUN (7 - 17 mg/dL) 7 Creatinine (0.5 - 1.0 mg/dL) 0.6 Estimated GFR (>60 ml/min) > 60 BUN/Creatinine Ratio (7 - 25 %) 11.7 Hematology CBC w Diff NO MAN DIFF REQ WBC (4.8 - 10.8 /CUMM) 14.3 H RBC (4.20 - 5.40 /CUMM) 4.23 Hgb (12.0 - 16.0 G/DL) 12.9 Hct (37 - 47 %) 39.5 MCV (81.0 - 99.0 FL) 93.3 MCH (27.0 - 31.0 PG) 30.4 MCHC (33.0 - 37.0 G/DL) 32.6 L RDW (11.5 - 14.5 %) 13.9 Plt Count (130 - 400 /CUMM) 529 H MPV (7.4 - 10.4 FL) 7.8 Gran % (42.2 - 75.2 %) 82.0 H Lymphocytes % (20.5 - 51.1 %) 11.8 L Monocytes % (1.7 - 9.3 %) 5.0 Eosinophils % (0 - 5 %) 1.0 Basophils % (0.0 - 2.0 %) 0.2 Absolute Granulocytes (1.4 - 6.5 /CUMM) 11.8 H Absolute Lymphocytes (1.2 - 3.4 /CUMM) 1.7 Absolute Monocytes (0.10 - 0.60 /CUMM) 0.7 H Absolute Eosinophils (0.0 - 0.7 /CUMM) 0.1 Absolute Basophils (0.0 - 0.2 /CUMM) 0 Assessment/Plan Assessment/Plan Pt non non impacted urine is clear abdomen is soft Doubt malignancy or endometritus Fluid is normal in uterus air is not normal I do not recomend any further diagnostic procedures and would follow pt as an out pt and watch for diverticular disease or fistula to develop. Problem List: 1. CVA 2. Dementia 3. Constipation 4. UTI (lower urinary tract infection) Consult Acknowledgment - Thank you for your consult request. Attending MD Review Statement Attending Statement Attending MD Statement: examined this patient, discussed with family
--- NOTE | 2017-09-13 11:46 | Patient Discharge Instructions ---
Discharge Instructions General Discharge Information You were seen/treated for: UTI fecal impaction Watch for these problems: In case of nausea, vomiting, abdominal pain, dysuria, shortness of breath, chest pain please go to the nearest emergency room Diet Continue normal diet: Yes Activity Full Activity/No Limits: No Activity Self Limited: Yes Acute Coronary Syndrome Inclusion Criteria At DC or during hospital stay patient has or had the following: ACS DIAGNOSIS No Discharge Core Measures Meds if any: Prescribed or Continued at Discharge Meds if any: NOT Prescribed or Continued at Discharge Congestive Heart Failure Inclusion Criteria At DC or during hospital stay patient has or had the following: CHF DIAGNOSIS No Discharge Core Measures Meds if any: Prescribed or Continued at Discharge Meds if any: NOT Prescribed or Continued at Discharge Cerebrovascular accident Inclusion Criteria At DC or during hospital stay patient has or had the following: CVA/TIA Diagnosis No Discharge Core Measures Meds if any: Prescribed or Continued at Discharge Meds if any: NOT Prescribed or Continued at Discharge Venous thromboembolism Inclusion Criteria VTE Diagnosis No VTE Type NONE VTE Confirmed by (Test) NONE Discharge Core Measures - Per Current guidelines, there needs to be overlap - treatment for the first 5 days of Warfarin therapy. - If discharged on Warfarin prior to 5 days of - overlap therapy, the patient will need to be - assessed for post discharge needs including - *Post discharge parental anticoagulation - *Warfarin and/or parental anticoagulation education - *Follow up date to check INR post discharge At least 5 days overlap therapy as Inpatient No Meds if any: Prescribed or Continued at Discharge Note: Overlap Therapy is Warfarin and Anticoagulant Meds if any: NOT Prescribed or Continued at Discharge
[2017-09-13] MEDS ORDERED: ARICEPT10 M1 PO (13:41)
[2017-09-13 16:41] VITALS: BP 147/75
--- NOTE | 2017-09-21 13:57 | Discharge Summary ---
Visit Information Visit Dates Admission Date: 09/09/17 Discharge Date: 09/13/17 Hospital Course Course Attending Physician: Catalino Saldivar MD Primary Care Physician: Catalino Saldivar MD Consulting Request: Consulting Specialty: Gynecology (urology and surgery) Consulting Physician: Drs. Leonard. Sergio and Andrei Reason for Consult: question of the fistula, constipation and uterine abnormalities Hospital Course: 72-year-old white female homebound bedridden, cared by her and visiting nurses and aides. Were noticed for the last few days some dark urine questionable stools within was sent to the emergency room and has had low urine output per also had a fever up to 101.2 in the ER was found to be having a stool impaction and no leukocytosis. All the cultures were obtained and IV antibiotics were given patient has history of CVA with left-sided weakness, seizure disorder, hypertension, hyperlipidemia, depression, dementia. Patient was admitted to the floor was disimpacted it was a question of an enterovesicular fistula patient was seen by surgery and urology was thought that there was no fistula present a [facility] consult was also requested because of the small amount of fluid and air in the uterus no surgical procedures were needed. The patient improved with IV antibiotic patient eventually was switched to by mouth. Patient was afebrile the hospital. Had very good bowel movements after disimpaction and treatments. Was discharged back home with home care and to follow with the meat loiner as an outpatient. Complications: None Allergies: Coded Allergies: NO KNOWN ALLERGIES (NONE 09/11/17) Significant Procedures: SERVICE DATE: 09/09/171108 EXAM TYPE: RAD - XRY-PORTABLE CHEST XRAY EXAMINATION: XR PORTABLE CHEST CLINICAL INFORMATION: Pneumonia. CHF. Altered mental status. COMPARISON: Chest radiograph 07/18/2016. TECHNIQUE: Portable frontal view of the chest was obtained. FINDINGS: The right hemidiaphragm is elevated. The lungs are otherwise clear without consolidation, edema, or effusion. No pneumothorax. The heart is normal in size. There are atheromatous calcifications in the aorta. There are degenerative changes at both shoulder joints. IMPRESSION: No active disease in the chest. SERVICE DATE: 09/09/17-1110 EXAM TYPE: CAT - CT HEAD WO IV CONTRAST EXAMINATION: CT HEAD WITHOUT CONTRAST CLINICAL INFORMATION: Altered mental status. Evaluate for intracranial hemorrhage or mass. COMPARISON: CT scan of the head 10/16/2017. TECHNIQUE: Contiguous axial imaging was performed from the skull base to vertex without intravenous administration of contrast. DLP: 616.06 mGy-cm FINDINGS: There are chronic changes of a right craniotomy. There is a small surgical resection cavity within the right middle frontal gyrus and more extensive gliotic changes within the right cerebral hemisphere. There are ill-defined foci of hypoattenuation within the periventricular white matter and global parenchymal volume loss with ex vacuo expansion of the lateral ventricles. Asymmetric loss of volume within the right cerebral peduncle consistent with Wallerian degeneration of the corticospinal tract. No acute intracranial hemorrhage. Grossly no evidence of acute territorial infarct. Mastoid air cells and middle ear cavities are well-aerated. Visualized paranasal sinuses are well-aerated. IMPRESSION: Stable examination with no evidence of acute territorial infarct or hemorrhage. Chronic postoperative changes within the right supratentorial compartment. There is relatively extensive volume loss and periventricular white matter changes that either represent a manifestation of posttreatment effects or chronic small vessel ischemia. SERVICE DATE: 09/09/17 EXAM TYPE: CAT - CT ABD & PELVIS W/O IV CONTRAS EXAMINATION: CT ABDOMEN AND PELVIS WITHOUT CONTRAST CLINICAL INFORMATION: Diffuse abdominal pain. UTI. COMPARISON: CT of the abdomen and pelvis 07/23/2013. TECHNIQUE: Multidetector volumetric imaging was performed from the superior aspect of the liver through the pubic symphysis. Sagittal and coronal reformatted images were obtained on the technologist's workstation. DLP: 363 mGy-cm FINDINGS: LUNG BASES: Trace subsegmental atelectasis at the left base. LIVER, GALLBLADDER, AND BILIARY TREE: The liver is normal in size, shape, and attenuation. No focal hepatic lesion or biliary ductal dilatation is present. The gallbladder is unremarkable with no evidence of radiopaque gallstones, gallbladder wall thickening, or obvious pericholecystic inflammatory changes. PANCREAS: Unremarkable. SPLEEN: Unremarkable. ADRENAL GLANDS: Unremarkable. KIDNEYS AND URETERS: Vascular calcifications are present bilaterally. No nephrolithiasis, mass, or hydroureteronephrosis. There is minimal fullness in the right pelvis is new since 07/23/2013. There is a subcentimeter exophytic cyst arising from the upper pole of the right kidney. BLADDER: Only partly distended but within normal limits. GASTROINTESTINAL TRACT: The rectal vault is markedly distended but there is no perirectal inflammatory change to suggest stercoral colitis. The appendix is normal. There is a small hiatal hernia. The stomach appears normal. The small bowel is nondistended. ABDOMINAL WALL: No significant hernia is appreciated. LYMPH NODES: Normal. VASCULAR: Atheromatous changes in the abdominal aorta and its branch vessels. PELVIC VISCERA: There is a new 2.8 cm hypodense lesion within the uterine fundus which is new since 11/09/2013. A small amount of nondependent air is also present within the uterine body and at the fundus. There is no evidence of adnexal mass. OSSEOUS STRUCTURES: There is grade 1 anterolisthesis of L4 on L5 related to advanced degenerative facet arthropathy. There is no acute fracture or destructive lesion within the osseous structures. IMPRESSION: - The rectal vault is markedly distended with stool compatible with fecal impaction. No evidence of stercoral colitis or bowel obstruction. - No nephrolithiasis or hydronephrosis. There is mild fullness of the right renal pelvis. - There is new 2.8 cm hypodensity within the uterine fundus in addition to small amount of air in the uterine body and fundus. This finding is of uncertain etiology. Correlation for any prior intervention is recommended. There are no findings to suggest fistulization. A pelvic exam may be helpful. SERVICE DATE: 09/09/17 EXAM TYPE: US - US-PELVIC MASS DIAG EXAMINATION: ULTRASOUND OF THE PELVIS CLINICAL INFORMATION: Hypodensity seen on pelvic CT scan. Presumptive diagnosis of uterine mass/fibroid. COMPARISON: CT scan of the abdomen and pelvis dated 09/09/2017. TECHNIQUE: Transabdominal pelvic ultrasound. FINDINGS: Evaluation is extremely limited due to a decompressed bladder (patient is incontinent and could therefore not be prepped for the transabdominal exam). Due to the high location of the uterus and the largely distended and fecal impacted rectum, transvaginal exam was not felt to be useful and was not attempted in this patient, who also appears to be unable to consent for the transvaginal procedure. Uterus: The uterus is anteverted and elongated, measuring 7.5 x 3.7 x 4.7 cm. Myometrial detail is completely obscured by extensive air within the uterine cavity, which produces a linear echogenic line with posterior dirty shadowing. Ovaries: Not seen. Other: Limited assessment reveals no definite adnexal mass or free fluid collection. IMPRESSION: 1. Extremely limited exam. 2. Redemonstrated is abnormal air within the uterine cavity. On CT scan, air within the endometrial cavity and abnormal thickening of the endometrial stripe versus large amount of endometrial free fluid was also demonstrated. Findings are nonspecific but raise the suspicion of pelvic inflammatory disease/endometritis. Alternatively, there may be subtle fistulous connection with the abnormally gas and fecal distended rectum and the uterus. Close clinical correlation is requested. SERVICE DATE: 09/12/17- EXAM TYPE: MRI - MRI-PELVIS W/O & W [facility] EXAMINATION: MR PELVIS WITHOUT AND WITH CONTRAST CLINICAL INFORMATION: Ultrasound showed air in the uterine fundus. Question rectovaginal fistula. COMPARISON: Ultrasound of the pelvis dated 09/09/2017. CT scan of the abdomen and pelvis dated 09/09/2017. TECHNIQUE: MRI scan of the pelvis was performed using multiple imaging sequences and imaging planes. 6 mL of intravenous gadolinium (Gadavist) was given and postcontrast enhanced evaluation was performed. FINDINGS: Uterus: Uterus is atrophic (4.7 x 2.1 x 3.3 cm) and deviated towards the right side. The uterus is retroverted on today's exam. As seen on the CT scan, the vagina as well as the endometrial cavity is filled with abnormal fluid. There is also a large locule of air seen in the uterine fundus. The uterus is otherwise unremarkable. No definite fistulous tract to the rectum can be confirmed on these images, though there is loss of the fat plane between the rectum and the vagina on several of the images. Ovaries: Both ovaries are atrophic with the left ovary measuring 1.7 x 0.9 x 2.0 cm and the right ovary 1.5 x 1.3 x 1.0 cm. No ovarian mass. No significant free fluid in the pelvis. Bowel loops: Again seen is a capacious rectum filled with fecal material. The degree of rectal distention has diminished when compared to the prior exam. Moderate sigmoid colonic diverticulosis is seen with no evidence of acute diverticulitis. Included small and large bowel loops are otherwise unremarkable. Lymphovascular structures: Unremarkable. No adenopathy or free fluid collection. Bones: Mild degenerative disc disease at L4-L5. No suspicious bone findings. Other: There is some edema seen in the gluteal muscles and adductor muscles bilaterally. IMPRESSION: 1. As seen on the CT scan, there is abnormal fluid filling the vagina and atrophic uterus. Small locule of air is also seen in the uterine fundus. Findings are similar to the CT scan. There is also continued loss of the fat plane between the rectum and the vagina, though no definite fistulous connection can be confirmed. 2. Ovaries bilaterally atrophic and unremarkable. 3. Rectal fecal impaction has improved. Sigmoid colonic diverticulosis is seen. 4. Mild edema in the gluteal muscles and adductor muscles. Pertinent Lab Results: 09/09/17 1253: Anion Gap 11, Estimated GFR > 60, BUN/Creatinine Ratio 18.6, Glucose 151 H, Lactic Acid 1.6, Calcium 7.9 L, Total Bilirubin 0.5, AST 13 L, ALT 11, Alkaline Phosphatase 109, Troponin I < 0.01, Total Protein 7.2, Albumin 3.1 L, Globulin 4.1, Albumin/Globulin Ratio 0.8 L 09/09/17 1042: CBC w Diff NO MAN DIFF REQ, RBC 3.86 L, MCV 93.3, MCH 31.6 H, MCHC 33.9, RDW 14.2, MPV 7.9, Gran % 86.6 H, Lymphocytes % 7.5 L, Monocytes % 5.5, Eosinophils % 0.1, Basophils % 0.3, Absolute Granulocytes 13.0 H, Absolute Lymphocytes 1.1 L, Absolute Monocytes 0.8 H, Absolute Eosinophils 0, Absolute Basophils 0 09/09/17 1000: Urine Color BROWN H, Urine Clarity TURBD H, Urine pH 7.0, Ur Specific [place] 1.025, Urine Protein >=300 H, Urine Ketones 15 H, Urine Nitrite NEG, Urine Bilirubin NEG@ICTO, Urine Urobilinogen 0.2, Ur Leukocyte Esterase LARGE H, Ur Microscopic SEDIMENT EXAMINED, Urine RBC >75 H, Urine WBC PACKD H, Ur Epithelial Cells OCCAS, Urine Bacteria PACKD H, Hyaline Casts RARE H, Micro UA Comment MORE INFO: H, Urine Hemoglobin LARGE H, Urine Glucose 100 H Microbiology 09/09 1526 BLOOD: Blood Culture - ORD 09/09 1526 BLOOD: Blood Culture - ORD 09/09 UNK URINE ROUT: Urine Culture - RECD 09/09/17 1808: Lactic Acid 1.3 09/09/17 1253: Anion Gap 11, Estimated GFR > 60, BUN/Creatinine Ratio 18.6, Glucose 151 H, Lactic Acid 1.6, Calcium 7.9 L, Total Bilirubin 0.5, AST 13 L, ALT 11, Alkaline Phosphatase 109, Troponin I < 0.01, Total Protein 7.2, Albumin 3.1 L, Globulin 4.1, Albumin/Globulin Ratio 0.8 L Microbiology 09/10 1807 BLOOD: Blood Culture - COMP STAPH COAGULASE NEGATIVE 09/09 152 BLOOD: Blood Culture - CAN Cancelled: SPECIMEN NOT RECEIVED IN LABORATORY Microbiology 09/10 1807 BLOOD: Blood Culture - COMP STAPH COAGULASE NEGATIVE 09/10/17 0650: Anion Gap 13, Estimated GFR > 60, BUN/Creatinine Ratio 11.4, CBC w Diff NO MAN DIFF REQ, RBC 3.26 L, MCV 94.1, MCH 31.6 H, MCHC 33.6, RDW 14.4, MPV 8.6, Gran % 82.2 H, Lymphocytes % 10.0 L, Monocytes % 7.1, Eosinophils % 0.6, Basophils % 0.1, Absolute Granulocytes 8.0 H, Absolute Lymphocytes 1.0 L, Absolute Monocytes 0.7 H, Absolute Eosinophils 0.1, Absolute Basophils 0 09/09/17 180: Lactic Acid 1.3 09/11/17 0635: CBC w Diff NO MAN DIFF REQ, RBC 3.55 L, MCV 92.7, MCH 31.2 H, MCHC 33.6, RDW 14.2, MPV 8.0, Gran % 82.1 H, Lymphocytes % 11.5 L, Monocytes % 5.7, Eosinophils % 0.7, Basophils % 0, Absolute Granulocytes 8.8 H, Absolute Lymphocytes 1.2, Absolute Monocytes 0.6, Absolute Eosinophils 0.1, Absolute Basophils 0 09/12/17 0910: CBC w Diff NO MAN DIFF REQ, RBC 3.82 L, MCV 93.8, MCH 31.2 H, MCHC 33.3, RDW 13.9, MPV 7.8, Gran % 82.6 H, Lymphocytes % 10.8 L, Monocytes % 6.0, Eosinophils % 0.4, Basophils % 0.2, Absolute Granulocytes 11.2 H, Absolute Lymphocytes 1.5, Absolute Monocytes 0.8 H, Absolute Eosinophils 0.1, Absolute Basophils 0 09/13/17 0845: Anion Gap 18 H, Estimated GFR > 60, BUN/Creatinine Ratio 11.7, CBC w Diff NO MAN DIFF REQ, RBC 4.23, MCV 93.3, MCH 30.4, MCHC 32.6 L, RDW 13.9, MPV 7.8, Gran % 82.0 H, Lymphocytes % 11.8 L, Monocytes % 5.0, Eosinophils % 1.0, Basophils % 0.2, Absolute Granulocytes 11.8 H, Absolute Lymphocytes 1.7, Absolute Monocytes 0.7 H, Absolute Eosinophils 0.1, Absolute Basophils 0 Disposition Summary Disposition Principal Diagnosis: UTI Constipation Fistula was ruled out Abnormal uterus Additional Diagnosis: CVA with left-sided weakness Seizures Hypertension Hyperlipidemia Depression Dementia Discharge Disposition: home health services Discharge Instructions General Discharge Information Code Status: Full Code Patient's Diet: As tolerated Patient's Activity: Bedridden Follow-Up Instructions/Appts: Follow-up with [facility]MIST and myself Medications at Discharge Discharge Medications: Continue taking these medications: Valproic Acid (Depakene) 250 MG/5 ML SOLUTION 5 Milliliters ORAL TWICE DAILY Comments: Last Taken: 09/13/17 Time: 0815 AM Amlodipine Besylate (Amlodipine Besylate) 10 MG TABLET 1 Tablet ORAL Every Morning Comments: Last Taken: 09/13/17 Time: 0815 AM Cholecalciferol (Vitamin D3) (Vitamin D3) 400 UNIT TABLET 1 Tablet ORAL Every Morning Comments: NOT GIVEN IN HOSPITAL Clonazepam (Klonopin) 0.5 MG TABLET 1 Tablet ORAL TWICE DAILY Comments: NOT GIVEN IN HOSPITAL Atorvastatin Calcium (Lipitor) 40 MG TABLET 1 Tablet ORAL Every night Comments: Last Taken: 09/12/17 Time: 9:00 PM Haloperidol (Haloperidol) 1 MG TABLET 1 Tablet ORAL TWICE DAILY Qty = 60 Comments: NOT GIVEN IN HOSPITAL Tramadol HCl (Tramadol HCl) 50 MG TABLET 1 Tablet ORAL as needed for PAIN Qty = 30 Comments: NOT GIVEN IN HOSPITAL Linaclotide (Linzess) 145 MCG CAPSULE 1 Capsule ORAL DAILY as needed for GI Qty = 30 Comments: NOT GIVEN IN HOSPITAL Fluticasone Propionate (Fluticasone Propionate) 50 MCG/ACTUATION SPRAY.SUSP 2 [place] In the nose TWICE DAILY as needed for nasal congestion Qty = 1 Instructions: do not use it for more then 5 days straight Comments: NOT GIVEN IN HOSPTIAL Cyanocobalamin (Vitamin B-12) 1,000 MCG TABLET 1 Tablet ORAL DAILY Comments: NOT GIVEN IN HOSPITAL Albuterol Sulfate (Albuterol Sulfate) 2.5 MG/3 ML (0.083 %) VIAL.NEB 1 Vial Inhale Solution As Directed as needed for RESPIRATORY Qty = 90 Comments: NOT GIVEN IN HOSPITAL Donepezil HCl (Aricept) 10 MG TABLET 1 Tablet ORAL Every night Qty = 30 Instructions: .. Comments: Last Taken: 09/12/17 Time: 9:00 PM This prescription has been renewed Copies To: Horacio Causey DO,Hi Estrada; Sergio LONG,Robert Howell; Alexandre Forbes MD; Catalino Saldivar MD Attending MD Review Statement Documenting Attending: Catalino Saldivar MD
== END 2017-09-13 16:45 | DRG 389 ==
LOC: ERH 10:03 → 2NB 16:12 → ERHI 16:12 → ENRESERV 16:40 → ENTRNSPT 18:22 → EDTRNSPT 18:39 → EDTRNSPTSTS 18:39 → 2NB 18:48 → CMPTRNSPT 19:00 → ENPENDDIS 09-13 12:28 → 2NB 09-13 16:45
PROVIDERS: Internal Medicine; Physician Assistant Medical; Student in an Organized Health Care Education/Training Program
DX: K56.41 Fecal impaction (principal); N30.01 Acute cystitis with hematuria; E11.8 Type 2 diabetes mellitus with unspecified complications; I69.354 Hemiplegia and hemiparesis following cerebral infarction affecting left non-dominant side; N13.39 Other hydronephrosis; R56.9 Unspecified convulsions; I10 Essential (primary) hypertension; F03.90 Unspecified dementia, unspecified severity, without behavioral disturbance, psychotic disturbance, mood disturbance, and anxiety; E78.5 Hyperlipidemia, unspecified; D72.829 Elevated white blood cell count, unspecified; Z79.51 Long term (current) use of inhaled steroids; F41.9 Anxiety disorder, unspecified; F32.9 Major depressive disorder, single episode, unspecified; Z74.01 Bed confinement status
CPT/HCPCS: 2NBSP; 75634; 87184; 36415; 36592; 71045; 72197; 74176; 81001; 82436; 87040; 87086; 87147; 93005; 93010; 96374; A9579; J0696; J1650; J7042

== ENCOUNTER 2017-09-30 23:30 | Inpatient (IN) | payer OTHER ==
[~2017-09-30] VITALS: Ht 157.5 cm; Wt 60.3 kg
--- NOTE | 2017-09-30 23:37 | ED DYSPNEA/ASTHMA COMPLAINT ---
History of Present Illness General Chief Complaint: Dyspnea (COPD, CHF, Other) Stated Complaint: DIFF BREATHING Source: family, EMS Exam Limitations: clinical condition Vital Signs & Intake/Output Vital Signs & Intake/Output Vital Signs Date Time Temp Pulse Resp B/P B/P Pulse O2 O2 Flow FiO2 Mean Ox Delivery Rate 10/01 0409 98.5 80 20 128/58 96 Nasal 2.0L Cannula 10/01 0121 100.5 10/01 0121 100.5 77 22 122/56 95 Nasal 2.0L Cannula 10/01 0029 Nasal 3.0L Cannula 10/01 0020 101.7 09/30 2339 94 Nasal 2.0L Cannula 09/30 2337 101.7 85 24 153/66 88 Room Air Allergies Coded Allergies: NO KNOWN ALLERGIES (NONE 09/11/17) Reconcile Medications Albuterol Sulfate 2.5 MG/3 ML (0.083 %) VIAL.NEB 1 Vial INH/MELANIE AD PRN RESPIRATORY (Reported) Amlodipine Besylate 10 MG TABLET 1 TAB PO QAM HEART/BP (Reported) Atorvastatin Calcium (Lipitor) 40 MG TABLET 1 TAB PO QPM CHOLESTEROL ( Reported) Cholecalciferol (Vitamin D3) (Vitamin D3) 400 UNIT TABLET 1 TAB PO QAM SUPPLEMENT (Reported) Clonazepam (Klonopin) 0.5 MG TABLET 1 TAB PO BID ANXIETY (Reported) Cyanocobalamin (Vitamin B-12) 1,000 MCG TABLET 1 TAB PO DAILY SUPPLEMENT ( Reported) Donepezil HCl (Aricept) 10 MG TABLET 1 TAB PO QPM DEMENTIA .. Fluticasone Propionate 50 MCG/ACTUATION SPRAY.SUSP 2 SPRAY BRANDON BID PRN nasal congestion do not use it for more then 5 days straight Haloperidol 1 MG TABLET 1 TAB PO BID AGITATION (Reported) Linaclotide (Linzess) 145 MCG CAPSULE 1 CAP PO DAILY PRN GI (Reported) Tramadol HCl 50 MG TABLET 1 TAB PO PRN PAIN (Reported) Valproic Acid (Depakene) 250 MG/5 ML SOLUTION 5 ML PO BID SEIZURES (Reported) Triage Nurses Notes Reviewed? yes Onset: Gradual Duration: day(s): Timing: recent history Severity: moderate Modifying Factors: Improves With: rest. Associated Symptoms: cough HPI: 72 yo woman h/o left sided hemiparesis, profound dementia, presents with cough, increased phlegm, dyspnea. Per her , he needed to suction copious amounts of secretions. He noted increased work of breathing. She is otherwise well. Past History Travel History Traveled to [place] past 21 day No Medical History Any Pertinent Medical History? see below for history Neurological: CVA, dementia, seizure, CVA, LEFT HEMIPARESIS EENT: NONE Cardiovascular: hypertension, hyperlipidemia Respiratory: NONE Gastrointestinal: constipation Hepatic: NONE Renal: NONE Musculoskeletal: NONE Psychiatric: anxiety, depression Endocrine: NONE Blood Disorders: NONE Cancer(s): NONE GUIDE CRUISE/Reproductive: NONE History of MRSA: No History of VRE: No History of CDIFF: No Surgical History Surgical History: non-contributory Psychosocial History Who do you live with Spouse Services at Home Home Health Aide, Nursing What is your primary language Micronesian Family History Family History, If Any: BROTHER (pilonidal abscess). Hx Contributory? No Review of Systems Review of Systems Constitutional: Reports: see HPI. Physical Exam Physical Exam General Appearance: well developed/nourished, mild distress Head: atraumatic, normal appearance Eyes: Bilateral: normal appearance. Ears, Nose, Throat: normal pharynx, normal ENT inspection Neck: normal inspection, supple, full range of motion Respiratory: chest non-tender, diffuse rhonchi w/ prolonged expiration phase Cardiovascular: regular rate/rhythm Gastrointestinal: normal bowel sounds Extremities: normal inspection, normal capillary refill, normal range of motion, no edema Neurologic/Psych: no motor/sensory deficits, awake, alert, oriented x 3 Skin: intact, normal color Comments: Review of Systems - except as otherwise noted in HPI Review of Systems Constitutional:no symptoms. EENTM:no symptoms. Respiratory:no symptoms. Cardiovascular:no symptoms. GI:no symptoms. Genitourinary:no symptoms. Musculoskeletal:no symptoms. Skin:no symptoms. Neurological/Psychological:no symptoms. Hematologic/Endocrine:no symptoms. Immunologic/Allergic:no symptoms. All Other Systems: Reviewed and Negative Physical Exam Physical Exam General Appearance: well developed/nourished, mild apparent distress Head: atraumatic, normal appearance Eyes: Bilateral: normal appearance. Ears, Nose, Throat: normal pharynx, normal ENT inspection Neck: normal inspection, supple, full range of motion Respiratory:bilateral rhonchi, increased secretions from mouth Cardiovascular: regular rate/rhythm Gastrointestinal: normal bowel sounds, soft, non-tender, no organomegaly Back: normal inspection, normal range of motion Extremities: normal inspection, normal capillary refill, normal range of motion, no edema Neurologic/Psych: nonverbal, left sided hemiparesis, w/ left arm contracture. Skin: intact, normal color, warm/dry Core Measures ACS in differential dx? No CVA/TIA Diagnosis No Sepsis Present: No Sepsis Focused Exam Completed? No Progress Differential Diagnosis: asthma, bronchitis, CHF, COPD, pneumonia Plan of Care: Orders Procedure Date/time Status Nothing by Mouth 10/01 B Active TROPONIN LEVEL 10/01 599 Active CBC WITHOUT DIFFERENTIAL 10/01 599 Active BASIC ELECTROLYTES PLUS BUN&CR 10/01 599 Active EKG 10/01 599 Active Saline Lock 10/01 309 Active Misc Message 10/01 309 Active ED Holding Orders 10/01 309 Active Admit to inpatient 10/01 309 Active Vital Signs 10/01 309 Active Pathway - chart 10/01 0305 Active Add-on Test (ER Only) 10/01 030 Active LOWER RESPIRATORY CULTURE 10/01 0247 Active TRC EVALUATION (GEN) 10/01 0226 Active Code Status 10/01 0226 Active Patient Data 10/01 0210 Active CULTURE,URINE 10/01 0200 Active URINALYSIS 10/01 0200 Complete D-DIMER 10/01 0049 Complete BLOOD CULTURE 10/01 0040 Active BLOOD CULTURE 10/01 0036 Active Intake & Output 10/01 0032 Active VTE Mechanical Prophylaxis 10/01 UNK Active TROPONIN LEVEL 09/30 2337 Complete LIPASE 09/30 2337 Complete LACTIC ACID 09/30 2337 Complete HEPATIC FUNCTION PANEL 09/30 2337 Complete CBC WITHOUT DIFFERENTIAL 09/30 2337 Complete BASIC METABOLIC PANEL 09/30 2337 Complete AMYLASE 09/30 2337 Complete EKG 09/30 2337 Active Current Medications Sig/Claudette Start time Last Medication Dose Stop Time Status Admin Atorvastatin Calcium 40 MG QPM 10/01 2099 UNVr (Lipitor) Donepezil HCl 10 MG QPM 10/01 2099 UNVr (Aricept) Albuterol Sulfate 3 ML 4 TIMES/DAY 10/01 899 UNVr (Proventil) Amlodipine Besylate 10 MG QAM 10/01 899 UNVr (Norvasc) Azithromycin 500 MG DAILY 10/01 899 UNVr (Zithromax) Sodium Chloride 250 ML (Normal Saline 0.9%) Ceftriaxone Sodium 1,000 MG DAILY 10/01 899 UNVr (Rocephin) Clonazepam 0.5 MG BID 10/01 899 UNVr (KlonoPIN) 10/08 0859 Cyanocobalamin 1,000 MCG DAILY 10/01 899 UNVr (Vitamin B12) Haloperidol 1 MG BID 10/01 899 UNVr (Haldol) Valproic Acid 250 MG BID 10/01 899 UNVr (Depakene) Heparin Sodium 5,000 UNIT Q8 10/01 599 UNVr (Porcine) Acetaminophen 650 MG Q6P PRN 10/01 314 UNVr (Tylenol) Fluticasone 2 SPRAY BID PRN 10/01 030 UNVr Propionate (Flonase) Laboratory Tests 10/01/17 030: Urine Color YEL, Urine Clarity CLEAR, Urine pH 6.0, Ur Specific [place] 1.025, Urine Protein TRACE H, Urine Ketones NEG, Urine Nitrite NEG, Urine Bilirubin NEG, Urine Urobilinogen 0.2, Ur Leukocyte Esterase NEG, Ur Microscopic SEDIMENT EXAMINED, Urine WBC 1-3 H, Ur Epithelial Cells RARE, Urine Mucus MOD H, Urine Hemoglobin NEG, Urine Glucose NEG 10/01/17 0247: D-Dimer High Sensitivty Cancelled 10/01/17 0237: Lactic Acid Cancelled 10/01/17 0049: Anion Gap 10, Estimated GFR 54 L, BUN/Creatinine Ratio 14.0, Glucose 129 H, Lactic Acid 1.2, Calcium 8.6, Total Bilirubin 0.6, Direct Bilirubin 0.1, AST 9 L, ALT 20, Alkaline Phosphatase 100, Troponin I < 0.01, Total Protein 7.0, Albumin 3.2 L, Amylase 86, Lipase 69, D-Dimer High Sensitivty 252 H 10/01/17 0010: CBC w Diff MAN DIFF ORDERED, RBC 4.32, MCV 92.6, MCH 31.2 H, MCHC 33.7, RDW 14.5, MPV 8.3, Gran % 93.0 H, Lymphocytes % 3.6 L, Monocytes % 2.6, Eosinophils % 0.7, Basophils % 0.1, Absolute Granulocytes 22.0 H, Segmented Neutrophils 86 H, Band Neutrophils 7 H, Absolute Lymphocytes 0.9 L, Lymphocytes 2 L, Monocytes 5, Absolute Monocytes 0.6, Absolute Eosinophils 0.2, Absolute Basophils 0, Platelet Estimate INCREASED, Normocytic RBCs VERIFIED, Normochromic RBCs VERIFIED Microbiology 10/01 0300 URINE ROUT: Urine Culture - RECD 10/01 0247 LOWER RESP: Respiratory Culture - ORD 10/01 024 LOWER RESP: Gram Stain - ORD 10/01 0049 BLOOD: Blood Culture - RECD 10/01 0019 BLOOD: Blood Culture - RECD Diagnostic Imaging: Viewed by Me: Radiology Read. Discussed w/RAD: Radiology Read. CXR Impression: no acute abnormality, no infiltrates, normal size heart, normal mediastinum, PATIENT: VERONICA TRENT PRESENT AGE: 72 PATIENT ACCOUNT NO: [id number] : 44 LOCATION: ER ORDERING PHYSICIAN: Reggie Stoll MD SERVICE DATE: 09/30/17 EXAM TYPE: RAD - XRY- PORTABLE CHEST XRAY EXAMINATION: XR PORTABLE CHEST CLINICAL INFORMATION: Chest pain. COMPARISON: Chest x-ray September 09, 2017 TECHNIQUE: Portable frontal view of the chest was obtained. 12:16 AM FINDINGS: The chin overlies lung apex. Visualized lungs are clear. No pulmonary vascular congestion. No pleural effusion. No pneumothorax. The cardiomediastinal contours are unchanged. There are calcifications of aortic arch. There is degenerative spondylosis of the thoracic spine. IMPRESSION: No acute change of the chest. DICTATED BY: Santi Torre MD DATE/TIME DICTATED:10/01/17111 SUPERVISOR PIPE JOINTS:ANTON DATE/TIME TRANSCRIBED:10/01/17111 CONFIDENTIAL, DO NOT COPY WITHOUT APPROPRIATE AUTHORIZATION. <Electronically signed in Other Vendor System> SIGNED BY: Santi Torre MD 10/01/17116 Initial ED EKG: nsr, no acute changes Departure Departure Disposition: STILL A PATIENT Condition: Stable Clinical Impression Primary Impression: Pneumonia Secondary Impressions: Sepsis Referrals: Catalino Saldivar MD (PCP/Family) Departure Forms: Customer Survey General Discharge Information Admission Note Spoke With: Christophe Sevilla MD Documentation of Exam: Documentation of any treatments & extenuating circumstances including Concerns Regarding Discharge (functional status, medication knowledge or non-compliance, living conditions, etc.) that warrant an admission rather than observation: pt with hypoxia, fever, wbc, c/w sepsis, most likely pumonary etiology - bronchitis/pneumonia. Pt stable for gen med, merits iv abx, close follwo up. Critical Care Note Critical Care Note Critical Care Time: non-applicable
[2017-10-01 00:21] LABS: ABSOLUTE BASOPHIL COUNT 0 /CUMM (0.0-0.2); ABSOLUTE EOSINOPHIL COUNT 0.2 /CUMM (0.0-0.7); ABSOLUTE LYMPH COUNT 0.9 /CUMM (1.2-3.4); ABSOLUTE MONOCYTE COUNT 0.6 /CUMM (0.10-0.60); BASOPHIL % 0.1 % (0.0-2.0); EOSINOPHIL % 0.7 % (0-5); MEAN CORPUSCULAR HGB 31.2 PG (27.0-31.0); MEAN CORPUSCULAR HGB CONC 33.7 G/DL (33.0-37.0); MEAN CORPUSCULAR VOLUME 92.6 FL (81.0-99.0); MEAN PLATELET VOLUME 8.3 FL (7.4-10.4); PLATELET COUNT 465 /CUMM (130-400); RBC DISTRIBUTION WIDTH 14.5 % (11.5-14.5); RED BLOOD CELL CT 4.32 /CUMM (4.20-5.40); WHITE BLOOD CELL COUNT 23.6 /CUMM (4.8-10.8)
--- NOTE | 2017-10-01 01:17 | RADIOLOGY REPORT ---
EXAMINATION: XR PORTABLE CHEST CLINICAL INFORMATION: Chest pain. COMPARISON: Chest x-ray September 09, 2017 TECHNIQUE: Portable frontal view of the chest was obtained. 12:16 AM FINDINGS: The chin overlies lung apex. Visualized lungs are clear. No pulmonary vascular congestion. No pleural effusion. No pneumothorax. The cardiomediastinal contours are unchanged. There are calcifications of aortic arch. There is degenerative spondylosis of the thoracic spine. IMPRESSION: No acute change of the chest.
--- NOTE | 2017-10-01 02:11 | History & Physical ---
Itzel Allen 10/01/17 0211: General Information and HPI MD Statement: I have seen and personally examined VERONICA TRENT and documented this H&P. The patient is a 72 year old F who presented with a patient stated chief complaint of [pna v/s uti ]. Source of Information: family Exam Limitations: unable to give history History of Present Illness: 72 yo F with PMH of hypertension, hyperlipidemia, depression, CVA with left sided deficits, seizures was brought to the ED for having productive cough since 1 day and chills at home. History was obtained from the family as the patient has dementia at baseline and was unable to communicate. states that patient have been coughing since yesterday morning. Cough is productive with clear copious sputum. He also reported that patient had a low grade subjective fever at home. Denied any dyspnea or pleuretic chest pain. The also reports that since past two weeks, patient is having a funny urine, greenish brown in color, foul smelling. In the previous records, brown urine has been noted and there was a concern if she has some enterovesical fistula, however urology consult service was not convinced. Patient also had a swallow eval during her previous admission and was recommended Regular (puree) and honey thick liquids. The feeds her with baby food (fruits, protein shake) at home. Patient sees Dr. Jimenez as her agronomy technician but has not followed up with him since a while. Patient is bedridden at baseline and communicates that the only time she ambulates is when she has to go to ER. Allergies/Medications Allergies: Coded Allergies: NO KNOWN ALLERGIES (NONE 09/11/17) Home Med list Albuterol Sulfate 2.5 MG/3 ML (0.083 %) VIAL.NEB 1 Vial INH/MELANIE AD PRN RESPIRATORY (Reported) Amlodipine Besylate 10 MG TABLET 1 TAB PO QAM HEART/BP (Reported) Atorvastatin Calcium (Lipitor) 40 MG TABLET 1 TAB PO QPM CHOLESTEROL ( Reported) Cholecalciferol (Vitamin D3) (Vitamin D3) 400 UNIT TABLET 1 TAB PO QAM SUPPLEMENT (Reported) Clonazepam (Klonopin) 0.5 MG TABLET 1 TAB PO BID ANXIETY (Reported) Cyanocobalamin (Vitamin B-12) 1,000 MCG TABLET 1 TAB PO DAILY SUPPLEMENT ( Reported) Donepezil HCl (Aricept) 10 MG TABLET 1 TAB PO QPM DEMENTIA .. Fluticasone Propionate 50 MCG/ACTUATION SPRAY.SUSP 2 SPRAY BRANDON BID PRN nasal congestion do not use it for more then 5 days straight Haloperidol 1 MG TABLET 1 TAB PO BID AGITATION (Reported) Linaclotide (Linzess) 145 MCG CAPSULE 1 CAP PO DAILY PRN GI (Reported) Tramadol HCl 50 MG TABLET 1 TAB PO PRN PAIN (Reported) Valproic Acid (Depakene) 250 MG/5 ML SOLUTION 5 ML PO BID SEIZURES (Reported) Inpatient Sepsis Exam Sepsis Cardiac Exam: Regular Rate/Rhythm Sepsis Resp Exam: CTA Sepsis Cap Refill Exam: <2 Sec Sepsis Peripheral Pulse Exam: Normal Sepsis Peripheral Pulse Location: Radial Sepsis Skin Color Exam: Normal for Ethnicity Skin Temp/Moisture Exam: Warm/Dry Past History Travel History Traveled to [place] past 21 day No Medical History Neurological: CVA, dementia, seizure, CVA, LEFT HEMIPARESIS EENT: NONE Cardiovascular: hypertension, hyperlipidemia Respiratory: NONE Gastrointestinal: constipation Hepatic: NONE Renal: NONE Musculoskeletal: NONE Psychiatric: anxiety, depression Endocrine: NONE Blood Disorders: NONE Cancer(s): NONE FRONT OFFICE AGENT/Reproductive: NONE History of MRSA: No History of VRE: No History of CDIFF: No Surgical History Surgical History: non-contributory Past Family/Social History Family History Relations & Conditions if any BROTHER (pilonidal abscess). Psychosocial History Services at Home: Home Health Aide, Nursing ETOH Use: denies use Review of Systems Review of Systems Constitutional: Reports: see HPI. Exam & Diagnostic Data Last 24 Hrs of Vital Signs/I&O Vital Signs Date Time Temp Pulse Resp B/P B/P Pulse O2 O2 Flow FiO2 Mean Ox Delivery Rate 10/01 0121 100.5 10/01 0121 100.5 77 22 122/56 95 Nasal 2.0L Cannula 10/01 0029 Nasal 3.0L Cannula 10/01 0020 101.7 09/30 2338 94 Nasal 2.0L Cannula 09/30 2336 101.7 85 24 153/66 88 Room Air Intake & Output 10/01 0800 10/01 0000 09/30 1600 Intake Total 100 Output Total Balance 100 Intake, IV 100 Physical Exam General Appearance Cooperative, No Acute Distress, alert/awake Skin No Rashes, No Breakdown Skin Temp/Moisture Exam: Warm/Dry HEENT Atraumatic, PERRLA Neck Supple Cardiovascular Regular Rate, Normal S1, Normal S2 Lungs dec breath sounds b/l Abdomen Normal Bowel Sounds, Soft, No Tenderness Extremities No Edema Last 24 Hrs of Labs/Britton: Laboratory Tests 10/01/17 0237: Lactic Acid Cancelled 10/01/17 0049: Anion Gap 10, Estimated GFR 54 L, BUN/Creatinine Ratio 14.0, Glucose 129 H, Lactic Acid 1.2, Calcium 8.6, Total Bilirubin 0.6, Direct Bilirubin 0.1, AST 9 L, ALT 20, Alkaline Phosphatase 100, Troponin I < 0.01, Total Protein 7.0, Albumin 3.2 L, Amylase 86, Lipase 69 10/01/17 0010: CBC w Diff MAN DIFF ORDERED, RBC 4.32, MCV 92.6, MCH 31.2 H, MCHC 33.7, RDW 14.5, MPV 8.3, Gran % 93.0 H, Lymphocytes % 3.6 L, Monocytes % 2.6, Eosinophils % 0.7, Basophils % 0.1, Absolute Granulocytes 22.0 H, Segmented Neutrophils 86 H, Band Neutrophils 7 H, Absolute Lymphocytes 0.9 L, Lymphocytes 2 L, Monocytes 5, Absolute Monocytes 0.6, Absolute Eosinophils 0.2, Absolute Basophils 0, Platelet Estimate INCREASED, Normocytic RBCs VERIFIED, Normochromic RBCs VERIFIED Microbiology 10/01 199 URINE ROUT: Urine Culture - ORD 10/01 48 BLOOD: Blood Culture - RECD 10/01 18 BLOOD: Blood Culture - RECD Assessment/Plan Assessment: 72 yo F with PMH of hypertension, hyperlipidemia, depression, CVA with left sided deficits, seizures was brought to the ED for having productive cough since 1 day and chills at home. History was obtained from the family as the patient has dementia at baseline and was unable to communicate. states that patient have been coughing since yesterday morning. Cough is productive with clear copious sputum. He also reported that patient had a low grade subjective fever at home. Denied any dyspnea or pleuretic chest pain. The also reports that since past two weeks, patient is having a funny urine, greenish brown in color, foul smelling. In the previous records, brown urine has been noted and there was a concern if she has some enterovesical fistula, however urology consult service was not convinced. Patient also had a swallow eval during her previous admission and was recommended Regular (puree) and honey thick liquids. The feeds her with baby food (fruits, protein shake) at home. vitals and labs as above. CXR was clear Plan: Patients fever and leukocytosis could be due to persistent/recurrent UTI v/s PNA. Tmax 101.7. SIRS +ve (leukocytosis and fever) will obtain bc x 2, resp culture, UC and f/up will empirically cover her with ceftriaxone and azithromycin for now given her fever, inc oxygen requirement and dec breath sounds b/l In her previous UTI culture, she has grown pseudomonas tylenol prn for fever. Will also start IV fluids @ 50 cc/hr repeat CBC and bep in am. will continue all her home meds diet: puree and honey thick liquids DVT ppx SC heprin and alps Patient is full code. As Ranked By This Provider Problem List: 1. PNA (pneumonia) Core Measures/Misc (01/23) Acute Coronary Syndrome ACS Diagnosis: No Congestive Heart Failure Congestive Heart Failure Diagnosis No Cerebrovascular Accident CVA/TIA Diagnosis: No VTE (View Protocol) VTE Risk Factors Age>40 No Mechanical VTE Prophylaxis d/t N/A MechProphylax Ordered No VTE Pharm Prophylaxis d/t NA PharmProphylax ordered Sepsis (View protocol) Sepsis Present: Yes If YES complete Sepsis Event Note If YES complete Sepsis Event Note Christophe Sevilla MD 10/01/17 1422: Core Measures/Misc (01/23) Sepsis (View protocol) If YES complete Sepsis Event Note If YES complete Sepsis Event Note Attending MD Review Statement Attending Statement Attending MD Statement: examined this patient, agreed w/resident/PA/IN CLASS SPECIAL EDUCATION TEACHER, discussed with family, reviewed EMR data (avail), discussed with nursing, reviewed images, amended to note Attending Assessment/Plan: Patient was interviewed and examined in the presence of her . Her EMR was reviewed. Problems: -Question pneumonia -Recitation of fever to 101.7F and what WBC of 23,600 -Strip dysphagia due to CVA -Dementia -Depression -Hypertension -Dyslipidemia Plan: -Admit general medicine -Pancultures -intravenous antibiotics per CTA PE protocol -Swallow evaluation -IV fluids if nothing by mouth -Guaifenesin Mucomyst nebs to liquefy secretions -Continue maintenance medications
[2017-10-01 05:56] VITALS: BP 140/74
[2017-10-01 08:43] LABS: ABSOLUTE BASOPHIL COUNT 0 /CUMM (0.0-0.2); ABSOLUTE EOSINOPHIL COUNT 0 /CUMM (0.0-0.7); ABSOLUTE LYMPH COUNT 1.1 /CUMM (1.2-3.4); BASOPHIL % 0 % (0.0-2.0); EOSINOPHIL % 0.1 % (0-5)
[2017-10-01 09:18] LABS: ABSOLUTE GRANULOCYTE CT 17.6 /CUMM (1.4-6.5); ABSOLUTE MONOCYTE COUNT 1.5 /CUMM (0.10-0.60); MEAN CORPUSCULAR HGB 31.8 PG (27.0-31.0); MEAN CORPUSCULAR HGB CONC 34.3 G/DL (33.0-37.0); MEAN CORPUSCULAR VOLUME 92.8 FL (81.0-99.0); MEAN PLATELET VOLUME 8.7 FL (7.4-10.4); PLATELET COUNT 374 /CUMM (130-400); RBC DISTRIBUTION WIDTH 15.2 % (11.5-14.5); RED BLOOD CELL CT 3.66 /CUMM (4.20-5.40); WHITE BLOOD CELL COUNT 20.2 /CUMM (4.8-10.8)
[2017-10-01 10:25] LABS: GRANULOCYTE % 87.2 % (42.2-75.2)
--- NOTE | 2017-10-01 14:17 | Admission Certification ---
Admission Certification Certification Statement - As attending physician, I certify that at the time of - admission, based on clinical presentation, severity of - symptoms, need for further diagnostic testing and - therapeutic interventions, and risk of adverse outcomes - without in-hospital treatment, in my clinical assessment, - this patient requires an acute hospital stay for a minimum - of two nights or longer. I have also considered psychsocial - factors such as support system, advanced age, financial - issues, cognitive issues, and failed out-patient treatments, - past re-admission history, safety of patient, and lack of - compliance as applicable. Specific rationale supporting this admission is: Treatment of patient with parenteral antibiotics for presumed pneumonia.
[2017-10-01 14:46] VITALS: BP 100/50
--- NOTE | 2017-10-01 18:23 | CT SCAN REPORT ---
EXAMINATION: CT ANGIOGRAM CHEST WITH AND WITHOUT CONTRAST (CT PULMONARY ANGIOGRAM FOR PE) CLINICAL INFORMATION: Rule out PE. Shortness of breath. COMPARISON: CT of the chest done on 07/08/2016. TECHNIQUE: Prior to contrast administration, noncontrast localization images were obtained. Subsequently, multidetector volumetric imaging was performed from the thoracic inlet to below the diaphragms following the administration of 95 mL Optiray 320 intravenous contrast. No contrast reaction reported. Sagittal, coronal, and MIP oblique sagittal reformatted images were obtained on the CT workstation, uploaded to PACS, and reviewed. Total exam dose-length product 365.57 mGy-cm. FINDINGS: QUALITY OF STUDY/CONTRAST BOLUS: Satisfactory PULMONARY ARTERIES: No central or segmental pulmonary emboli. THORACIC AORTA: Atherosclerotic changes are noted within the aorta and its branches including coronary arterial calcifications. There is no aneurysm present. LUNG: Interval progression of nonspecific airspace disease is noted at left lower lobe of the lung, may represent evolving pneumonia. Mild nonspecific peribronchial soft tissue thickening is noted around the left main bronchus as well as left lower lobar bronchus, without any definite mass. Minimal airspace disease is noted at right lung base, appear improved since 07/08/2016. PLEURA: No pleural effusion or pneumothorax. MEDIASTINUM: Normal heart size. No hilar or mediastinal lymphadenopathy. No evidence of septal bowing or right heart strain. Small amount of pericardial effusion versus thickening is noted in the posterior left pericardial space, unchanged. CHEST WALL/AXILLA: No axillary or internal mammary lymphadenopathy. OSSEOUS STRUCTURES: No acute or suspicious osseous abnormality. UPPER ABDOMEN: Unremarkable. No reflux of contrast into the hepatic veins to suggest elevated right heart pressures. IMPRESSION: 1. No CT evidence of pulmonary embolism. 2. Interval progression of airspace disease at left lower lobe of the lung. Note is also made of nonspecific circumferential thickening of the left main bronchus extending into the left lower lobe bronchus without any discrete mass. 3. Stable small left posterior pericardial effusion, thickening. VTE: negative.
[2017-10-01 21:39] VITALS: BP 138/70
[2017-10-02 06:58] VITALS: BP 100/60
--- NOTE | 2017-10-02 08:32 | PN- Housestaff ---
See Addendum Subjective Follow-up For: UTI ?PNA Subjective: Urine output 200 cc overnight. Tmax 101.9. Patient noncommunicative. at bedside reports he is concerned with patient decline in health. Patient has a gargling cough with a lot of mucus secretion upon suctioning. Review of Systems Constitutional: Reports: see HPI. Objective Last 24 Hrs of Vital Signs/I&O Vital Signs Date Time Temp Pulse Resp B/P B/P Pulse O2 O2 Flow FiO2 Mean Ox Delivery Rate 10/02 0658 101.9 69 18 100/60 94 Nasal 2.0L Cannula 10/02 0650 101.9 10/02 0000 93 Nasal 2.0L Cannula 10/01 2139 98.7 78 20 138/70 93 10/01 1605 97 Nasal 2.0L Cannula 10/01 1600 93 Nasal 2.0L Cannula 10/01 1446 98.7 72 20 100/50 94 Nasal Cannula Intake & Output 10/02 1600 10/02 0800 10/02 0000 Intake Total 600 469 Output Total Balance 600 469 Intake, IV 600 469 Number 0 Bowel Movements Patient 122 lb 122 lb Weight Weight Bed scale Measurement Method Physical Exam General Appearance: Noncommunicative Cardiovascular: Regular Rate, Normal S1, Normal S2 Lungs: Decreased breath sounds Abdomen: Normal Bowel Sounds, Soft, No Tenderness Extremities: No Edema Current Medications: Current Medications Sig/Claudette Start time Last Medication Dose Route Stop Time Status Admin Acetaminophen 1,000 MG ONCE ONE 10/02 0630 DC 10/02 N/A 1 UNIT IV 10/02 0644 0650 Acetaminophen 650 MG Q6P PRN 10/01 0315 AC PO Acetylcysteine 2 ML BID 10/01 1453 AC INH Albuterol Sulfate 3 ML Q4P PRN 10/01 1100 AC INH Amlodipine Besylate 10 MG QAM 10/01 09 DC 10/01 PO 1007 Atorvastatin Calcium 40 MG QPM 10/01 2100 AC PO Azithromycin 500 MG DAILY 10/01 09 AC 10/02 Sodium Chloride 250 ML IV 0928 Ceftazidime 1,000 MG IQ8 10/02 1600 UNVr IV Ceftriaxone Sodium 1,000 MG DAILY 10/01 0900 DC 10/02 IV 0926 Clonazepam 0.5 MG BID 10/01 0900 DC 10/01 PO 10/08 0859 1013 Cyanocobalamin 1,000 MCG DAILY 10/01 0900 DC 10/01 PO 1013 Dextrose/Sodium 1,000 ML Q13H 10/01 1500 AC 10/02 Chloride IV 0521 Donepezil HCl 10 MG QPM 10/01 2100 DC PO Fluticasone 2 SPRAY BID PRN 10/01 0300 AC Propionate BRANDON Haloperidol 1 MG BID 10/01 0900 DC 10/01 PO 1007 Heparin Sodium 5,000 UNIT Q8 10/01 0600 AC 10/02 (Porcine) SC 0522 Valproate Sodium 250 MG Q12 10/01 2300 AC 10/02 Sodium Chloride 50 ML IV 0928 Valproic Acid 250 MG BID 10/01 0900 DC 10/01 PO 1005 Last 24 Hrs of Lab/Britton Results Last 24 Hrs of Labs/Mics: Laboratory Tests 10/02/17 0655: Anion Gap 12, Estimated GFR > 60, BUN/Creatinine Ratio 15.6, CBC w Diff NO MAN DIFF REQ, RBC 3.38 L, MCV 93.7, MCH 31.7 H, MCHC 33.9, RDW 14.8 H, MPV 8.8, Gran % 86.3 H, Lymphocytes % 6.1 L, Monocytes % 7.6, Eosinophils % 0, Basophils % 0, Absolute Granulocytes 18.2 H, Absolute Lymphocytes 1.3, Absolute Monocytes 1.6 H, Absolute Eosinophils 0, Absolute Basophils 0 10/01/17 1553: Anion Gap 12, Estimated GFR > 60, BUN/Creatinine Ratio 17.8, Troponin I < 0.01 Microbiology 10/01 1330 LOWER RESP: Respiratory Culture - RES GRAM NEGATIVE RODS 10/01 133 LOWER RESP: Gram Stain - RES Assessment/Plan Assessment: 72 yo F with PMH of hypertension, hyperlipidemia, depression, CVA with left sided deficits, seizures was brought to the ED for having productive cough since 1 day and chills at home. History was obtained from the family as the patient has dementia at baseline and was unable to communicate. Problem list: ?PNA UTI Plan: TRC/nebs PRN Urine cultures grew GNR will discontinue ceftriaxone and changed to Ceftazidime for Pseudomonas coverage Continue azithromycin tylenol prn for fever Continue D5W 1/2NS @ 75 cc/hr continue all her home meds: statin, amlodipine, fluticasone diet: NPO, patient failed swallow eval DVT ppx SC heprin and alps Patient is full code. Problem List: 1. PNA (pneumonia) 2. UTI (urinary tract infection) Pain Ratin Pain Location: NA Pain Goal: Remain pain free Pain Plan: NA Tomorrow's Labs & Rationales: cbc, bep
[2017-10-02 09:09] LABS: ABSOLUTE BASOPHIL COUNT 0 /CUMM (0.0-0.2); ABSOLUTE EOSINOPHIL COUNT 0 /CUMM (0.0-0.7); ABSOLUTE GRANULOCYTE CT 18.2 /CUMM (1.4-6.5); ABSOLUTE LYMPH COUNT 1.3 /CUMM (1.2-3.4); ABSOLUTE MONOCYTE COUNT 1.6 /CUMM (0.10-0.60); BASOPHIL % 0 % (0.0-2.0); EOSINOPHIL % 0 % (0-5); HEMATOCRIT 31.6 % (37-47); MEAN CORPUSCULAR HGB 31.7 PG (27.0-31.0); MEAN CORPUSCULAR HGB CONC 33.9 G/DL (33.0-37.0); MEAN CORPUSCULAR VOLUME 93.7 FL (81.0-99.0); MEAN PLATELET VOLUME 8.8 FL (7.4-10.4); PLATELET COUNT 326 /CUMM (130-400); RBC DISTRIBUTION WIDTH 14.8 % (11.5-14.5); RED BLOOD CELL CT 3.38 /CUMM (4.20-5.40); WHITE BLOOD CELL COUNT 21.1 /CUMM (4.8-10.8)
[2017-10-02 09:54] LABS: GRANULOCYTE % 86.3 % (42.2-75.2)
[2017-10-02 14:26] VITALS: BP 100/62
[2017-10-02 22:16] VITALS: BP 136/60
[2017-10-03 06:02] VITALS: BP 130/60
--- NOTE | 2017-10-03 08:47 | PN- Housestaff ---
Christina Bryant 10/03/17 0847: Subjective Follow-up For: UTI ?PNA Hypokalemia Subjective: Tmax 99.1 overnight. Patient's UOP remains low. Patient with copious mucus secretions upon suctioning and requiring 2LNC. Review of Systems Constitutional: Reports: see HPI. Objective Last 24 Hrs of Vital Signs/I&O Vital Signs Date Time Temp Pulse Resp B/P B/P Pulse O2 O2 Flow FiO2 Mean Ox Delivery Rate 10/03 0940 94 Nasal 2.0L Cannula 10/03 0800 Nasal 2.0L Cannula 10/03 0602 97.7 72 22 130/60 95 Nasal 2.0L Cannula 10/03 0000 Nasal 2.0L Cannula 10/02 2216 99.1 70 20 136/60 96 10/02 2200 98 Nasal 2.0L Cannula 10/02 1426 98.9 72 20 100/62 95 Nasal Cannula Intake & Output 10/03 1600 10/03 0800 10/03 0000 Intake Total 1010 1130 Output Total Balance 1010 1130 Intake, IV 650 650 Intake, Oral 360 480 Patient 127 lb Weight Physical Exam General Appearance: Noncommunicative Cardiovascular: Regular Rate, Normal S1, Normal S2 Lungs: Decreased breath sounds Abdomen: Normal Bowel Sounds, Soft, No Tenderness Current Medications: Current Medications Sig/Claudette Start time Last Medication Dose Route Stop Time Status Admin Acetaminophen 650 MG Q6P PRN 10/01 0315 AC PO Acetylcysteine 2 ML BID 10/01 1453 DC INH Albuterol Sulfate 3 ML Q4P PRN 10/01 1100 AC INH Ampicillin Sodium/ 1,500 MG Q6 10/03 1200 AC 10/03 Sulbactam Sodium IV 1145 Sodium Chloride 100 ML Atorvastatin Calcium 40 MG QPM 10/01 2100 AC PO Azithromycin 500 MG DAILY 10/01 0900 DC 10/03 Sodium Chloride 250 ML IV 0848 Ceftazidime 1,000 MG Q12H 10/02 1600 DC 10/03 IV 0527 Dextrose/Sodium 1,000 ML Q13H 10/01 1500 AC 10/02 Chloride IV 2134 Fluticasone 2 SPRAY BID PRN 10/01 0300 AC Propionate BRANDON Heparin Sodium 5,000 UNIT Q8 10/01 0600 AC 10/03 (Porcine) SC 0527 Potassium Chloride 10 MEQ Q1H 10/03 1015 DC 10/03 IV 10/03 1116 1138 Potassium Chloride 20 MEQ ONCE ONE 10/02 1230 CAN PO 10/02 1231 Valproate Sodium 250 MG Q12 10/01 2300 AC 10/03 Sodium Chloride 50 ML IV 1028 Last 24 Hrs of Lab/Britton Results Last 24 Hrs of Labs/Mics: Laboratory Tests 10/03/17 0740: Anion Gap 11, Estimated GFR > 60, BUN/Creatinine Ratio 8.8, CBC w Diff NO MAN DIFF REQ, RBC 3.20 L, MCV 93.2, MCH 31.3 H, MCHC 33.6, RDW 14.8 H, MPV 9.3, Gran % 82.0 H, Lymphocytes % 9.8 L, Monocytes % 6.5, Eosinophils % 1.4, Basophils % 0.3, Absolute Granulocytes 7.4 H, Absolute Lymphocytes 0.9 L, Absolute Monocytes 0.6, Absolute Eosinophils 0.1, Absolute Basophils 0 Assessment/Plan Assessment: 72 yo F with PMH of hypertension, hyperlipidemia, depression, CVA with left sided deficits, seizures was brought to the ED for having productive cough since 1 day and chills at home. History was obtained from the family as the patient has dementia at baseline and was unable to communicate. Problem list: ?PNA UTI Hypokalemia Plan: TRC/nebs PRN Urine cultures grew GNR - Klebsiella will discontinue Ceftazidime and Azithromycin and start IV Unasyn tylenol prn for fever Continue D5W 1/2NS @ 75 cc/hr Monitor and replete potassium continue all her home meds: statin, amlodipine, fluticasone diet: NPO, patient failed swallow eval DVT ppx SC heprin and alps Patient is full code. Problem List: 1. PNA (pneumonia) Pain Ratin Pain Location: NA Pain Goal: Remain pain free Pain Plan: NA Tomorrow's Labs & Rationales: Christophe Hope MD 10/03/17 0959: Attending MD Review Statement Attending Statement Attending MD Statement: examined this patient, discuss w/resident/PA/MAILING SPECIALIST, discussed with family, reviewed EMR data (avail), amended to note Attending Assessment/Plan: Mrs. Gonzalez was examined and her was interviewed her she is nonverbal. Her EMR was reviewed. Tmax 99.1 heart rate 7080 respiration 18-22 systolic BP 100 to 130 SaO2 to mid to upper 90s on 2 L via nasal cannula She is in no acute distress. Pulmonary exam reveals fine rhonchi Cardiac exam reveals regular rate and rhythm WBC are now normal at 9000 H&H 10/29.8 294,000 platelets potassium 3.3 sputum culture with light growth of Klebsiella oxytoca We have been treating her CAP with ceftazidime. At this time we can switch to ampicillin/sulbactam to cover her organism. We will continue to follow her blood cultures and WBC. She has developed mild hypokalemia. We should correct this with the addition of potassium to her intravenous fluids. Her continuing her maintenance medications.
[2017-10-03 09:20] LABS: ABSOLUTE BASOPHIL COUNT 0 /CUMM (0.0-0.2); ABSOLUTE EOSINOPHIL COUNT 0.1 /CUMM (0.0-0.7); ABSOLUTE GRANULOCYTE CT 7.4 /CUMM (1.4-6.5); ABSOLUTE MONOCYTE COUNT 0.6 /CUMM (0.10-0.60); PLATELET COUNT 294 /CUMM (130-400)
[2017-10-03 09:42] LABS: ABSOLUTE LYMPH COUNT 0.9 /CUMM (1.2-3.4); BASOPHIL % 0.3 % (0.0-2.0); EOSINOPHIL % 1.4 % (0-5); HEMATOCRIT 29.8 % (37-47); MEAN CORPUSCULAR HGB 31.3 PG (27.0-31.0); MEAN CORPUSCULAR HGB CONC 33.6 G/DL (33.0-37.0); MEAN CORPUSCULAR VOLUME 93.2 FL (81.0-99.0); MEAN PLATELET VOLUME 9.3 FL (7.4-10.4); RBC DISTRIBUTION WIDTH 14.8 % (11.5-14.5)
[2017-10-03 15:02] VITALS: BP 130/75
[2017-10-03 21:59] VITALS: BP 122/60
[2017-10-04 07:12] VITALS: BP 112/58
--- NOTE | 2017-10-04 07:21 | PN- Housestaff ---
Subjective Follow-up For: UTI Subjective: Patient seen and examined at bedside. No overnight events. Patient still has copious secretions requiring suctioning. Patient is on 2 L via nasal cannula. She is alert oriented 1. Able to respond to some of the questions. Review of Systems Constitutional: Reports: no symptoms, see HPI. Objective Last 24 Hrs of Vital Signs/I&O Vital Signs Date Time Temp Pulse Resp B/P B/P Pulse O2 O2 Flow FiO2 Mean Ox Delivery Rate 10/04 0712 98.2 66 20 112/58 95 Nasal 2.0L Cannula 10/04 0000 98 Nasal 2.0L Cannula 10/03 2159 97.9 60 20 122/60 98 10/03 1600 Nasal 2.0L Cannula 10/03 1502 98.2 75 21 130/75 96 Nasal Cannula 10/03 0940 94 Nasal 2.0L Cannula Intake & Output 10/04 1600 10/04 0800 10/04 0000 Intake Total 525 300 Output Total Balance 525 300 Intake, IV 525 300 Intake, Oral 0 Number 0 Bowel Movements Patient 129 lb Weight Weight Bed scale Measurement Method Physical Exam General Appearance: Alert, Cooperative, No Acute Distress Cardiovascular: Normal S1, Normal S2, No Murmurs Lungs: Clear to Auscultation Abdomen: Soft, No Tenderness, No Hepatospenomegaly Neurological: Sensation Intact Extremities: No Cyanosis, No Edema, Normal Pulses Current Medications: Current Medications Sig/Claudette Start time Last Medication Dose Route Stop Time Status Admin Acetaminophen 1,000 MG Q6H PRN 10/04 0930 UNVr N/A 1 UNIT IV Acetaminophen 650 MG Q6P PRN 10/01 0315 DC PO Albuterol Sulfate 3 ML Q4P PRN 10/01 1100 AC INH Ampicillin Sodium/ 1,500 MG Q6 10/03 1200 AC 10/04 Sulbactam Sodium IV 0512 Sodium Chloride 100 ML Atorvastatin Calcium 40 MG QPM 10/01 2100 AC PO Azithromycin 500 MG DAILY 10/01 0900 DC 10/03 Sodium Chloride 250 ML IV 0848 Ceftazidime 1,000 MG Q12H 10/02 1600 DC 10/03 IV 0527 Dextrose/Sodium 1,000 ML Q13H 10/01 1500 AC 10/04 Chloride IV 0815 Fluticasone 2 SPRAY BID PRN 10/01 0300 AC Propionate BRANDON Heparin Sodium 5,000 UNIT Q8 10/01 0600 AC 10/04 (Porcine) SC 0511 Magnesium Oxide 400 MG BID 10/03 1228 DC PO 10/04 2101 Magnesium Sulfate 1 GM Q2H 10/03 1430 DC 10/03 Dextrose/Water 100 ML IV 10/03 1829 1911 Potassium Chloride 20 MEQ ONCE ONE 10/04 0915 CAN IV 10/04 0916 Potassium Chloride 10 MEQ ONCE ONE 10/04 0915 DC IV 10/04 0916 Potassium Chloride 10 MEQ ONCE ONE 10/04 0915 DC IV 10/04 0916 Potassium Chloride 10 MEQ Q1H 10/03 1015 DC 10/03 IV 10/03 1116 1350 Valproate Sodium 250 MG Q12 10/01 2300 AC 10/03 Sodium Chloride 50 ML IV 2038 Last 24 Hrs of Lab/Britton Results Last 24 Hrs of Labs/Mics: Laboratory Tests 10/04/17 0748: Anion Gap 9, Estimated GFR > 60, BUN/Creatinine Ratio 2.9 L Assessment/Plan Assessment: 72 yo F with PMH of hypertension, hyperlipidemia, depression, CVA with left sided deficits, seizures was brought to the ED for having productive cough since 1 day and chills at home. History was obtained from the family as the patient has dementia at baseline and was unable to communicate. Problem list: UTI Hypokalemia * Patient's urine culture growing Klebsiella and patient is on IV Unasyn for the same. * Patient failed a swallow eval. We will have a repeat swallow eval and if possible barium Swallow. Last time when the patient got admitted was evaluated by swallow eval and recommended honey and pured thickened diet. At home patient's gives baby feed like fruits and protein shake. Patient is on IV fluids at 75 mL per hour. * Patient has copious secretions. Patient is being suctioned as needed. According to the nurse due to deep suctioning patient had pink frothy sputum. We will continue current management. * Patient has hypokalemia. Today potassium is 3.2. We will replace the same. * We will continue all her home medications as IV * Patient is full code * DVT prophylaxis-subcutaneous heparin Problem List: 1. UTI (urinary tract infection) Pain Ratin Pain Location: none Pain Goal: Remain pain free Pain Plan: tylenol Tomorrow's Labs & Rationales: robin c,bep
--- NOTE | 2017-10-04 10:20 | PN- Att Addend ---
Attending Addendum Attending Brief Note Events over the weekend noted. Patient failed bedside swallowing evaluations still sounds very congested and after suctioning a little pinkish material being aspirated probably from irritation. Vital signs are stable no fever. Still some rhonchi on lung auscultation Patient's aspirin at the bedside. Had in the past she had a feeding tube for 2 years and depending on the results of the modified swallowing evaluation will have to discuss with the patient would benefit from a feeding tube Intake & Output 10/04 1600 10/04 0400 10/03 1600 10/03 0400 10/02 1600 10/02 0400 Intake Total 230 525 7226 1130 600 469 Output Total Balance 320 204 2877 1130 600 469 Intake, IV 041 286 5183 650 600 469 Intake, Oral 0 360 480 Number 0 0 Bowel Movements Patient 129 lb 127 lb 122 lb Weight Weight Bed scale Bed scale Measurement Method Current Medications Sig/Claudette Start time Last Medication Dose Route Stop Time Status Admin Acetaminophen 1,000 MG Q6H PRN 10/04 0930 AC N/A 1 UNIT IV 10/05 0929 Acetaminophen 650 MG Q6P PRN 10/01 0315 DC PO Albuterol Sulfate 3 ML Q4P PRN 10/01 1100 AC INH Ampicillin Sodium/ 1,500 MG Q6 10/03 1200 AC 10/04 Sulbactam Sodium IV 0512 Sodium Chloride 100 ML Atorvastatin Calcium 40 MG QPM 10/01 2100 AC PO Dextrose/Sodium 1,000 ML Q13H 10/01 1500 AC 10/04 Chloride IV 0815 Fluticasone 2 SPRAY BID PRN 10/01 0300 AC Propionate BRANDON Heparin Sodium 5,000 UNIT Q8 10/01 0600 AC 10/04 (Porcine) SC 0511 Magnesium Oxide 400 MG BID 10/03 1228 DC PO 10/04 2101 Magnesium Sulfate 1 GM Q2H 10/03 1430 DC 10/03 Dextrose/Water 100 ML IV 10/03 1829 1911 Potassium Chloride 20 MEQ ONCE ONE 10/04 0915 CAN IV 10/04 0916 Potassium Chloride 10 MEQ ONCE ONE 10/04 0915 DC IV 10/04 0916 Potassium Chloride 10 MEQ ONCE ONE 10/04 0815 DC IV 10/04 0916 Potassium Chloride 10 MEQ Q1H 10/03 1015 DC 10/03 IV 10/03 1116 1350 Valproate Sodium 250 MG Q12 10/01 2300 AC 10/04 Sodium Chloride 50 ML IV 0944 Laboratory Tests 10/04/17 0748: Anion Gap 9, Estimated GFR > 60, BUN/Creatinine Ratio 2.9 L 10/03/17 0740: Anion Gap 11, Estimated GFR > 60, BUN/Creatinine Ratio 8.8, Phosphorus 3.3, Magnesium 1.7, CBC w Diff NO MAN DIFF REQ, RBC 3.20 L, MCV 93.2, MCH 31.3 H, MCHC 33.6, RDW 14.8 H, MPV 9.3, Gran % 82.0 H, Lymphocytes % 9.8 L, Monocytes % 6.5, Eosinophils % 1.4, Basophils % 0.3, Absolute Granulocytes 7.4 H, Absolute Lymphocytes 0.9 L, Absolute Monocytes 0.6, Absolute Eosinophils 0.1, Absolute Basophils 0 10/02/17 0655: Anion Gap 12, Estimated GFR > 60, BUN/Creatinine Ratio 15.6, CBC w Diff NO MAN DIFF REQ, RBC 3.38 L, MCV 93.7, MCH 31.7 H, MCHC 33.9, RDW 14.8 H, MPV 8.8, Gran % 86.3 H, Lymphocytes % 6.1 L, Monocytes % 7.6, Eosinophils % 0, Basophils % 0, Absolute Granulocytes 18.2 H, Absolute Lymphocytes 1.3, Absolute Monocytes 1.6 H, Absolute Eosinophils 0, Absolute Basophils 0 10/01/17 1553: Anion Gap 12, Estimated GFR > 60, BUN/Creatinine Ratio 17.8, Troponin I < 0.01 Microbiology 10/01 1329 LOWER RESP: Respiratory Culture - COMP KLEBSIELLA OXYTOCA 10/01 1329 LOWER RESP: Gram Stain - COMP Microbiology 10/01 1329 LOWER RESP: Respiratory Culture - COMP KLEBSIELLA OXYTOCA 10/01 1329 LOWER RESP: Gram Stain - COMP Vital Signs Date Time Temp Pulse Resp B/P B/P Pulse O2 O2 Flow FiO2 Mean Ox Delivery Rate 10/04 0712 98.2 66 20 112/58 95 Nasal 2.0L Cannula 10/04 0000 98 Nasal 2.0L Cannula 10/03 2159 97.9 60 20 122/60 98 10/03 1600 Nasal 2.0L Cannula 10/03 1502 98.2 75 21 130/75 96 Nasal Cannula
[2017-10-04 15:16] VITALS: BP 90/58
--- NOTE | 2017-10-04 15:40 | RADIOLOGY REPORT ---
EXAMINATION: XR MODIFIED BARIUM SWALLOW CLINICAL INFORMATION: Failed bedside swallow evaluation. Aspiration? COMPARISON: None. TECHNIQUE: Fluoroscopic assistance was provided during a modified barium swallow performed in cooperation with the speech pathology service. FLUOROSCOPY TIME: 1 minute NUMBER OF SAVED IMAGES: No spot fluoroscopy images were acquired. Instead, only screen captured images were saved. FINDINGS: The modified barium swallow examination was performed in cooperation with the speech pathologist using dynamic fluoroscopic imaging in a lateral projection. The patient's swallowing function was observed during administration of apple sauce puree, honey, nectar and thin barium contrast. With oral intake of the thin barium contrast, there was some spillage of contrast material to the level of the piriform sinuses. Trace tracheal penetration was observed with thin barium contrast. No overt aspiration. Please refer to the report of findings (and recommendations) provided by the speech pathology service. IMPRESSION: An episode of tracheal penetration of thin barium contrast was observed. Please refer to the speech pathology report.
[2017-10-04 22:51] VITALS: BP 190/70
[2017-10-04 23:11] VITALS: BP 140/64
[2017-10-05 06:32] VITALS: BP 150/70
--- NOTE | 2017-10-05 07:06 | PN- Housestaff ---
Subjective Follow-up For: Aspiration pneumonia Subjective: Patient seen and examined at bedside. No overnight events. Patient lying in her bed with mild secretion via mouth. Patient is on 2 L of oxygen. Able to answer some of the questions. Review of Systems Constitutional: Reports: no symptoms, see HPI. Objective Last 24 Hrs of Vital Signs/I&O Vital Signs Date Time Temp Pulse Resp B/P B/P Pulse O2 O2 Flow FiO2 Mean Ox Delivery Rate 10/05 0840 99 Nasal 1.0L Cannula 10/05 0632 97.3 47 18 150/70 99 Room Air 10/05 0000 96 Nasal 2.0L Cannula 10/04 2311 56 140/64 10/04 2251 98.9 60 20 190/70 96 Room Air 10/04 1648 99 Nasal 2.0L Cannula 10/04 1600 96 Nasal 2.0L Cannula 10/04 1516 98.5 54 20 90/58 99 10/04 1333 94 Nasal 2.0L Cannula Intake & Output 10/05 1600 10/05 0800 10/05 0000 Intake Total 300 150 Output Total Balance 300 150 Intake, IV 300 150 Number 0 Bowel Movements Patient 128 lb Weight Physical Exam General Appearance: Alert, Cooperative, No Acute Distress Cardiovascular: Regular Rate, Normal S1, Normal S2, No Murmurs Lungs: Clear to Auscultation Abdomen: Soft, No Tenderness, No Hepatospenomegaly Extremities: No Edema Current Medications: Current Medications Sig/Claudette Start time Last Medication Dose Route Stop Time Status Admin Acetaminophen 1,000 MG Q6H PRN 10/04 0930 DC N/A 1 UNIT IV 10/05 0929 Albuterol Sulfate 3 ML Q4P PRN 10/01 1100 AC INH Ampicillin Sodium/ 1,500 MG Q6 10/03 1200 AC 10/05 Sulbactam Sodium IV 0541 Sodium Chloride 100 ML Atorvastatin Calcium 40 MG QPM 10/01 2100 AC 10/04 PO 2131 Dextrose/Sodium 1,000 ML Q13H 10/01 1500 DC 10/04 Chloride IV 0815 Fluticasone 2 SPRAY BID PRN 10/01 0300 AC Propionate BRANDON Heparin Sodium 5,000 UNIT Q8 10/01 0600 AC 10/05 (Porcine) SC 0541 Valproate Sodium 250 MG Q12 10/01 2300 AC 10/04 Sodium Chloride 50 ML IV 2132 Last 24 Hrs of Lab/Britton Results Last 24 Hrs of Labs/Mics: Laboratory Tests 10/05/17 0810: Anion Gap 10, Estimated GFR > 60, BUN/Creatinine Ratio 2.5 L, CBC w Diff NO MAN DIFF REQ, RBC 3.31 L, MCV 92.7, MCH 30.7, MCHC 33.1, RDW 14.6 H, MPV 8.9, Gran % 79.5 H, Lymphocytes % 11.5 L, Monocytes % 7.3, Eosinophils % 1.4, Basophils % 0.3, Absolute Granulocytes 6.3, Absolute Lymphocytes 0.9 L, Absolute Monocytes 0.6, Absolute Eosinophils 0.1, Absolute Basophils 0 Assessment/Plan Assessment: 72 yo F with PMH of hypertension, hyperlipidemia, depression, CVA with left sided deficits, seizures was brought to the ED for having productive cough since 1 day and chills at home. History was obtained from the family as the patient has dementia at baseline and was unable to communicate. Problem list: UTI Hypokalemia * Patient's sputum culture growing Klebsiella and patient is on IV Unasyn for the same. * Patient initially failed swallow eval, and repeat swallow eval on day 3 she passed now she is on regular daily and nectar diet. At home patient's gives baby feed like fruits and protein shake. Patient is on IV fluids at 50 mL per hour. We will discontinue IV fluids. * Patient has copious secretions. Patient is being suctioned as needed. We will continue current management. * Patient has hypokalemia--resolved today potassium 3.5.. * We will continue all her home medications. * Patient is full code * DVT prophylaxis-subcutaneous heparin Problem List: 1. PNA (pneumonia) Pain Ratin Pain Location: none Pain Goal: Remain pain free Pain Plan: tylenol Tomorrow's Labs & Rationales: bep,cbc
[2017-10-05 09:12] LABS: ABSOLUTE BASOPHIL COUNT 0 /CUMM (0.0-0.2); ABSOLUTE EOSINOPHIL COUNT 0.1 /CUMM (0.0-0.7); ABSOLUTE GRANULOCYTE CT 6.3 /CUMM (1.4-6.5); ABSOLUTE LYMPH COUNT 0.9 /CUMM (1.2-3.4); ABSOLUTE MONOCYTE COUNT 0.6 /CUMM (0.10-0.60); BASOPHIL % 0.3 % (0.0-2.0); EOSINOPHIL % 1.4 % (0-5); GRANULOCYTE % 79.5 % (42.2-75.2); HEMATOCRIT 30.7 % (37-47); MEAN CORPUSCULAR HGB 30.7 PG (27.0-31.0); MEAN CORPUSCULAR HGB CONC 33.1 G/DL (33.0-37.0); MEAN CORPUSCULAR VOLUME 92.7 FL (81.0-99.0); MEAN PLATELET VOLUME 8.9 FL (7.4-10.4); PLATELET COUNT 314 /CUMM (130-400); RBC DISTRIBUTION WIDTH 14.6 % (11.5-14.5); RED BLOOD CELL CT 3.31 /CUMM (4.20-5.40)
--- NOTE | 2017-10-05 10:27 | PN- Att Addend ---
Attending Addendum Attending Brief Note Seems less congested and she passed a modified barium swallow after that she tolerated her diet well Vital signs are stable no fever no new changes on physical will monitor today make sure she does not have any episodes of aspiration still take aspiration precautions. Is stable start disposition plans in the morning. Intake & Output 10/05 1600 10/05 0400 10/04 1600 10/04 0400 10/03 1600 10/03 0400 Intake Total 300 150 641 433 0612 1130 Output Total Balance 300 150 293 192 1994 1130 Intake, IV 300 150 913 405 7475 650 Intake, Oral 0 360 480 Number 0 0 Bowel Movements Patient 128 lb 130 lb 127 lb Weight Weight Bed scale Measurement Method Current Medications Sig/Claudette Start time Last Medication Dose Route Stop Time Status Admin Acetaminophen 1,000 MG Q6H PRN 10/04 0930 DC N/A 1 UNIT IV 10/05 0929 Acetylcysteine 2 ML BID 10/05 1018 AC INH Albuterol Sulfate 3 ML Q4P PRN 10/01 1100 AC INH Ampicillin Sodium/ 1,500 MG Q6 10/03 1200 AC 10/05 Sulbactam Sodium IV 0541 Sodium Chloride 100 ML Atorvastatin Calcium 40 MG QPM 10/01 2100 AC 10/04 PO 2131 Dextrose/Sodium 1,000 ML Q13H 10/01 1500 DC 10/04 Chloride IV 0815 Fluticasone 2 SPRAY BID PRN 10/01 0300 AC Propionate BRANDON Heparin Sodium 5,000 UNIT Q8 10/01 0600 AC 10/05 (Porcine) SC 0541 Valproate Sodium 250 MG Q12 10/01 2300 AC 10/05 Sodium Chloride 50 ML IV 0952 Laboratory Tests 10/05/17 0810: Anion Gap 10, Estimated GFR > 60, BUN/Creatinine Ratio 2.5 L, CBC w Diff NO MAN DIFF REQ, RBC 3.31 L, MCV 92.7, MCH 30.7, MCHC 33.1, RDW 14.6 H, MPV 8.9, Gran % 79.5 H, Lymphocytes % 11.5 L, Monocytes % 7.3, Eosinophils % 1.4, Basophils % 0.3, Absolute Granulocytes 6.3, Absolute Lymphocytes 0.9 L, Absolute Monocytes 0.6, Absolute Eosinophils 0.1, Absolute Basophils 0 10/04/17 0748: Anion Gap 9, Estimated GFR > 60, BUN/Creatinine Ratio 2.9 L 10/03/17 0740: Anion Gap 11, Estimated GFR > 60, BUN/Creatinine Ratio 8.8, Phosphorus 3.3, Magnesium 1.7, CBC w Diff NO MAN DIFF REQ, RBC 3.20 L, MCV 93.2, MCH 31.3 H, MCHC 33.6, RDW 14.8 H, MPV 9.3, Gran % 82.0 H, Lymphocytes % 9.8 L, Monocytes % 6.5, Eosinophils % 1.4, Basophils % 0.3, Absolute Granulocytes 7.4 H, Absolute Lymphocytes 0.9 L, Absolute Monocytes 0.6, Absolute Eosinophils 0.1, Absolute Basophils 0 Vital Signs Date Time Temp Pulse Resp B/P B/P Pulse O2 O2 Flow FiO2 Mean Ox Delivery Rate 10/05 0840 99 Nasal 1.0L Cannula 10/05 0632 97.3 47 18 150/70 99 Room Air 10/05 0000 96 Nasal 2.0L Cannula 10/04 2311 56 140/64 10/04 2251 98.9 60 20 190/70 96 Room Air 10/04 1648 99 Nasal 2.0L Cannula 10/04 1600 96 Nasal 2.0L Cannula 10/04 1516 98.5 54 20 90/58 99 10/04 1333 94 Nasal 2.0L Cannula
[2017-10-05 14:49] VITALS: BP 120/60
[2017-10-05 21:55] VITALS: BP 112/58
[2017-10-06 07:01] VITALS: BP 124/58
--- NOTE | 2017-10-06 07:04 | PN- Housestaff ---
Subjective Follow-up For: Aspiration pneumonia Subjective: Patient seen and examined at bedside. No overnight events. Patient is more aawake and alert and able to follow some of the commands. Review of Systems Constitutional: Reports: no symptoms, see HPI. Objective Last 24 Hrs of Vital Signs/I&O Vital Signs Date Time Temp Pulse Resp B/P B/P Pulse O2 O2 Flow FiO2 Mean Ox Delivery Rate 10/06 0701 98.9 51 20 124/58 94 Nasal Cannula 10/06 0000 Nasal 1.0L Cannula 10/05 2155 99.5 59 20 112/58 97 Nasal Cannula 10/05 1600 94 Nasal 1.0L Cannula 10/05 1449 98.0 68 24 120/60 93 10/05 0840 99 Nasal 1.0L Cannula Intake & Output 10/06 1600 10/06 0800 10/06 0000 Intake Total 120 150 Output Total Balance 120 150 Intake, IV 120 150 Patient 133 lb Weight Physical Exam General Appearance: Alert, Oriented X3, Cooperative, No Acute Distress Cardiovascular: Regular Rate, Normal S1, Normal S2, No Murmurs Lungs: B/L RONCHI Abdomen: Soft, No Tenderness, No Hepatospenomegaly Neurological: Normal Speech Extremities: No Edema Current Medications: Current Medications Sig/Claudette Start time Last Medication Dose Route Stop Time Status Admin Acetaminophen 1,000 MG Q6H PRN 10/04 0930 DC N/A 1 UNIT IV 10/05 0929 Acetylcysteine 2 ML BID 10/05 1018 AC INH Albuterol Sulfate 3 ML Q4P PRN 10/01 1100 AC INH Ampicillin Sodium/ 1,500 MG Q6 10/03 1200 AC 10/06 Sulbactam Sodium IV 0556 Sodium Chloride 100 ML Atorvastatin Calcium 40 MG QPM 10/01 2100 AC 10/05 PO 2015 Dextrose/Sodium 1,000 ML Q13H 10/01 1500 DC 10/04 Chloride IV 0815 Docusate Sodium 100 MG BID 10/06 0900 AC PO Fluticasone 2 SPRAY BID PRN 10/01 0300 AC Propionate BRANDON Heparin Sodium 5,000 UNIT Q8 10/01 0600 AC 10/06 (Porcine) SC 0556 Patient Medication 1 ED ONE ONE 10/05 1115 DC Teaching ED 10/05 1116 Polyethylene Glycol 17 GM DAILY 10/06 0900 AC PO Senna/Docusate Sodium 1 TAB BID 10/06 09 AC PO Valproate Sodium 250 MG Q12 10/01 2300 AC 10/05 Sodium Chloride 50 ML IV 2014 Last 24 Hrs of Lab/Britton Results Last 24 Hrs of Labs/Mics: Laboratory Tests 10/06/17 0756: Sodium Pending, Potassium Pending, Chloride Pending, Carbon Dioxide Pending, Anion Gap Pending, BUN Pending, Creatinine Pending, BUN/Creatinine Ratio Pending , CBC w Diff Pending, WBC Pending, RBC Pending, Hgb Pending, Hct Pending, MCV Pending, MCH Pending, MCHC Pending, RDW Pending, Plt Count Pending, MPV Pending 10/05/17 0810: Anion Gap 10, Estimated GFR > 60, BUN/Creatinine Ratio 2.5 L, CBC w Diff NO MAN DIFF REQ, RBC 3.31 L, MCV 92.7, MCH 30.7, MCHC 33.1, RDW 14.6 H, MPV 8.9, Gran % 79.5 H, Lymphocytes % 11.5 L, Monocytes % 7.3, Eosinophils % 1.4, Basophils % 0.3, Absolute Granulocytes 6.3, Absolute Lymphocytes 0.9 L, Absolute Monocytes 0.6, Absolute Eosinophils 0.1, Absolute Basophils 0 Assessment/Plan Assessment: 72 yo F with PMH of hypertension, hyperlipidemia, depression, CVA with left sided deficits, seizures was brought to the ED for having productive cough since 1 day and chills at home. History was obtained from the family as the patient has dementia at baseline and was unable to communicate. Problem list: Aspiration pneumonia Hypokalemia * Patient's sputum culture growing Klebsiella and patient is on IV Unasyn for the same. We will send her home with Augmentin to complete a 7 days course for aspiration pneumonia. Patient is able to tolerate feeds. We'll follow with today's lab. * We will continue all her home medications. * Patient is full code * DVT prophylaxis-subcutaneous heparin Problem List: 1. PNA (pneumonia) Pain Ratin Pain Location: NONE Pain Goal: Remain pain free Pain Plan: TYLENOL Tomorrow's Labs & Rationales: NONE
--- NOTE | 2017-10-06 07:38 | Patient Discharge Instructions ---
Discharge Instructions General Discharge Information You were seen/treated for: Aspiration pneumonia Watch for these problems: In case of cough, chest pain, shortness of breath, nausea, vomiting please go to the nearest emergency room Special Instructions: Please follow-up with your primary care provider within 1-2 weeks of discharge Diet Continue normal diet: No Recommended Diet: puree and honey diet Activity Full Activity/No Limits: No Activity Self Limited: Yes Acute Coronary Syndrome Inclusion Criteria At DC or during hospital stay patient has or had the following: ACS DIAGNOSIS No Discharge Core Measures Meds if any: Prescribed or Continued at Discharge Meds if any: NOT Prescribed or Continued at Discharge Congestive Heart Failure Inclusion Criteria At DC or during hospital stay patient has or had the following: CHF DIAGNOSIS No Discharge Core Measures Meds if any: Prescribed or Continued at Discharge Meds if any: NOT Prescribed or Continued at Discharge Cerebrovascular accident Inclusion Criteria At DC or during hospital stay patient has or had the following: CVA/TIA Diagnosis No Discharge Core Measures Meds if any: Prescribed or Continued at Discharge Meds if any: NOT Prescribed or Continued at Discharge Venous thromboembolism Inclusion Criteria VTE Diagnosis No VTE Type NONE VTE Confirmed by (Test) NONE Discharge Core Measures - Per Current guidelines, there needs to be overlap - treatment for the first 5 days of Warfarin therapy. - If discharged on Warfarin prior to 5 days of - overlap therapy, the patient will need to be - assessed for post discharge needs including - *Post discharge parental anticoagulation - *Warfarin and/or parental anticoagulation education - *Follow up date to check INR post discharge At least 5 days overlap therapy as Inpatient No Meds if any: Prescribed or Continued at Discharge Note: Overlap Therapy is Warfarin and Anticoagulant Meds if any: NOT Prescribed or Continued at Discharge
[2017-10-06] MEDS ORDERED: AUGMENTIN 875-1 EACH PO ×2 (07:40→11:26)
[2017-10-06 08:28] LABS: ABSOLUTE BASOPHIL COUNT 0 /CUMM (0.0-0.2); ABSOLUTE EOSINOPHIL COUNT 0.2 /CUMM (0.0-0.7); ABSOLUTE GRANULOCYTE CT 4.6 /CUMM (1.4-6.5); ABSOLUTE LYMPH COUNT 1.3 /CUMM (1.2-3.4); ABSOLUTE MONOCYTE COUNT 0.4 /CUMM (0.10-0.60); BASOPHIL % 0.3 % (0.0-2.0); EOSINOPHIL % 2.8 % (0-5); GRANULOCYTE % 70.6 % (42.2-75.2); HEMATOCRIT 30.6 % (37-47); MEAN CORPUSCULAR HGB 31.4 PG (27.0-31.0); MEAN CORPUSCULAR HGB CONC 34.1 G/DL (33.0-37.0); MEAN CORPUSCULAR VOLUME 92.3 FL (81.0-99.0); MEAN PLATELET VOLUME 8.7 FL (7.4-10.4); PLATELET COUNT 316 /CUMM (130-400); RBC DISTRIBUTION WIDTH 15.1 % (11.5-14.5); RED BLOOD CELL CT 3.32 /CUMM (4.20-5.40); WHITE BLOOD CELL COUNT 6.5 /CUMM (4.8-10.8)
[2017-10-06] MEDS ORDERED: MIRALAX119 GM PO ×2 (09:51→11:26)
--- NOTE | 2017-10-06 10:58 | PN- Att Addend ---
Attending Addendum Attending Brief Note Patient looking and feeling much better, much brighter, less congested than vital signs are stable no fever no major changes on physical today patient will be discharged home today with home care and the care of the . Intake & Output 10/06 1600 10/06 0400 10/05 1600 10/05 0400 10/04 0400 Intake Total 100 078 3114 150 925 300 Output Total Balance 574 541 1750 150 925 300 Intake, IV 120 150 750 150 925 300 Intake, Oral 400 0 Intake, Tube 120 Irrigant Number 0 0 Bowel Movements Patient 133 lb 133 lb 130 lb Weight Weight Bed scale Bed scale Measurement Method Current Medications Sig/Claudette Start time Last Medication Dose Route Stop Time Status Admin Acetylcysteine 2 ML BID 10/05 1018 AC INH Albuterol Sulfate 3 ML Q4P PRN 10/01 1100 AC INH Ampicillin Sodium/ 1,500 MG Q6 10/03 1200 AC 10/06 Sulbactam Sodium IV 0556 Sodium Chloride 100 ML Atorvastatin Calcium 40 MG QPM 10/01 2100 AC 10/05 PO 2015 Docusate Sodium 100 MG BID 10/06 0900 AC PO Fluticasone 2 SPRAY BID PRN 10/01 0300 AC Propionate BRANDON Heparin Sodium 5,000 UNIT Q8 10/01 0600 AC 10/06 (Porcine) SC 0556 Patient Medication 1 ED ONE ONE 10/05 1115 NH Teaching ED 10/05 1116 Polyethylene Glycol 17 GM DAILY 10/06 0900 AC 10/06 PO 0911 Senna/Docusate Sodium 1 TAB BID 10/06 0900 AC 10/06 PO 0911 Valproate Sodium 250 MG Q12 10/01 2300 AC 10/06 Sodium Chloride 50 ML IV 0911 Laboratory Tests 10/06/17 0756: Anion Gap 9, Estimated GFR > 60, BUN/Creatinine Ratio 5.7 L, CBC w Diff NO MAN DIFF REQ, RBC 3.32 L, MCV 92.3, MCH 31.4 H, MCHC 34.1, RDW 15.1 H, MPV 8.7, Gran % 70.6, Lymphocytes % 19.6 L, Monocytes % 6.7, Eosinophils % 2.8, Basophils % 0.3, Absolute Granulocytes 4.6, Absolute Lymphocytes 1.3, Absolute Monocytes 0.4, Absolute Eosinophils 0.2, Absolute Basophils 0 10/05/17 0810: Anion Gap 10, Estimated GFR > 60, BUN/Creatinine Ratio 2.5 L, CBC w Diff NO MAN DIFF REQ, RBC 3.31 L, MCV 92.7, MCH 30.7, MCHC 33.1, RDW 14.6 H, MPV 8.9, Gran % 79.5 H, Lymphocytes % 11.5 L, Monocytes % 7.3, Eosinophils % 1.4, Basophils % 0.3, Absolute Granulocytes 6.3, Absolute Lymphocytes 0.9 L, Absolute Monocytes 0.6, Absolute Eosinophils 0.1, Absolute Basophils 0 10/04/17 0748: Anion Gap 9, Estimated GFR > 60, BUN/Creatinine Ratio 2.9 L Vital Signs Date Time Temp Pulse Resp B/P B/P Pulse O2 O2 Flow FiO2 Mean Ox Delivery Rate 10/06 0908 95 Room Air Room Air 10/06 0701 98.9 51 20 124/58 94 Nasal Cannula 10/06 0000 Nasal 1.0L Cannula 10/05 2155 99.5 59 20 112/58 97 Nasal Cannula 10/05 1600 94 Nasal 1.0L Cannula 10/05 1449 98.0 68 24 120/60 93
[2017-10-06] MEDS ORDERED: ROBITUSSIN COU237 M1 PO (11:25)
== END 2017-10-06 12:40 | disposition home health service (06) | DRG 178 ==
LOC: ERH 23:30 → 2NA 10-01 03:10 → ERHI 10-01 03:10 → ENRESERV 10-01 04:27 → 2NA 10-01 04:43 → ENPENDDIS 10-06 11:19 → 2NA 10-06 12:40
PROVIDERS: Internal Medicine; Pediatrics; Student in an Organized Health Care Education/Training Program
DX: J15.6 Pneumonia due to other Gram-negative bacteria (principal); I69.354 Hemiplegia and hemiparesis following cerebral infarction affecting left non-dominant side; N39.0 Urinary tract infection, site not specified; B96.1 Klebsiella pneumoniae [K. pneumoniae] as the cause of diseases classified elsewhere; F03.90 Unspecified dementia, unspecified severity, without behavioral disturbance, psychotic disturbance, mood disturbance, and anxiety; E87.6 Hypokalemia; R13.10 Dysphagia, unspecified; E78.5 Hyperlipidemia, unspecified; I10 Essential (primary) hypertension; F32.9 Major depressive disorder, single episode, unspecified; Z79.51 Long term (current) use of inhaled steroids; F41.9 Anxiety disorder, unspecified
CPT/HCPCS: 2NASP; 36415; 36592; 71045; 74230; 81001; 82436; 87040; 87070; 87086; 93005; 93010; J0131; J0456; J0696; J0713; J1644; J7040; J7042; J7608